=== PATIENT | male | born 1950 | race Caucasian/White ===

== ENCOUNTER 2016-06-10 21:28 | Outpatient (CLI) | payer SELFPAY | END 2016-06-10 21:29 | disposition EMS.NT | DX: R11.2 Nausea with vomiting, unspecified (principal) ==

== ENCOUNTER 2016-06-10 22:10 | Emergency (ER) | payer SELFPAY ==
[2016-06-11] MEDS ORDERED: ONDANSETRON 4 MG/2 ML VIAL IVP STA (01:03)
[2016-06-11] MEDS ORDERED: FOLIC ACID INJ 1 MG, THIAMINE INJ 100 MG, MAGNESIUM SULFATE 2 GM, MULTIVITAMIN 10 ML in... IV STA ×5 (01:03)
[2016-06-11] MEDS ORDERED: ONDANSETRON 4 MG/2 ML VIAL ONE (01:12)
[2016-06-11] MEDS ORDERED: MAGNESIUM SULFATE 2 GRAM 50 ML IV ONE (01:12)
[2016-06-11] MEDS ORDERED: THIAMINE 100 MG/1 ML 2 ML MDV ONE (01:12)
[2016-06-11] MEDS ORDERED: SODIUM CHLORIDE 0.9% 1,000 ML IV ONE (03:04)
[2016-06-11] MEDS ORDERED: ONDANSETRON ODT 4 MG TABLET TL STA (04:12)
[2016-06-11] MEDS ORDERED: ONDANSETRON ODT 4 MG TABLET ONE (04:16)
== END 2016-06-11 04:27 | disposition home or self-care (01) ==
DX: E86.0 Dehydration (principal); R11.2 Nausea with vomiting, unspecified
CPT/HCPCS: 36415; 80053; 83690; 84484; 85025; 96374; 96375; 99283; 99284; J3411; Q0162

== ENCOUNTER 2018-04-20 09:22 | Emergency (ER) | payer MEDICARE ==
[2018-04-20] MEDS ORDERED: TETANUS/DIPHTHERIA/PERTUSSIS 0.5 ML SYRINGE IM ONE (10:31)
--- NOTE | 2018-04-20 10:41 | ED Physician Documentation ---
PD HPI HEAD INJURY - Stated complaint Stated Complaint: GLF - Chief complaint Chief Complaint: Neuro - History obtained from History obtained from: Patient, Family - History of Present Illness Mechanism of head injury: Fell Where head injury occurred: Home Timing - onset: Last night Pain level max: 5 Pain level now: 3 Location of injury: Back Quality of pain: Pain, Aching, Dull Associated symptoms: LOC ("a few seconds"). No: Nausea / vomiting, Neck pain, Paresthesias, Seizures Symptoms improve with: Rest Symptoms worsen with: Palpation, Movement Contributing factors: No: Anticoagulated, Intoxicated Similar symptoms before: Has not had sx before Recently seen: Not recently seen Review of Systems Constitutional: denies: Fever, Chills Respiratory: denies: Cough GI: denies: Diarrhea Skin: denies: Rash Musculoskeletal: denies: Neck pain, Back pain Neurologic: denies: Focal weakness, Numbness PD PAST MEDICAL HISTORY - Past Medical History Past Medical History: Yes Cardiovascular: Congestive heart failure Endocrine/Autoimmune: None GI: None Psych: None Other Past Medical History: HX ONLY OF HTN - CONTROLLED W/ LISINOPRIL 5MG - Past Surgical History Past Surgical History: Yes - Present Medications Home Medications: Ambulatory Orders Medication Instructions Recorded Confirmed Cyclobenzaprine [Flexeril] 10 mg PO TID PRN #20 tablet 03/15/13 HYDROcod/ACETAM 5/325 [Vicodin 1 - 2 ea PO Q6H PRN #15 tablet 03/15/13 5/325] Ondansetron Odt [Zofran] 4 mg TL Q6H PRN #10 tablet 06/11/16 - Allergies Allergies/Adverse Reactions: Allergies Allergy/AdvReac Type Severity Reaction Status Date / Time No Known Drug Allergies Allergy Verified 03/15/13 12:04 - Social History Does the pt smoke?: No Smoking Status: Never smoker Does the pt drink ETOH?: Yes Does the pt have substance abuse?: No PD ED PE NORMAL - Vitals Vital signs reviewed: Yes - General General: Alert and oriented X 3, No acute distress - HEENT HEENT: PERRL, Moist mucous membranes, Other (Large U shaped laceration to the occiput. No palpable scalp hematomas) - Neck Neck: Supple, no meningeal sign, No bony TTP - Cardiac Cardiac: RRR - Respiratory Respiratory: No respiratory distress, Clear bilaterally - Derm Derm: Warm and dry - Neuro Neuro: Alert and oriented X 3, No motor deficit, No sensory deficit - Psych Psych: Normal mood, Normal affect Results - Vitals Vitals: Vital Signs - 24 hr 04/20/18 04/20/18 09:46 11:52 Temperature 36.8 C Heart Rate 77 74 Respiratory 16 16 Rate Blood Pressure 154/83 H 119/78 O2 Saturation 99 Oxygen O2 Source Room air - Rads (name of study) Head CT Radiology: Prelim report reviewed, EMP read contemporaneously, See rad report (No acute abnormality) Procedures - Laceration (location) Occipital Length in cm: 6 Wound type: Curved, Into subcut fat, Clean Neurovascular status: Sensory intact, Vascular intact Wound Preparation: Irrigated copiously NS Skin layer closure: Agapito Other: Patient tolerated well, No complications, Neurovascular intact, Tetanus booster given (Tdap) Complexity: Simple PD MEDICAL DECISION MAKING - ED course Complexity details: reviewed results, re-evaluated patient, considered differential, d/w patient, d/w family ED course: Patient with a closed head injury and an occipital scalp laceration. Repaired with agapito. Tolerated well. Negative head CT. Warnings of infection and instructions on wound care given at bedside. Also counseled on how to minimize scarring. Head injury instructions given at bedside patient and family counseled regarding signs and symptoms for which I believe and urgent re- evaluation would be necessary. Patient with good understanding of and agreement to plan and is comfortable going home at this time This document was made in part using voice recognition software. While efforts are made to proofread this document, sound alike and grammatical errors may occur. Departure - Departure Disposition: 01 Home, Self Care Clinical Impression: Scalp laceration Qualifiers: Encounter type: initial encounter Qualified Code(s): S01.01XA - Laceration without foreign body of scalp, initial encounter Head injury, closed Qualifiers: Encounter type: initial encounter Qualified Code(s): S09.90XA - Unspecified injury of head, initial encounter Condition: Good Instructions: ED Head Injury Closed, ED Laceration Scalp Stitch Or Stap Follow-Up: Wojciech Cevlalos DO [Primary Care Provider] - (in 10-14 days for staple removal ) Comments: Keep the wound clean. Return if you worsen. Your head CT is negative. The agapito should be removed in 10-14 days with your doctor. Return if you notice redness, swelling or drainage from the wound. Discharge Date/Time: 04/20/18 11:52
--- NOTE | 2018-04-20 11:04 | CT Report ---
Reason: fall, head injury Procedure Date: 04/20/2018 Accession Number: [id number] / [id number] Procedure: CT - HEAD WO CPT Code: FULL RESULT: EXAM: CT HEAD EXAM DATE: 04/20/2018 10:47 AM. CLINICAL HISTORY: Fall, head injury. Posterior laceration and bruising. COMPARISON: None. TECHNIQUE: Multiaxial CT images were obtained from the foramen magnum to the vertex. Reformats: Sagittal and coronal. IV contrast: None. In accordance with CT protocol optimization, one or more of the following dose reduction techniques were utilized for this exam: automated exposure control, adjustment of mA and/or KV based on patient size, or use of iterative reconstructive technique. FINDINGS: Parenchyma: No intraparenchymal hemorrhage. No evidence of mass, midline shift, or CT findings of infarction. Joe-white differentiation is distinct. Extraaxial Spaces: Normal for age. No subdural or epidural collections identified. Ventricles: Normal in size and position. Sinuses and Orbits: Imaged paranasal sinuses, orbits, and mastoids show no significant abnormality. Bones: No evidence of fracture or calvarial defect. Other: There is focal scalp soft tissue swelling and laceration at the posterior vertex. IMPRESSION: 1. No intracranial hemorrhage, mass-effect, or CT evidence of acute infarct, or other acute intracranial abnormality. 2. Focal scalp soft tissue swelling and laceration at the posterior vertex. RADIA
[2018-04-20] MEDS ORDERED: BACITRACIN OINT TOP STA (11:37)
[2018-04-20 11:54] VITALS: BP 119/78
== END 2018-04-20 11:52 | disposition home or self-care (01) ==
LOC: ED 09:22
DX: S01.01XA Laceration without foreign body of scalp, initial encounter (principal); S09.90XA Unspecified injury of head, initial encounter; W18.30XA Fall on same level, unspecified, initial encounter; Y92.009 Unspecified place in unspecified non-institutional (private) residence as the place of occurrence of the external cause; Z23 Encounter for immunization; I10 Essential (primary) hypertension
CPT/HCPCS: 12002; 70450; 90471; 90715; 99283; A9270

== ENCOUNTER 2019-01-10 07:26 | Emergency (ER) | payer MEDICARE ==
[2019-01-10] MEDS ORDERED: HYDROcod/ACETAM 5/325 MG TABLET PO STA (08:12)
--- NOTE | 2019-01-10 08:13 | ED Physician Documentation ---
History of Present Illness - Stated complaint Stated Complaint: ARM PX - Chief complaint Chief Complaint: Ext Problem - History obtained from History obtained from: Patient - History of Present Illness Timing: How many days ago (3) Pain level max: 9 Pain level now: 7 - Additonal information Additional information: This is a 68-year-old man who presents with complaints that for the Past 3 days he is been unable to lift his right arm away from his body. It started after his significant other had given him a neck rub. 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 He had the last 4-1/2 days off however. The pain is been increasing since it initially started as a 5-7 out of 10 at rest and goes up to 9 out of 10 if he tries to move it at all. He noticed a little numbness in the right hand while he was laying down but that resolved within minutes. He denies any prior neck or rotator cuff injury. He does have a history of bursitis and arthritis and uses occasional ibuprofen for the arthritis. He took 2 ibuprofen [id number] it did nothing to help the pain. Patient has felt a little bit of short of breath because of the pain but denies any chest pain or coughing. No fever. He has a history of hypertension and is not a diabetic. He is right-handed. Review of Systems Constitutional: denies: Fever Cardiac: denies: Chest pain / pressure Respiratory: denies: Dyspnea, Cough Musculoskeletal: reports: Extremity pain, Joint pain. denies: Neck pain Neurologic: reports: Numbness PD PAST MEDICAL HISTORY - Past Medical History Past Medical History: Yes Cardiovascular: Hypertension Endocrine/Autoimmune: None GI: None : None Psych: Depression, Anxiety Musculoskeletal: Osteoarthritis - Past Surgical History Past Surgical History: Yes - Present Medications Home Medications: Ambulatory Orders Medication Instructions Recorded Confirmed Hydrocodone/Acetaminophen 1 - 2 each PO Q6H PRN #14 tablet 01/10/19 [Hydrocodon-Acetaminophen 5-325] Lisinopril 5 mg PO DAILY 01/10/19 01/10/19 Naloxegol Oxalate [Movantik] 0 mg PO DAILY 01/10/19 01/10/19 - Allergies Allergies/Adverse Reactions: Allergies Allergy/AdvReac Type Severity Reaction Status Date / Time No Known Drug Allergies Allergy Verified 01/10/19 07:36 - Social History Does the pt smoke?: No Smoking Status: Never smoker Does the pt drink ETOH?: No Does the pt have substance abuse?: No Substance Use and Type: Marijuana PD ED PE NORMAL - Vitals Vital signs reviewed: Yes - General General: Alert and oriented X 3, No acute distress, Well developed/nourished - HEENT HEENT: Atraumatic, PERRL, Moist mucous membranes - Neck Neck: No bony TTP - Respiratory Respiratory: No respiratory distress - Derm Derm: Normal color, Warm and dry, No rash - Extremities Extremities: Other (The right shoulder actually looks a little swollen around the deltoid. He has pain at the greater trochanter. He is unable to lift the arm away from his body at all actively and passively can only abduct it to approximately 5 to 10 degrees. He has a 2+ radial pulse. Sensation is intact in the hand forearm and over the deltoid to light touch. He has 5 out of 5 gelatin maker utility strength and he is able to abduct the pinky and thumb.) - Neuro Neuro: Alert and oriented X 3, No motor deficit, No sensory deficit, Normal speech - Psych Psych: Normal mood, Normal affect Results - Vitals Vitals: Vital Signs - 24 hr 01/10/19 07:34 Temperature 36.4 C L Heart Rate 96 Respiratory 16 Rate Blood Pressure 151/98 H O2 Saturation 96 Oxygen O2 Source Room air PD MEDICAL DECISION MAKING - ED course Complexity details: reviewed results, d/w patient (The imaging showed calcific tendinitis and his symptoms and exam are consistent with rotator cuff tendinopathy. He received Hydrocodone 1 tablet and had slight improvement in the pain but still only able to abduct the arm about 5-10 degrees. Declined sling. Instructed on ROM eeercises. Rx for Hydrocodone provided.) Departure - Departure Disposition: 01 Home, Self Care Clinical Impression: Tendinopathy of right rotator cuff Condition: Good Instructions: ED Tendinitis Rotator Cuff Follow-Up: Wojciech Cevallos DO [Primary Care Provider] - Prescriptions: Hydrocodone/Acetaminophen [Hydrocodon-Acetaminophen 5-325] 1 - 2 each PO Q6H PRN #14 tablet PRN Reason: pain Comments: Take ibuprofen [id number] and ice the shoulder for pain. Hydrocodone if needed for pain but do not drive or operate machinery if taking the Hydrocodone. Do not take any Tylenol with the Hydrocodone. Do range of motion exercises as discussed. Follow-up with your doctor if pain not improving. Forms: Activity restrictions
--- NOTE | 2019-01-10 08:37 | XRAY Report ---
Reason: R shoulder pain Procedure Date: 01/10/2019 Accession Number: [id number] / [id number] Procedure: XR - Shoulder 3 View RT CPT Code: Final Report FULL RESULT: EXAM: RIGHT SHOULDER RADIOGRAPHY EXAM DATE: 01/10/2019 08:27 AM. CLINICAL HISTORY: R shoulder pain. COMPARISON: None. TECHNIQUE: 3 views. FINDINGS: Bones: Normal. No fracture or bone lesion. Joints: Glenohumeral osteophyte.. Mild AC joint hypertrophy. Soft tissues: Calcific tendinitis IMPRESSION: 1. Mild DJD. 2. Calcific tendinitis RADIA
[2019-01-10 09:35] VITALS: BP 137/98
== END 2019-01-10 09:37 | disposition home or self-care (01) ==
LOC: ED 07:26
DX: M75.31 Calcific tendinitis of right shoulder (principal); M19.011 Primary osteoarthritis, right shoulder; I10 Essential (primary) hypertension
CPT/HCPCS: 73030; 99283; 99284; A9270

== ENCOUNTER 2019-03-09 12:41 | Outpatient (CLI) | payer MEDICARE | END 2019-03-09 12:42 | disposition short-term general hospital (02) | LOC: EMS 12:41 | PROVIDERS: ATTEND Surgery | DX: R07.9 Chest pain, unspecified (principal) | CPT/HCPCS: A0425; A0427 ==

== ENCOUNTER 2020-01-02 19:49 | Outpatient (CLI) | payer MEDICARE | END 2020-01-02 19:50 | disposition EMS.NT | LOC: EMS 19:49 | PROVIDERS: ATTEND Surgery | DX: R29.810 Facial weakness (principal); R29.818 Other symptoms and signs involving the nervous system ==

== ENCOUNTER 2020-01-02 20:29 | Observation (INO) | payer MEDICARE ==
[2020-01-02 20:50] LABS: BASOPHILS # (AUTO) 0.1 10^3/uL (0.0-0.1); BASOPHILS % (AUTO) 0.8 %; EOSINOPHILS # (AUTO) 0.1 10^3/uL (0.0-0.7); EOSINOPHILS % (AUTO) 0.6 %; HGB - HEMOGLOBIN 15.1 g/dL (14.0-18.0); LYMPHOCYTES # (AUTO) 2.7 10^3/uL (1.5-3.5); LYMPHOCYTES % (AUTO) 34.4 %; MEAN CORPUSCULAR HEMOGLOBIN 33.7 pg (27.0-31.0); MEAN CORPUSCULAR HGB CONC 34.6 g/dL (32.0-36.0); MEAN CORPUSCULAR VOLUME 97.3 fL (80.0-94.0); MEAN PLATELET VOLUME 10.2 fL (7.4-11.4); MONOCYTES # (AUTO) 0.7 10^3/uL (0.0-1.0); MONOCYTES % (AUTO) 9.3 %; NEUTROPHILS # (AUTO) 4.3 10^3/uL (1.5-6.6); NEUTROPHILS % (AUTO) 54.5 %; PLT - PLATELET COUNT 133 10^3/uL (130-450); RED BLOOD COUNT 4.48 10^6/uL (4.70-6.10); RED CELL DISTRIBUTION WIDTH 13.4 % (12.0-15.0); WHITE BLOOD COUNT 7.9 x10^3/uL (4.8-10.8)
--- NOTE | 2020-01-02 20:52 | ED Physician Documentation ---
PD HPI FOCAL NEURO - Stated complaint Stated Complaint: DIZZY, UNABLE TO WALK, LEFT SIDED DROOPING - Chief complaint Chief Complaint: Neuro - History obtained from History obtained from: Patient - History of Present Illness Timing - onset: How many hours ago (6) Timing - duration: Hours (6) Timing - details: Abrupt onset Severity of deficit: Moderate Weakness: Face, Arm, Leg, Left Numbness: No: Face, Arm, Hand, Leg, Foot, Right, Left Associated symptoms: Fall (states fell yesterday into the bushes coming out of a store.). No: Headache, Nausea / vomiting, Seizure, Syncope Baseline status: positive: A&OX3, ambulatory, indep Similar symptoms before: Has not had sx before Recently seen: Not recently seen Review of Systems Ten Systems: 10 systems reviewed and negative Constitutional: denies: Fever, Chills Nose: denies: Rhinorrhea / runny nose, Congestion Cardiac: denies: Chest pain / pressure Respiratory: denies: Cough GI: denies: Abdominal Pain, Nausea, Vomiting, Diarrhea Skin: denies: Rash Musculoskeletal: denies: Neck pain, Back pain Neurologic: denies: Confused, Altered mental status, Headache PD PAST MEDICAL HISTORY - Past Medical History Cardiovascular: Hypertension Endocrine/Autoimmune: None GI: None : None Psych: Depression, Anxiety Musculoskeletal: Osteoarthritis - Past Surgical History Past Surgical History: Yes - Present Medications Home Medications: Ambulatory Orders Medication Instructions Recorded Confirmed lisinopriL [Lisinopril] 10 mg PO DAILY 01/10/19 01/10/19 Aspirin Chewable [[place] 1 tab PO DAILY 01/02/20 01/02/20 Aspirin] - Allergies Allergies/Adverse Reactions: Allergies Allergy/AdvReac Type Severity Reaction Status Date / Time No Known Drug Allergies Allergy Verified 01/10/19 07:36 - Social History Does the pt smoke?: No Smoking Status: Never smoker Does the pt drink ETOH?: No Does the pt have substance abuse?: No PD ED PE NORMAL - Vitals Vital signs reviewed: Yes - General General: Alert and oriented X 3, No acute distress, Well developed/nourished - HEENT HEENT: Atraumatic, PERRL, Moist mucous membranes, Pharynx benign - Neck Neck: Supple, no meningeal sign, No bony TTP - Cardiac Cardiac: RRR, Strong equal pulses - Respiratory Respiratory: No respiratory distress, Clear bilaterally - Abdomen Abdomen: Soft, Non tender, Non distended - Derm Derm: Warm and dry - Extremities Extremities: No edema, No calf tenderness / cord - Neuro Neuro: Alert and oriented X 3, stove cleaner 2-12 intact, No motor deficit, No sensory deficit, Normal speech Eye Opening: Spontaneous Motor: Obeys Commands Verbal: Oriented GCS Score: 15 - Psych Psych: Normal mood, Normal affect NIHSS - Time Time: 20:32 - Level of Consciousness Level of consciousness: (0) Alert, Keenly responsive LOC Questions: (0) Answers both Q's correct LOC Commands: (0) Performs both correctly - Gaze Best Gaze: (0) Normal - Visual Visual: (0) No loss - Facial Palsy Facial Palsy: (0) Normal, symmetrical movement - Motor Arms (both separate) Motor Arm (right): (0) No drift Motor Arm (left): (0) No drift - Motor Legs (both separate) Motor Leg (right): (0) No drift Motor Leg (left): (0) No drift - Limb Ataxia Limb Ataxia: (0) Absent - Sensory Sensory: (0) Normal - Best Language Best Language: (0) No aphasia - Dysarthria Dysarthria: (0) Normal - Extinction and Inattention (formally neg Extinction and inattention: (0) No abnormality - Total Score/Results Total Score/Result: 0 Results - Vitals Vitals: Vital Signs - 24 hr 01/02/20 01/02/20 01/02/20 20:35 21:11 21:43 Temperature 37 C Heart Rate 84 87 90 Respiratory 20 15 16 Rate Blood Pressure 167/99 H 155/92 H 147/92 H O2 Saturation 97 98 99 Oxygen O2 Source Room air - EKG (time done) 2031 Rate: Rate (enter#) (86) Rhythm: NSR [place]: Normal Intervals: Normal MO QRS: Normal Ischemia: Normal ST segments, Q waves (III) - Labs Labs: Laboratory Tests 01/02/20 01/02/20 01/02/20 20:37 20:43 20:43 WBC 7.9 RBC 4.48 L Hgb 15.1 Hct 43.6 MCV 97.3 H MCH 33.7 H MCHC 34.6 RDW 13.4 Plt Count 133 MPV 10.2 Neut # (Auto) 4.3 Lymph # (Auto) 2.7 [place] # (Auto) 0.7 Eos # (Auto) 0.1 Baso # (Auto) 0.1 Absolute Nucleated RBC 0.00 Nucleated RBC % 0.0 PT INR APTT Sodium 140 Potassium 3.6 Chloride 96 L Carbon Dioxide 26 Anion Gap 18.0 H BUN 13 Creatinine 0.7 Estimated GFR (MDRD) 111 Glucose 93 POC Whole Bld Glucose 84 Calcium 9.3 Total Bilirubin 0.6 AST 88 H ALT 85 H Alkaline Phosphatase 105 Total Protein 8.7 H Albumin 4.8 Globulin 3.9 Albumin/Globulin Ratio 1.2 Lipase 61 H 01/02/20 20:43 WBC RBC Hgb Hct MCV MCH MCHC RDW Plt Count MPV Neut # (Auto) Lymph # (Auto) [place] # (Auto) Eos # (Auto) Baso # (Auto) Absolute Nucleated RBC Nucleated RBC % PT 13.1 H INR 1.2 APTT 25.6 Sodium Potassium Chloride Carbon Dioxide Anion Gap BUN Creatinine Estimated GFR (MDRD) Glucose POC Whole Bld Glucose Calcium Total Bilirubin AST ALT Alkaline Phosphatase Total Protein Albumin Globulin Albumin/Globulin Ratio Lipase - Rads (name of study) head CT Radiology: Prelim report reviewed, EMP read contemporaneously, See rad report (no acute abnormality.) PD MEDICAL DECISION MAKING - ED course Complexity details: reviewed results, re-evaluated patient, considered differential, d/w patient ED course: Symptoms fully resolved in the emergency department. ABCD 2 score is 6. High risk. CT angiogram of the head and neck were ordered. These will be followed up by the hospitalist. Patient will be placed into observation for TIA work-up. Has never had similar symptoms and has never had a TIA work-up. Patient did take aspirin prior to arrival today. Discussed the case with Dr. Baig, hospitalist who graciously accepts This document was made in part using voice recognition software. While efforts are made to proofread this document, sound alike and grammatical errors may occur. Departure - Departure Disposition: ED Place in Observation Clinical Impression: TIA (transient ischemic attack) Condition: Stable
[2020-01-02 20:55] LABS: INR 1.2 (0.8-1.2); PT - PROTHROMBIN TIME 13.1 secs (9.9-12.6)
[2020-01-02 21:02] LABS: PARTIAL THROMBOPLASTIN TIME 25.6 secs (24.9-33.3)
[2020-01-02 21:06] LABS: ALBUMIN 4.8 g/dL (3.2-5.5); ALBUMIN/GLOBULIN RATIO 1.2 (1.0-2.2); BILIRUBIN,TOTAL 0.6 mg/dL (0.2-1.0); CALCIUM 9.3 mg/dL (8.5-10.3); CREATININE 0.7 mg/dL (0.6-1.2); TOTAL PROTEIN 8.7 g/dL (6.7-8.2)
--- NOTE | 2020-01-02 21:06 | CT Report ---
PROCEDURE: Head W/O Stroke Protocol INDICATIONS: L sided weakness TECHNIQUE: Noncontrast 4.5 mm thick angled axial sections acquired from the foramen magnum to the vertex, with c oronal reformats. For radiation dose reduction, the following was used: automated exposure control, adjustment of mA and/or kV according to patient size. COMPARISON: FINDINGS: Image quality: Excellent. CSF spaces: Basal cisterns are patent. No extra-axial fluid collections. Ventricles are normal in size and shape. Brain: No midline shift. No intracranial masses or hemorrhage. Joe-white matter interface is norm al. Skull and face: Calvarium and visualized facial bones are intact, without suspicious lesions. Sinuses: Visualized sinuses and mastoids are clear. IMPRESSION: Normal examination, no contraindication to TPA administration is found. These findings were immediately called to the emergency room physician caring for the patient, and di scussed in detail. Time of call was 9:01:00 in the evening. This study fulfills neurological imaging criteria for inclusion or exclusion of acute stroke therapie s based on available published neurological imaging guidelines. Reviewed by: Lc Rico MD on 01/02/2020 9:05 PM PST Approved by: Lc Rico MD on 01/02/2020 9:05 PM PST Station ID: [id number]
[2020-01-02] MEDS ORDERED: ONDANSETRON ODT 4 MG TABLET TL PRN (21:45)
[2020-01-02] MEDS ORDERED: ACETAMINOPHEN 325 MG TABLET PO PRN (21:45)
[2020-01-02] MEDS ORDERED: oxyCODONE 5 MG TABLET PO PRN (21:45)
[2020-01-02] MEDS ORDERED: ONDANSETRON 4 MG/2 ML VIAL IVP PRN (21:45)
[2020-01-02] MEDS ORDERED: SODIUM CHLORIDE FLUSH 0.9% 10 ML SYRINGE IVP PRN (21:45)
[2020-01-02] MEDS ORDERED: ATORVASTATIN 40 MG TABLET PO STA (21:49)
[2020-01-02] MEDS ORDERED: ASPIRIN 325 MG TABLET PO STA (21:49)
[2020-01-02] MEDS ORDERED: IOVERSOL 320 100 ML VIAL IVP ONE ×2 (21:56→22:38)
--- NOTE | 2020-01-02 21:56 | HISTORY & PHYSICAL EXAMINATION ---
Chief Complaint - Chief Complaint Chief Complaint: Left facial droop and left body weakness History of Present Illness - Admitted From Admitted From:: Home via private vehicle to ER - History Obtained From Records Reviewed: [facility] History obtained from: Dr. Ramon and patient Exam Limitations: None - History of Present Illness HPI Comment/Other: This is a 69-year-old white male whose risk for stroke is male sex, age, and hypertension. He does not smoke. He does not have diabetes. He fell yesterday into the bushes coming out of a store. Cannot say why he fell, But he felt dizzy. In the 30 feet it take to get to his girlfriend's car he just could not keep his balance and fell onto the bushes outside of [employer]. He denied loss of consciousness, palpitations, shortness of breath. No facial dysesthesias. He then hadhad an abrupt onset of left facial droop, left body weakness 6 hours prior to admission. He states that he was not weak. That he had no focal deficits. He was just hurting over his left hip and his left knee where he fell. He is not aware that he was having focal deficits according to his family. He is completely surprised when I tell him that. He said that by the time he got to the emergency room he was feeling fine and he only came here because he was worried. He felt disoriented, not right, and his left leg was not moving the way it was supposed to. He attributed the lack of movement to falling on the ground and hurting his hip. He lives with his girlfriend. Her son was visiting from [place] and drove him to the emergency room. He was evaluated by Dr. Ramon in the emergency room and blood pressure is 167/99. It is subsequently gone down to 147/92. He is afebrile, normotensive, oxygenating well on room air. His telemetry showed sinus rhythm, EKG shows sinus rhythm. His total NIH SS score is 0. He is alert, responsive, answering questions and performing commands correctly. No cranial nerve or motor deficit. As such all of his symptomatology has resolved by the time is gotten to the emergency room. CT of the head is a normal examination. CT angiogram of the head and neck are ordered and pending. History - Past Medical History Cardiovascular: reports: Hypertension, Coronary artery disease (He said that he fell flat on his face at a music festival in [place] about 3 years ago. He never got an evaluation for and did see a local doctor who told him he may have had a heart attack.) Respiratory: reports: None Neuro: reports: Other (Numerous falls at work. 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 Dad at age 67 of metastatic lung cancer and was also a smoker. 1 sister is 76 and healthy. One daughter has been smoking since the age of 14 and he worries about her getting emphysema. But no hypertension, diabetes, cancer, heart attack Living arrangement: At home Living Situation: With spouse/s.o. Social History Notes: Born and raised in the [facility]. 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 Came to [facility] approximately 10 years ago with his girlfriend. She is born and raised in [place], and came back to take care of her mom. They moved in to her mom's house, and took care of her until she . He still lives with his girlfriend. He never smoked cigarettes. 50 years ago, in the 70s he did speed a couple of times but he is never done heroin, LSD, cocaine. He does have a history of alcohol abuse. He is drinking up to half a pint of vodka a day sometimes. Started cutting back 5 years ago. Right now he is doing about a beer a day. once before. . His girlfriend is Yvonne Morgan. He regards her as his DURABLE POWER OF BALLING HEAD TENDER. I am also allowed to speak to his daughter, Saba Montelongo if need be. - Substance History Use: Uses substance without health or social issues: Alcohol Abuse: Recurrent use of substance despite neg consequences: NONE Dependence: Experiences withdrawal or developed tolerances: NONE - POLST Patient has POLST: No POLST Status: Full Code Meds/Allgy - Home Medications Home Medications: Ambulatory Orders Medication Instructions Recorded Confirmed lisinopriL [Lisinopril] 10 mg PO DAILY 01/10/19 01/10/19 Aspirin Chewable [[place] 1 tab PO DAILY 01/02/20 01/02/20 Aspirin] - Allergies Allergies/Adverse Reactions: Allergies Allergy/AdvReac Type Severity Reaction Status Date / Time No Known Drug Allergies Allergy Verified 01/10/19 07:36 Review of Systems - Constitutional Constitutional: reports: Other (All constitutional review of systems negative) - Eyes Eyes: reports: Other (Developing rapid generalized vision loss.). denies: Pain, Amaurosis, Spots in vision, Field loss - Ears, Nose & Throat Ears, Nose & Throat: reports: Hearing loss, Tinnitus, Bleeding gums, Dental decay, Dental pain. denies: Ear pain, Hearing aids, Vertigo, Nasal pain, Nasal discharge, Postnasal drainage, Sore throat, Hoarseness - Cardiovascular Cariovascular: reports: Lightheadedness. denies: Irregular heart rate, Palpitations, Chest pain, Edema, Syncope, Exertional dyspnea, Decr. exercise tolerance - Respiratory Respiratory: denies: Cough, Sputum production, Wheezing, Snoring, SOB at rest, SOB with exertion - Gastrointestinal Gastrointestinal: denies: Abdominal pain, Abdominal distention, Constipation, Diarrhea, Bloody stools, Nausea - Genitourinary Genitourinary: reports: Frequency, Urgency, Other (Decreased urinary stream) - Musculoskeletal Musculoskeletal: reports: Muscle pain, Back pain, Muscle aches, Limited range of motion, Joint pain, Other (Multiple joint deformities over the years. Right now his left hand is cut from the fall yesterday, left wrist really hurts and left hip really hurts.) - Integumentary Integumentary: denies: Rash, Pruritis, Lesions - Neurological Neurological: reports: Dizziness (Yesterday causing the fall). denies: General weakness, Focal weakness, Headache, Incoordination, Slurred speech - Psychiatric Psychiatric: reports: Depression, Anxiety. denies: Delusions, Hallucinations - Endocrine Endocrine: denies: Polyuria, Polydypsia, Polyphagia - Hematologic/Lymphatic Hematologic/Lymphatic: denies: Anemia, Bruising, Petechiae, Blood clots Prior Level of Functionality: Completely independent with activities of daily living. Drives a car. Pays his own bills. Exam - Vital Signs Reviewed Vital Signs: Yes Vital Signs: Vital Signs x48h Temp Pulse Resp BP Pulse Ox 01/02/20 21:43 90 16 147/92 H 99 01/02/20 21:11 87 15 155/92 H 98 01/02/20 20:35 37 C 84 20 167/99 H 97 - Physical Exam General Appearance: positive: No acute distress, Alert, Other (5 foot 5 inch w jony male who 61.96 kg. 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 Back of scalp covered in old scars from lacerations. Multiple teeth missing.) Eyes Bilateral: positive: PERRL, EOMI ENT: positive: Pharynx nml, No signs of dehydration Neck: positive: No JVD, Lymphadenopathy (R) (Shotty), Lymphadenopathy (L) (Shotty). negative: Stiff neck Respiratory: positive: No respiratory distress. negative: Wheezes, Rales, Rhonchi Cardiovascular: positive: Regular rate & rhythm, Systolic murmur. negative: Gallop/S4, Friction rub Peripheral Pulses: positive: 1+ Abdomen: positive: Non-tender, No organomegaly, Nml bowel sounds, No distention Skin: positive: Warm, Dry Extremities: positive: No pedal edema, Other (Multiple fingers in the DIP and PIP areas deformed. Ulnar insertion site deformed on left hand. Lacerations on fingers on left hand. Tender left wrist. Tender left hip to touch. But range of motion intact.) Neurologic/Psychiatric: positive: Oriented x3, CN's nml (2-12), Motor nml, Sensation nml Conclusion/Plan - Problem List (1) TIA (transient ischemic attack) Conclusion/Plan: Symptoms of all resolved. Exam is now negative. Plan: Observation Aspirin 325 High-dose statin Review CT angiogram of head and neck Telemetry Echocardiogram MRI head (2) Hypertension Conclusion/Plan: Patient is on lisinopril. We will hold off on giving that. Allow blood pressure to run high in the face of a TIA. I.e. permissive hypertension Qualifiers: Hypertension type: essential hypertension Qualified Code(s): I10 - Essential (primary) hypertension (3) Fall due to stumbling Conclusion/Plan: He does not give a history of syncope. There is no palpitations. Difficult to say there is any arrhythmia involved in this fall yesterday resulting in the left wrist and left hip pain. Will check left hip film and left knee film tomorrow morning. Qualifiers: Encounter type: initial encounter Qualified Code(s): W01.0XXA - Fall on same level from slipping, tripping and stumbling without subsequent striking against object, initial encounter (4) Elevated liver enzymes Conclusion/Plan: He has an alcohol abuse history. No history of withdrawal or seizures. He also denies cirrhosis. Still drinking 1 beer a day. Plan: Acute hepatitis panel Ferritin, ceruloplasmin Ultrasound of liver - Lab Results Lab results reviewed: Yes Fish Bones: 01/02/20 20:43 01/02/20 20:43 - Diagnostic Imaging Results Diagnostic Imaging Results: positive: Final report reviewed Diagnostic Imaging Results Comments: CT of head without midline shift, intracranial masses or hemorrhage. - EKG Results EKG Interpreted Independently: No EKG Comparison: No prior EKG EKG Findings: Normal sinus rhythm. 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 No acute ST-T wave changes.
[2020-01-02 23:36] LABS: C. PNEUMONIAE- RESP PCR PANEL NOT DETECTED
[2020-01-03] MEDS: SODIUM CHLORIDE FLUSH 0.9% 10 ML SYRINGE IVP SCH ×2 (01:58→09:09)
[2020-01-03 05:32] LABS: BASOPHILS # (AUTO) 0.1 10^3/uL (0.0-0.1); BASOPHILS % (AUTO) 1.1 %; EOSINOPHILS # (AUTO) 0.1 10^3/uL (0.0-0.7); EOSINOPHILS % (AUTO) 0.9 %; HGB - HEMOGLOBIN 13.8 g/dL (14.0-18.0); LYMPHOCYTES # (AUTO) 1.8 10^3/uL (1.5-3.5); LYMPHOCYTES % (AUTO) 32.2 %; MEAN CORPUSCULAR HEMOGLOBIN 33.3 pg (27.0-31.0); MEAN CORPUSCULAR VOLUME 97.8 fL (80.0-94.0); MEAN PLATELET VOLUME 10.5 fL (7.4-11.4); MONOCYTES # (AUTO) 0.6 10^3/uL (0.0-1.0); MONOCYTES % (AUTO) 11.3 %; NEUTROPHILS % (AUTO) 54.1 %; PLT - PLATELET COUNT 124 10^3/uL (130-450); RED BLOOD COUNT 4.15 10^6/uL (4.70-6.10); RED CELL DISTRIBUTION WIDTH 13.4 % (12.0-15.0); WHITE BLOOD COUNT 5.6 x10^3/uL (4.8-10.8)
[2020-01-03 05:51] LABS: CHOL/HDL RATIO 2.8 (<5.0); CHOLESTEROL 210 mg/dL; HDL CHOLESTEROL 75 mg/dL; LDL CHOLESTEROL,CALCULATED 108 mg/dL; LDL/HDL RATIO 1.4 (<3.6); VLDL CHOLESTEROL 27 mg/dL
--- NOTE | 2020-01-03 08:21 | Ultrasound Report ---
PROCEDURE: Abdomen Complete INDICATIONS: elevated LFT in alcohol abuse hx TECHNIQUE: Real-time scanning was performed of the abdominal and retroperitoneal organs, with image documentatio n. COMPARISON: None. FINDINGS: Liver: Liver is normal in size and mildly heterogeneous in echotexture, with increased echotexture c onsistent with a combination of fatty infiltration and likely cirrhosis. Gallbladder: Gallbladder appears normal Biliary ducts: Intrahepatic bile ducts are non-dilated. Extrahepatic bile duct caliber measures 3.0 mm. Normal is 6-7 mm or less in diameter, or 10 mm or less post-cholecystectomy. Pancreas: Visualized portions of the pancreas are sonographically normal. Spleen: Spleen is normal in size and homogeneous in echotexture. Kidneys: Kidneys are normal in size and echotexture. Right kidney measures 10.1 cm long; left kidne y measures 9.7 cm long. No hydronephrosis or nephrolithiasis. No solid masses. A left renal cortic al cyst is present measuring only 1.6 cm in maximal dimension. Aorta: Visualized aorta is normal in caliber at less than 3 cm. Iliacs: Proximal common iliac arteries are normal in caliber at less than 2.5 cm. IVC: Intrahepatic inferior vena cava is patent. Miscellaneous: No free abdominal fluid. Note is made of a 160 cc postvoid bladder volume. IMPRESSION: Cirrhosis and fatty infiltration within the liver is considered likely present by the appearance of t he liver and the clinical history provided. The spleen is not enlarged, ascites is not found. Inciden cindy note is made of post void residual in this patient of 160 cc. Reviewed by: Lc Rico MD on 01/03/2020 8:20 AM [facility] Approved by: Lc Rico MD on 01/03/2020 8:20 AM PST Station ID: [id number]
[2020-01-03] MEDS ORDERED: LORazepam 2 MG/ML VIAL IVP PRN (09:16)
[2020-01-03 09:44] LABS: ALBUMIN 3.9 g/dL (3.2-5.5); ALBUMIN/GLOBULIN RATIO 1.1 (1.0-2.2); BILIRUBIN,TOTAL 0.8 mg/dL (0.2-1.0); CREATININE 0.6 mg/dL (0.6-1.2); TOTAL PROTEIN 7.6 g/dL (6.7-8.2)
--- NOTE | 2020-01-03 09:46 | CT Report ---
PROCEDURE: ANGIO HEAD W/WO INDICATIONS: L sided facial droop, L sided weakness, resolved CONTRAST: IV CONTRAST: Optiray 320 ml: 80 PO CONTRAST: *NO PO CONTRAST TECHNIQUE: Precontrast 4.5 mm thick angled axial sections acquired from the foramen magnum to the vertex. Afte r the administration of intravenous contrast, 1 mm thick sections acquired through the [place] of [place] is. Postcontrast 4.5 mm thick sections then re-acquired from the foramen magnum to the vertex. 3-di mensional xyiomam-ggflsfmzk-mvwmcavleu (MIP) and/or volume rendering reformats were acquired of the c entral intracranial vasculature. For radiation dose reduction, the following was used: automated ex posure control, adjustment of mA and/or kV according to patient size. COMPARISON: 04/20/2018 FINDINGS: Image quality: Excellent. Anterior circulation: Scattered athero splenic calcifications noted within the bilateral intracrania l internal carotid arteries without occlusion or hemodynamically significant stenosis. The flow withi n the paired anterior cerebral arteries is normal and symmetric. The flow within the middle cerebral arteries is normal and symmetric. The anterior communicating artery is seen. No aneurysms are seen . Posterior circulation: Visualized portions of the vertebral arteries demonstrate normal caliber, and join to form a normal appearing basilar artery. Flow within the posterior cerebral arteries is norm al and symmetric. No aneurysms are seen. CSF spaces: Ventricles are normal in size and shape. Basal cisterns are patent. No extra-axial flu id collections. Brain: No midline shift. No intracranial bleeds or masses. Joe-white matter interface appears int act. There is diffuse cortical volume loss with associated ex vacuo dilatation of the bilateral vent ricles. No acute intracranial hemorrhage or evidence of transcortical infarction. Scattered bilater al periventricular white matter hypoattenuation likely sequela from chronic small vessel ischemic dis ease. Atherosclerotic calcifications within the intracranial segments of the bilateral internal carot id arteries are noted. Skull and face: Calvarium and facial bones appear intact, without suspicious lesions. Sinuses: Visualized sinuses and mastoids are clear. IMPRESSION: 1. CT head without acute intracranial abnormalities. 2. Negative CT angiogram the head for hemodynamically significant stenosis, occlusion, dissection, or aneurysm. 3. Age-related senescent changes and sequela of chronic small vessel ischemic disease. No significant discrepancy with initial interpretation by overnight radiologist. Reviewed by: Javi Donahue MD on 01/03/2020 9:45 AM PST Approved by: Javi Donahue MD on 01/03/2020 9:45 AM PST Station ID: [id number]
--- NOTE | 2020-01-03 09:47 | PHARMACY PROGRESS NOTE ---
- Best Possible Medication History Admit Date and Time: 01/02/20 2367 Processed by: Pharmacy Medication History completed: Yes Patient Interview: Completed Secondary Source(s): Insurance records As the person ultimately responsible for medication therapy, providers are able to order a medication from an existing home medication list in [facility] via the "Reconcile Routine" prior to Confirmation of that medication by clinical support tech. Such practice is discouraged except when the physician, in their clinical judgment, deems that a medical need exists for a medication without regard to previous use.
[2020-01-03 09:52] LABS: BILIRUBIN,URINE NEGATIVE (NEGATIVE); GLUCOSE, URINE (UA) NEGATIVE (NEGATIVE); KETONES,URINE (UA) 15 mg/dL (NEGATIVE); LEUKOCYTE ESTERASE, URINE NEGATIVE (NEGATIVE); NITRITE,URINE NEGATIVE (NEGATIVE); OCCULT BLOOD,URINE TRACE-INTA (NEGATIVE); PH,URINE 5.5 PH (5.0-7.5); PROTEIN,URINE 30 mg/dL (NEGATIVE); UROBILINOGEN,URINE 0.2 (NORMAL) E.U./dL (NORMAL)
[2020-01-03 09:56] LABS: CLARITY,URINE CLEAR (CLEAR)
--- NOTE | 2020-01-03 09:56 | CT Report ---
PROCEDURE: ANGIO NECK W INDICATIONS: L sided facial droop, L sided weakness, resolved CONTRAST: IV CONTRAST: Optiray 320 ml: 80 PO CONTRAST: *NO PO CONTRAST TECHNIQUE: After the administration of intravenous contrast, 1.5 mm axial sections acquired from the aortic arch to the [place]. Coronal 3-D maximum intensity projection (MIP) and/or volume rendering ref ormats were then performed. For radiation dose reduction, the following was used: automated exposur e control, adjustment of mA and/or kV according to patient size. COMPARISON: None. FINDINGS: Image quality: Excellent. Carotid system: The great vessels demonstrate a conventional anatomy as they arise from the aortic a rch. The origins of the common carotid arteries appear patent. The common carotid arteries demonstr ate normal calibers and courses. There is atherosclerosis at the carotid bifurcations bilaterally wi th less than 50% stenosis at the origins of the bilateral internal carotid arteries. The internal car otid arteries demonstrate normal caliber and course. Intracranial segment of the bilateral internal c arotid arteries demonstrate atherosclerosis without hemodynamically significant stenosis. Posterior circulation: The origins of the vertebral arteries appear patent. A few scattered atherosc lerotic calcifications are noted in the vertebral arteries. Left vertebral artery appears to originat e off the aortic arch. The more superior portions of the vertebral arteries demonstrate normal course and caliber. They join to form a normal appearing basilar artery. Soft tissues: Visualized neck soft tissues demonstrate no suspicious abnormalities. The thyroid gla nd is normal in size. Bones: No suspicious bony lesions. Multiple mandibular dental caries are noted. Visualized cervical spine appears normally aligned. Moderate multilevel cervical spondylosis most pronounced from C5-6 through C7-T1. No acute compression fractures of the imaged spine. Craniocervical junction is intact. IMPRESSION: 1. There is less than 50% stenosis at the origin of the bilateral internal carotid arteries. Otherwis e, negative CT angiogram of the neck. 2. CT neck without acute abnormalities. 3. Multilevel cervical spondylosis most severe from C5-6 through C7-T1. 4. Several mandibular dental caries incidentally noted. Recommend clinical correlation. The estimate of stenosis included in the report of the imaging study was calculated using the NASCET method No significant discrepancy with initial interpretation by overnight radiologist. Reviewed by: Javi Donahue MD on 01/03/2020 9:55 AM PST Approved by: Javi Donahue MD on 01/03/2020 9:55 AM PST Station ID: [id number]
[2020-01-03 10:11] LABS: BACTERIA,URINE Rare /HPF (None Seen); MUCUS,URINE Few Strands; SQUAMOUS EPITHELIAL CELL,UR RARE Squamous (<= Few)
--- NOTE | 2020-01-03 12:01 | MRI Report ---
PROCEDURE: Brain W/O INDICATIONS: tia TECHNIQUE: Noncontrast axial T1 spin echo, axial T2 fast spin echo, sagittal and axial FLAIR, coronal T2 fast sp in echo, axial gradient echo, axial diffusion and ADC through the brain. COMPARISON: CT head 04/20/2018. CT angiography head and neck 11/02/2019. FINDINGS: Image quality: Excellent. CSF Spaces: Basal cisterns are patent. No extra-axial fluid collections. Ventricles are normal in size and shape. Brain: No intracranial masses or hemorrhage. Joe/white matter interface is normal. There is mild, diffuse cerebral volume loss. There are mild periventricular and subcortical white matter chronic mehdi rovascular ischemic changes. Brainstem appears normal. Diffusion-weighted images demonstrate no acut e ischemic insult. No chronic ischemic insults. Normal intravascular flow voids are present. Skull and face: Calvarium has normal marrow signal. Orbits appear normal. Sinuses: Sinuses and mastoids are clear. IMPRESSION: 1. No acute intracranial disease process. 2. No areas of acute or chronic infarction. 3. No abnormal internal mass or mass effect. 4. Mild, diffuse cerebral volume loss. 5. Mild periventricular and subcortical white matter chronic microvascular ischemic change. Reviewed by: Shelli Bautista MD, PhD on 01/03/2020 12:00 PM PST Approved by: Shelli Bautista MD, PhD on 01/03/2020 12:00 PM PST Station ID: [id number]
--- NOTE | 2020-01-03 14:08 | Discharge Plan ---
Discharge Plan Problem Reviewed?: Yes Disposition: Home, Self Care Condition: Stable Diet: Regular Activity Restrictions: Activity as Tolerated Shower Restrictions: No (fall precaution) Instruction Topics: TIA, Atorvastatin tablets Health Concerns: your symptoms were resolved. your all image studies are unremarkable. your Cholesterol level is slight high, Lipitor is prescribed for you Plan of Treatment: as above Care Goals: stabilization and improvement of your medical conditions Assessment: discuss the test results and care plan with you, you understood Additional Instructions or Follow Up instructions: You may followup with your PCP in 1-2 weeks, should your symptoms return or worsen, you may present ER or call 911 for help. No Smoking: If you smoke, Please STOP! Call for help. Follow-up with: Wojciech Cevallos DO [Primary Care Provider] -
--- NOTE | 2020-01-03 14:15 | DISCHARGE SUMMARY ---
Discharge Summary Admit Date: 01/02/20 Discharge Date: 01/03/20 Discharging Provider: Rusty Lee Primary Care Provider: Dr. Garcia Condition at Discharge: Stable Discharge Disposition: 01 Home, Self Care Discharge Facility Name: home - DIAGNOSES Discharge Diagnoses with Status of Each Condition: (1) TIA (transient ischemic attack) All Symptoms were resolved. Exam is now negative. PT/OT Evaluated patient and released the patient as well. patient image studies including MRI of the brain, CTA of the neck and head, echo all are unremarkable. (2) Hypertension stable (3) Fall due to stumbling He does not give a history of syncope. There is no palpitations. Patient denies any injury or pain. PT/OT Evaluated patient and released the patient as well. Educated patient for fall prevention. pt has hx of alcohol abuse. (4) Elevated liver enzymes Conclusion/Plan: Slight elevated and improved. He has an alcohol abuse history. No history of withdrawal or seizures. US reveals cirrhosis but no ascites. advise pt quit alcohol. (5)elevated cholesterol pt has slight elevated cholesterol level. pt is prescribed lipitor. - [facility] History of Present Illness: refer from Dr. Baig's HPI on 01/02/2020 This is a 69-year-old white male whose risk for stroke is male sex, age, and hypertension. He does not smoke. He does not have diabetes. He fell yesterday into the bushes coming out of a store. Cannot say why he fell, But he felt dizzy. In the 30 feet it take to get to his girlfriend's car he just could not keep his balance and fell onto the bushes outside of [employer]. He denied loss of consciousness, palpitations, shortness of breath. No facial dysesthesias. He then hadhad an abrupt onset of left facial droop, left body weakness 6 hours prior to admission. He states that he was not weak. That he had no focal deficits. He was just hurting over his left hip and his left knee where he fell. He is not aware that he was having focal deficits according to his family. He is completely surprised when I tell him that. He said that by the time he got to the emergency room he was feeling fine and he only came here because he was worried. He felt disoriented, not right, and his left leg was not moving the way it was supposed to. He attributed the lack of movement to falling on the ground and hurting his hip. He lives with his girlfriend. Her son was visiting from [place] and drove him to the emergency room. He was evaluated by Dr. Ramon in the emergency room and blood pressure is 167/99. It is subsequently gone down to 147/92. He is afebrile, normotensive, oxygenating well on room air. His telemetry showed sinus rhythm, EKG shows sinus rhythm. His total NIH SS score is 0. He is alert, responsive, answering questions and performing commands correctly. No cranial nerve or motor deficit. As such all of his symptomatology has resolved by the time is gotten to the emergency room. CT of the head is a normal examination. CT angiogram of the head and neck are ordered and pending. - HOSPITAL COURSE Hospital Course: Patient was found for dizziness and facial droop, and loss of balance and fall in the home. Patient denies any injury or pain. all patient image studies including MRI of the brain, CT of the head, CTA of the head and neck, echo, EKG all are unremarkable. PT and OT evaluated for patient, and released the patient go home. Pt's symptoms were total resolved in the hospital. Patient has a history of alcohol abuse, patient still drinks alcohol daily. It is high possible when patient drink of alcohol and loss of his balance, and fall. Patient was educated to quit alcohol. - ALLERGIES Allergies/Adverse Reactions: Allergies Allergy/AdvReac Type Severity Reaction Status Date / Time No Known Drug Allergies Allergy Verified 01/10/19 07:36 - MEDICATIONS Home Medications: Ambulatory Orders Medication Instructions Recorded Confirmed Aspirin Chewable [[facility] Anderson 81 mg PO DAILY 01/02/20 01/03/20 Aspirin] Atorvastatin [Lipitor] 20 mg PO DAILY #30 tablet 01/03/20 Lisinopril [Prinivil] 10 mg PO DAILY 01/03/20 01/03/20 - PHYSICAL EXAM AT DISCHARGE General Appearance: positive: No acute distress, Alert. negative: Lethargic Eyes Bilateral: positive: Normal inspection, PERRL, No lid inflammation ENT: positive: ENT inspection nml, No signs of dehydration. negative: Purulent nasal drainage Neck: positive: Nml inspection, Thyroid nml, Trachea midline. negative: Thyromegaly, Tracheal deviation Respiratory: positive: Chest non-tender, No respiratory distress, Breath sounds nml. negative: Wheezes, Rales, Rhonchi Cardiovascular: positive: Regular rate & rhythm, No murmur. negative: Tachycardia, Bradycardia, Systolic murmur, Diastolic murmur Peripheral Pulses: positive: 2+ Abdomen: positive: Non-tender, Nml bowel sounds, No distention. negative: T enderness, Guarding, Rebound Back: positive: Nml inspection Skin: positive: Color nml, No rash, Warm, Dry. negative: Cyanosis, Diaphoresis, Pallor Extremities: positive: Non-tender, Full ROM, Nml appearance. negative: Calf tenderness Neurologic/Psychiatric: positive: Oriented x3, Motor nml, Sensation nml, Mood/affect nml. negative: Weakness, Sensory loss, Facial droop, Slurred/abnml speech, Depressed mood/affect - LABS Result Diagrams: 01/03/20 05:09 01/03/20 05:09 - FOLLOW UP Follow Up: your symptoms were resolved. your all image studies are unremarkable. your Cholesterol level is slight high, Lipitor is prescribed for you. You may followup with your PCP in 1-2 weeks, should your symptoms return or worsen, you may present ER or call 911 for help. - TIME SPENT Time Spent in Discharge (Minutes): 30
[2020-01-03 18:05] VITALS: BP 165/101
[2020-01-04 12:31] LABS: HEPATITIS A IGM NON-REACTIVE (NON-REACTIVE); HEPATITIS B SURFACE ANTIGEN NON-REACTIVE (NON-REACTIVE); HEPATITIS C ANTIBODY NON-REACTIVE (NON-REACTIVE)
== END 2020-01-03 14:55 | disposition home or self-care (01) ==
LOC: ED 20:29 → MS2 21:45
PROVIDERS: ADMIT Specialist; ATTEND Nurse Practitioner Gerontology
DX: G45.9 Transient cerebral ischemic attack, unspecified (principal); I10 Essential (primary) hypertension; S61.219A Laceration without foreign body of unspecified finger without damage to nail, initial encounter; W01.0XXA Fall on same level from slipping, tripping and stumbling without subsequent striking against object, initial encounter; Y92.512 Supermarket, store or market as the place of occurrence of the external cause; M25.552 Pain in left hip; M25.562 Pain in left knee; R53.1 Weakness; Z91.81 History of falling; M25.532 Pain in left wrist; R74.8 Abnormal levels of other serum enzymes; Z20.828 Contact with and (suspected) exposure to other viral communicable diseases
CPT/HCPCS: 36415; 70450; 70496; 70498; 70551; 76700; 80053; 80061; 80074; 81001; 82390; 82728; 83690; 85025; 85610; 85651; 85730; 86141; 87631; 93005; 93306; 96374; 97161; 99285; A9270; G0378; J2060; Q9967; 0202U; 81003; 83721; 87086

== ENCOUNTER 2020-02-01 22:02 | Emergency (ER) | payer MEDICARE ==
[2020-02-01 22:11] VITALS: BP 157/96
--- NOTE | 2020-02-01 22:21 | ED Physician Documentation ---
PD HPI FOCAL NEURO - Stated complaint Stated Complaint: FACIAL DROOPING, OFF BALLANCE - Chief complaint Chief Complaint: Neuro - History obtained from History obtained from: Patient, Friend - History of Present Illness Timing - onset: Today Timing - duration: Minutes (The patient states his girlfriend encouraged him to come as she felt he had a slight facial droop, but mostly concerned that he was walking off balance. No noted weakness of arms nor legs. He states he did fall over without LOC and struck right jewish on furniture.) Timing - details: Gradual onset (symptoms of feeling some off balance this evening variably), Waxing and waning Severity of deficit: Moderate Weakness: Face (mild left, but states he has felt that for couple weeks at times.). No: Arm, Leg Numbness: No: Face, Arm, Leg Associated symptoms: Headache (right frontal after falling), Fall, Head injury. No: Nausea / vomiting, Syncope, Chest pain, Neck pain Contributing factors: negative: Anticoagulated (on ASA daily), Atrial fibrillation Baseline status: positive: A&OX3, ambulatory, indep Similar symptoms before: Diagnosis (brief facial symptoms recently with hospital workup for TIA. No evidence for CVA.) Recently seen: Emergency Dept, Admitted Review of Systems Constitutional: denies: Fever Nose: denies: Rhinorrhea / runny nose, Congestion Throat: denies: Sore throat Cardiac: denies: Chest pain / pressure Respiratory: denies: Dyspnea, Cough GI: denies: Abdominal Pain, Nausea, Vomiting, Diarrhea Neurologic: reports: Headache (just this evening after fall). denies: Focal weakness (he says his girlfriend though he had mild facial droop at home.), Numbness, Difficulty speaking, Altered mental status, LOC PD PAST MEDICAL HISTORY - Past Medical History Cardiovascular: Hypertension, Coronary artery disease Respiratory: None Neuro: Other Endocrine/Autoimmune: None GI: None : None HEENT: None Psych: Depression, Anxiety Musculoskeletal: Osteoarthritis, Chronic back pain, Other Derm: None - Past Surgical History Past Surgical History: Yes General: Other - Present Medications Home Medications: Ambulatory Orders Medication Instructions Recorded Confirmed Aspirin Chewable [[facility] Anderson 81 mg PO DAILY 01/02/20 01/03/20 Aspirin] Atorvastatin [Lipitor] 20 mg PO DAILY #30 tablet 01/03/20 Lisinopril [Prinivil] 10 mg PO DAILY 01/03/20 01/03/20 - Allergies Allergies/Adverse Reactions: Allergies Allergy/AdvReac Type Severity Reaction Status Date / Time No Known Drug Allergies Allergy Verified 02/01/20 22:12 - Social History Does the pt smoke?: No Smoking Status: Never smoker Does the pt drink ETOH?: No Does the pt have substance abuse?: No - POLST Patient has POLST: No POLST Status: Full Code PD ED PE NORMAL - Vitals Vital signs reviewed: Yes - General General: Alert and oriented X 3, Well developed/nourished - HEENT HEENT: PERRL, EOMI, Moist mucous membranes, Pharynx benign, Other (right frontal and jewish area with mild local tenderness without deformity. 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, No motor deficit, No sensory deficit, Normal speech Eye Opening: Spontaneous Motor: Obeys Commands Verbal: Oriented GCS Score: 15 - Psych Psych: Normal mood, Normal affect NIHSS - Level of Consciousness Level of consciousness: (0) Alert, Keenly responsive LOC Questions: (0) Answers both Q's correct LOC Commands: (0) Performs both correctly - Gaze Best Gaze: (0) Normal - Visual Visual: (0) No loss - Facial Palsy Facial Palsy: (0) Normal, symmetrical movement - Motor Arms (both separate) Motor Arm (right): (0) No drift Motor Arm (left): (0) No drift - Motor Legs (both separate) Motor Leg (right): (0) No drift Motor Leg (left): (0) No drift - Limb Ataxia Limb Ataxia: (0) Absent - Sensory Sensory: (0) Normal - Best Language Best Language: (0) No aphasia - Dysarthria Dysarthria: (0) Normal - Extinction and Inattention (formally neg Extinction and inattention: (0) No abnormality - Total Score/Results Total Score/Result: 0 Results - Vitals Vitals: Vital Signs - 24 hr 02/01/20 22:07 Temperature 36.2 C L Heart Rate 86 Respiratory 16 Rate Blood Pressure 157/96 H O2 Saturation 96 Oxygen O2 Source Room air - Labs Labs: Laboratory Tests 02/01/20 02/01/20 02/01/20 22:43 22:43 22:43 WBC 5.6 RBC 4.33 L Hgb 14.5 Hct 42.0 MCV 97.0 H MCH 33.5 H MCHC 34.5 RDW 13.1 Plt Count 119 L MPV 10.2 Neut # (Auto) 2.6 Lymph # (Auto) 2.2 Sutter # (Auto) 0.7 Eos # (Auto) 0.1 Baso # (Auto) 0.1 Absolute Nucleated RBC 0.00 Nucleated RBC % 0.0 Sodium 141 Potassium 3.6 Chloride 102 Carbon Dioxide 23 Anion Gap 16.0 H BUN 12 Creatinine 0.7 Estimated GFR (MDRD) 111 Glucose 103 H Calcium 9.1 Magnesium 2.0 Total Bilirubin 0.7 AST 109 H ALT 86 H Alkaline Phosphatase 102 C-Reactive Protein < 1.0 Total Protein 7.9 Albumin 4.3 Globulin 3.6 Albumin/Globulin Ratio 1.2 Vitamin B12 739 Ethyl Alcohol 356.6 - Rads (name of study) head CT Radiology: Prelim report reviewed (no acute process; no ICH. ), See rad report PD MEDICAL DECISION MAKING - ED course Complexity details: reviewed old records (eval with CT-A head and neck, MRI brain, and ECHO on recent admission for possible TIA. I don't feel repeated testing is needed at this time. ), reviewed results (labs with elevated ETOH. Otherwise okay. Head CT shows no ICH from the fall. ), considered differential (no focal deficits here. I would think his feeling off balance could relate to elevated alcohol level. He had fallen, so CT head done to ensure no ICH. ), d/w patient Departure - Departure Disposition: 01 Home, Self Care Clinical Impression: Balance problem Fall from slip, trip, or stumble Qualifiers: Encounter type: initial encounter Qualified Code(s): W01.0XXA - Fall on same level from slipping, tripping and stumbling without subsequent striking against object, initial encounter Head contusion Qualifiers: Encounter type: initial encounter Contusion of head detail: scalp Qualified Code(s): S00.03XA - Contusion of scalp, initial encounter Alcohol intoxication Qualifiers: Complication of substance-induced condition: uncomplicated Qualified Code(s): F10.920 - Alcohol use, unspecified with intoxication, uncomplicated Condition: Stable Record reviewed to determine appropriate education?: Yes Instructions: ED Contusion Scalp, ED Alcohol Intoxication Follow-Up: Wojciech Cevallos DO [Primary Care Provider] - Comments: Your head CT does not show any signs of swelling or localized injury. Your basic blood count and electrolytes are normal. You may have had problems with your balance earlier and currently because of a very elevated alcohol level. I would suggest avoiding excess alcohol generally, and in particular if you are having problems with the balance. Continue with your current medications including the aspirin daily. Stay well- hydrated. Discharge Date/Time: 02/02/20 00:07
[2020-02-01 22:55] LABS: BASOPHILS # (AUTO) 0.1 10^3/uL (0.0-0.1); BASOPHILS % (AUTO) 1.3 %; EOSINOPHILS # (AUTO) 0.1 10^3/uL (0.0-0.7); HGB - HEMOGLOBIN 14.5 g/dL (14.0-18.0); LYMPHOCYTES # (AUTO) 2.2 10^3/uL (1.5-3.5); LYMPHOCYTES % (AUTO) 38.8 %; MEAN CORPUSCULAR HEMOGLOBIN 33.5 pg (27.0-31.0); MEAN CORPUSCULAR HGB CONC 34.5 g/dL (32.0-36.0); MEAN PLATELET VOLUME 10.2 fL (7.4-11.4); MONOCYTES # (AUTO) 0.7 10^3/uL (0.0-1.0); MONOCYTES % (AUTO) 11.7 %; NEUTROPHILS # (AUTO) 2.6 10^3/uL (1.5-6.6); PLT - PLATELET COUNT 119 10^3/uL (130-450); RED BLOOD COUNT 4.33 10^6/uL (4.70-6.10); RED CELL DISTRIBUTION WIDTH 13.1 % (12.0-15.0); WHITE BLOOD COUNT 5.6 x10^3/uL (4.8-10.8)
[2020-02-01 23:07] LABS: ALBUMIN 4.3 g/dL (3.2-5.5); ALBUMIN/GLOBULIN RATIO 1.2 (1.0-2.2); ALKALINE PHOSPHATASE 102 IU/L (42-121); ALT ALANINE AMINOTRANSFERASE 86 IU/L (10-60); AST ASPARTATE AMINOTRANSFERASE 109 IU/L (10-42); BILIRUBIN,TOTAL 0.7 mg/dL (0.2-1.0); BUN - BLOOD UREA NITROGEN 12 mg/dL (6-20); CALCIUM 9.1 mg/dL (8.5-10.3); CARBON DIOXIDE - CO2 23 mmol/L (21-32); CHLORIDE 102 mmol/L (101-111); CREATININE 0.7 mg/dL (0.6-1.2); GLUCOSE 103 mg/dL (70-100); SODIUM 141 mmol/L (135-145); TOTAL PROTEIN 7.9 g/dL (6.7-8.2)
[2020-02-01 23:08] LABS: CRP - C-REACTIVE PROTEIN < 1.0 mg/dL (0-1.0)
--- NOTE | 2020-02-02 08:07 | CT Report ---
PROCEDURE: HEAD WO INDICATIONS: fell struck head 2 hours ago TECHNIQUE: Noncontrast 4.5 mm thick angled axial sections acquired from the foramen magnum to the vertex. For r adiation dose reduction, the following was used: automated exposure control, adjustment of mA and/or kV according to patient size. COMPARISON: None. FINDINGS: Image quality: Excellent. CSF spaces: Basal cisterns are patent. No extra-axial fluid collections. Ventricles are normal in size and shape. Brain: No midline shift. No intracranial masses or hemorrhage. Joe-white matter interface is norm al. Mild global volume loss. Skull and face: Calvarium and visualized facial bones are intact, without suspicious lesions. Sinuses: Visualized sinuses and mastoids are clear. IMPRESSION: No acute intracranial abnormality Reviewed by: Vazquez Golden on 02/02/2020 8:05 AM [facility] Approved by: Vazquez Golden on 02/02/2020 8:05 AM [facility] Station ID: [id number]
== END 2020-02-02 00:07 | disposition home or self-care (01) ==
LOC: ED 22:02
DX: S00.03XA Contusion of scalp, initial encounter (principal); W01.190A Fall on same level from slipping, tripping and stumbling with subsequent striking against furniture, initial encounter; F10.920 Alcohol use, unspecified with intoxication, uncomplicated; R26.81 Unsteadiness on feet; I10 Essential (primary) hypertension; I25.10 Atherosclerotic heart disease of native coronary artery without angina pectoris; Z79.82 Long term (current) use of aspirin
CPT/HCPCS: 36415; 70450; 80053; 80320; 82607; 83735; 85025; 86140; 99284

== ENCOUNTER 2020-02-29 21:00 | Outpatient (CLI) | payer MEDICARE | END 2020-02-29 21:01 | disposition EMS.NT | LOC: EMS 21:00 | PROVIDERS: ATTEND Surgery | DX: R11.2 Nausea with vomiting, unspecified (principal) ==

== ENCOUNTER 2020-04-12 10:32 | Observation (INO) | payer MEDICARE ==
[2020-04-12] MEDS ORDERED: SODIUM CHLORIDE 0.9% 1,000 ML IV STA (10:52)
[2020-04-12] MEDS ORDERED: ONDANSETRON 4 MG/2 ML VIAL IVP STA (10:52)
[2020-04-12] MEDS ORDERED: PANTOPRAZOLE 40 MG VIAL IVP STA (11:14)
--- NOTE | 2020-04-12 11:14 | ED Physician Documentation ---
History of Present Illness - Stated complaint Stated Complaint: VOMITING/DEHYDRATED - Chief complaint Chief Complaint: Abd Pain - History obtained from History obtained from: Patient - History of Present Illness Timing: How many days ago (2) Pain level max: 0 Pain level now: 0 - Additonal information Additional information: 69 year old male states that he has been vomiting for 2 days, unable to keep anything down. States small amount of diarrhea today. states started after eating meatballs. No fevers. No chills. no antibiotic usage. no recent travel. Unsure of his home meds. Patient has a history of alcoholism, states no alcohol since Thursday. States he has been tapering off alcohol for a week or so. no blood in the emesis. Review of Systems Ten Systems: 10 systems reviewed and negative Constitutional: denies: Fever, Chills Throat: denies: Sore throat Cardiac: denies: Chest pain / pressure, Palpitations GI: reports: Nausea, Vomiting. denies: Hematemesis, Bloody / black stool Skin: denies: Rash Musculoskeletal: denies: Neck pain, Back pain Neurologic: denies: Headache PD PAST MEDICAL HISTORY - Past Medical History Cardiovascular: Hypertension, Coronary artery disease Respiratory: None Neuro: Other Endocrine/Autoimmune: None GI: None : None HEENT: None Psych: Depression, Anxiety Musculoskeletal: Osteoarthritis, Chronic back pain, Other Derm: None - Past Surgical History Past Surgical History: Yes General: Other - Present Medications Home Medications: Ambulatory Orders Medication Instructions Recorded Confirmed Aspirin Chewable [St Anderson 81 mg PO DAILY 01/02/20 04/12/20 Aspirin] Atorvastatin [Lipitor] 20 mg PO DAILY #30 tablet 01/03/20 04/12/20 Lisinopril [Prinivil] 5 mg PO DAILY 01/03/20 04/12/20 Tadalafil [Cialis] 5 mg PO DAILY 04/12/20 - Allergies Allergies/Adverse Reactions: Allergies Allergy/AdvReac Type Severity Reaction Status Date / Time No Known Drug Allergies Allergy Verified 04/12/20 10:49 - Social History Does the pt smoke?: No Smoking Status: Never smoker Does the pt drink ETOH?: No Does the pt have substance abuse?: No - Immunizations Immunizations are current?: No - POLST Patient has POLST: No POLST Status: Full Code PD ED PE NORMAL - Vitals Vital signs reviewed: Yes - General General: Alert and oriented X 3, No acute distress - HEENT HEENT: PERRL, Other (dry lips and tongue) - Neck Neck: Supple, no meningeal sign - Cardiac Cardiac: RRR, Strong equal pulses - Respiratory Respiratory: No respiratory distress, Clear bilaterally - Abdomen Abdomen: Normal bowel sounds, Soft, Non tender, Non distended - Derm Derm: Warm and dry, No rash - Extremities Extremities: No edema - Neuro Neuro: Alert and oriented X 3 - Psych Psych: Normal mood, Normal affect Results - Vitals Vitals: Vital Signs - 24 hr 04/12/20 04/12/20 04/12/20 10:47 10:49 11:55 Temperature 36.1 C L Heart Rate 121 H 107 H 103 H Respiratory 22 20 16 Rate Blood Pressure 129/78 132/92 H 137/89 H O2 Saturation 97 93 95 Oxygen O2 Source Room air - Labs Labs: Laboratory Tests 04/12/20 04/12/20 04/12/20 11:15 11:15 11:15 WBC 11.3 H RBC 4.50 L Hgb 15.0 Hct 46.2 MCV 102.7 H MCH 33.3 H MCHC 32.5 RDW 13.5 Plt Count 156 MPV 10.5 Neut # (Auto) 9.3 H Lymph # (Auto) 0.6 L Wells # (Auto) 1.3 H Eos # (Auto) 0.0 Baso # (Auto) 0.0 Absolute Nucleated RBC 0.00 Nucleated RBC % 0.0 Sodium 145 Potassium 5.8 H Chloride 96 L Carbon Dioxide 16 L Anion Gap 33.0 H BUN 42 H Creatinine 2.2 H Estimated GFR (MDRD) 30 L Glucose 202 H Calcium 10.1 Total Bilirubin 3.1 H AST 159 H ALT 117 H Alkaline Phosphatase 97 Total Protein 10.1 H Albumin 5.7 H Globulin 4.4 H Albumin/Globulin Ratio 1.3 Lipase 188 H Ethyl Alcohol < 5.0 - Rads (name of study) CT abd pelvis Radiology: Prelim report reviewed, EMP read contemporaneously, See rad report (Severe hepatic steatosis. Steatohepatitis would need clinical exclusion. ) RUQ US Radiology: Prelim report reviewed, EMP read contemporaneously, See rad report (Coarsely echogenic liver suggesting hepatic steatosis/diffuse hepatocellular disease.) PD MEDICAL DECISION MAKING - ED course Complexity details: reviewed results, re-evaluated patient, considered differential, d/w patient ED course: 69-year-old male presents to the emergency department with pain for the past 2 days. He has put himself in acute renal failure. Transaminitis.. History of alcoholism no acute findings on CT or ultrasound other than likely hepatic steatosis. Given IV fluids. He will need continued hydration in the hospital and to ensure that his electrolyte abnormalities as well as renal function improved. This might be secondary to alcohol withdrawal as well. Is not having any seizure-like activity or hallucinations. Discussed the case with Dr. Baig, hospitalist who accepts This document was made in part using voice recognition software. While efforts are made to proofread this document, sound alike and grammatical errors may occur. Departure - Departure Disposition: 66 [facility] DC/Xfer Clinical Impression: Hyperkalemia, Transaminitis, Dehydration Renal failure Qualifiers: Renal failure chronicity: acute Acute renal failure type: unspecified Qualified Code(s): N17.9 - Acute kidney failure, unspecified Vomiting Qualifiers: Vomiting type: unspecified Vomiting Intractability: non-intractable Nausea presence: with nausea Qualified Code(s): R11.2 - Nausea with vomiting, unspecified Alcohol withdrawal Qualifiers: Complication of substance-induced condition: uncomplicated Qualified Code(s): F10.230 - Alcohol dependence with withdrawal, uncomplicated Condition: Stable Discharge Date/Time: 04/12/20 13:33
[2020-04-12 11:22] LABS: BASOPHILS % (AUTO) 0.1 %; HCT - HEMATOCRIT 46.2 % (42.0-52.0); LYMPHOCYTES # (AUTO) 0.6 10^3/uL (1.5-3.5); LYMPHOCYTES % (AUTO) 5.2 %; MEAN CORPUSCULAR HEMOGLOBIN 33.3 pg (27.0-31.0); MEAN CORPUSCULAR HGB CONC 32.5 g/dL (32.0-36.0); MEAN CORPUSCULAR VOLUME 102.7 fL (80.0-94.0); MEAN PLATELET VOLUME 10.5 fL (7.4-11.4); MONOCYTES # (AUTO) 1.3 10^3/uL (0.0-1.0); MONOCYTES % (AUTO) 11.5 %; NEUTROPHILS # (AUTO) 9.3 10^3/uL (1.5-6.6); NEUTROPHILS % (AUTO) 82.5 %; PLT - PLATELET COUNT 156 10^3/uL (130-450); RED CELL DISTRIBUTION WIDTH 13.5 % (12.0-15.0); WHITE BLOOD COUNT 11.3 x10^3/uL (4.8-10.8)
[2020-04-12 11:37] LABS: ALBUMIN 5.7 g/dL (3.2-5.5); ALBUMIN/GLOBULIN RATIO 1.3 (1.0-2.2); BILIRUBIN,TOTAL 3.1 mg/dL (0.2-1.0); CALCIUM 10.1 mg/dL (8.5-10.3); CREATININE 2.2 mg/dL (0.6-1.2); POTASSIUM 5.8 mmol/L (3.5-5.0); TOTAL PROTEIN 10.1 g/dL (6.7-8.2)
--- NOTE | 2020-04-12 12:16 | CT Report ---
PROCEDURE: Abdomen/Pelvis WO INDICATIONS: Diffuse abdominal pain, nausea, vomiting TECHNIQUE: Noncontrast 5 mm thick sections acquired from the diaphragms to the symphysis. 5 mm coronal and sagi ttal reformats were then performed. For radiation dose reduction, the following was used: automated exposure control, adjustment of mA and/or kV according to patient size. COMPARISON: Abdominal ultrasound 01/03/2020 FINDINGS: Image quality: Excellent. ABDOMEN: Lung bases: Lung bases are clear. Heart size is normal. Solid organs: Severe hepatic steatosis. The liver is otherwise unremarkable. Normal size and appearan ce of the spleen. The gallbladder is normal. Unenhanced pancreas unremarkable. No adrenal nodules. K idneys are normal in size, without hydronephrosis or nephrolithiasis. Peritoneum and bowel: Small hiatal hernia. No abnormally dilated or thickened loops of bowel. No michelle e air or free fluid. No pericolonic or mesenteric inflammatory change. Nodes and vessels: No retroperitoneal or mesenteric adenopathy by size criteria. Aorta and inferior vena cava are normal in caliber. Miscellaneous: No ventral hernias. PELVIS: Genitourinary: Bladder wall thickness is normal. Mildly enlarged prostate. No threshold enlarged pe lvic or inguinal lymph nodes. Miscellaneous: No inguinal hernia or free fluid. Bones: No suspicious bony lesions. No vertebral body compression fractures. IMPRESSION: No findings to explain acute abdominal pain. Severe hepatic steatosis. Steatohepatitis would need clinical exclusion. Reviewed by: Barrington Mejía MD on 04/12/2020 12:14 PM PST Approved by: Barrington Mejía MD on 04/12/2020 12:14 PM PST Station ID: [id number]
[2020-04-12] MEDS ORDERED: ELECTROLYTE-A SOLUTION 1,000 ML IV STA (12:56)
[2020-04-12] MEDS ORDERED: ELECTROLYTE-A SOLUTION 1,000 ML IV ONE (12:56)
[2020-04-12] MEDS ORDERED: ACETAMINOPHEN 325 MG TABLET PO PRN (13:09)
[2020-04-12] MEDS ORDERED: ONDANSETRON 4 MG/2 ML VIAL IVP PRN (13:09)
[2020-04-12] MEDS ORDERED: SODIUM CHLORIDE FLUSH 0.9% 10 ML SYRINGE IVP PRN (13:09)
--- NOTE | 2020-04-12 13:14 | Ultrasound Report ---
PROCEDURE: Abdomen Limited INDICATIONS: elevated LFT TECHNIQUE: Real-time focused scanning was performed of the abdomen, with image documentation. COMPARISON: CT abdomen pelvis dated same day. FINDINGS: Liver measures 15.8 cm and is diffusely echogenic. There is nodular appearance to the patrick in of the left lobe. No cholelithiasis. No gallbladder wall thickening. No pericholecystic fluid or s onographic Glover sign. No bile duct dilatation identified. The pancreas is diffusely echogenic other goel unremarkable. Right kidney measures 10.4 cm and is unremarkable. Aorta and IVC patent. IMPRESSION: Coarsely echogenic liver suggesting hepatic steatosis/diffuse hepatocellular disease. Please correlat e with LFTs. Reviewed by: Usman Blum MD on 04/12/2020 1:13 PM PST Approved by: Usman Blum MD on 04/12/2020 1:13 PM PST Station ID: [id number]
[2020-04-12] MEDS ORDERED: LORazepam 2 MG/ML VIAL IVP PRN (13:15)
[2020-04-12 13:31] LABS: GLUCOSE, URINE (UA) NEGATIVE (NEGATIVE); KETONES,URINE (UA) >=80 mg/dL (NEGATIVE); LEUKOCYTE ESTERASE, URINE NEGATIVE (NEGATIVE); NITRITE,URINE NEGATIVE (NEGATIVE); OCCULT BLOOD,URINE LARGE (NEGATIVE); PH,URINE 5.5 PH (5.0-7.5); PROTEIN,URINE 100 mg/dL (NEGATIVE); UROBILINOGEN,URINE 0.2 (NORMAL) E.U./dL (NORMAL)
[2020-04-12] MEDS ORDERED: SODIUM POLYSTYRENE SULFONATE 15 GM/60 ML BOTTLE PO ONE (13:33)
[2020-04-12 13:38] LABS: INR 1.2 (0.8-1.2); PT - PROTHROMBIN TIME 13.6 secs (9.9-12.6)
[2020-04-12 13:40] LABS: BILIRUBIN,URINE NEGATIVE (NEGATIVE); CLARITY,URINE CLEAR (CLEAR); ICTOTEST,URINE NEGATIVE
[2020-04-12 13:55] LABS: RBC,URINE 0-5 /HPF (0-5); SQUAMOUS EPITHELIAL CELL,UR RARE Squamous (<= Few); WBC,URINE 0-3 /HPF (0-3)
[2020-04-12 13:56] LABS: BACTERIA,URINE Few /HPF (None Seen)
[2020-04-12] MEDS ORDERED: SODIUM CHLORIDE 0.9% 1,000 ML IV SCH (14:00)
--- NOTE | 2020-04-12 14:04 | HISTORY & PHYSICAL EXAMINATION ---
Chief Complaint - Chief Complaint Chief Complaint: nausea and vomiting History of Present Illness - Admitted From Admitted From:: ER - History Obtained From Records Reviewed: [facility] History obtained from: pt Exam Limitations: no - History of Present Illness HPI Comment/Other: This zenaida 69-year old male With a past medical history significant for alcoholism, chronic elevated liver enzyme, TIA, hypertension, CAD, depression anxiety, chronic back pain, osteoarthritis, Who present to ER complain nausea, vomiting, diarrhea, and unable to keep anything down since Thursday. Pt report on this week Thursday after he bought and ate meatballs, two hours later he started to have nausea, vomiting, then he had waterily-diarrhea. He report his last alcohol drinking was Thursday, he drunk two once of alcohol " I bought couple bottle of alcohol, I put into refrigerate, I still did not drinking yet, my girl friend will be very surprised, the problem is my girlfriend started to smoke cigarette." pt denies abdominal pain or cramping. He denies fever, chill, chest pain, cough, shortness of breath. Routine laboratory test show elevated potassium 5.8, anion gap 33, BUN 42, creatinine 2.2, Glucose 202, total bilirubin 3.1, AST 159, ALT 117,Lipase 188, WBC 11.3, hemoglobin 15. Ultrasound of and CT of abdomen and pelvis show Severe hepatic steatosis. Discussed the care goal with the patient, clearly patient choose DNR. History - Past Medical History Cardiovascular: reports: Hypertension, Coronary artery disease Respiratory: reports: None Neuro: reports: Other Endocrine/Autoimmune: reports: None GI: reports: None : reports: None HEENT: reports: None Psych: reports: Depression, Anxiety Musculoskeletal: reports: Osteoarthritis, Chronic back pain, Other Derm: reports: None - Past Surgical History General: reports: Other - Family & Social History Family History Comment/Other: Mom at age 73 of emphysema and was a ferocious cigarette smoker. Dad at age 67 of metastatic lung cancer and was also a smoker. 1 sister is 76 and healthy. One daughter has been smoking since the age of 14 and he worries about her getting emphysema. But no hyp ertension, diabetes, cancer, heart attack Living Situation: With spouse/s.o. Social History Notes: Born and raised in the [facility]. 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 Came to [facility] approximately 10 years ago with his girlfriend. She is born and raised in [place], and came back to take care of her mom. They moved in to her mom's house, and took care of her until she . He still lives with his girlfriend. He never smoked cigarettes. 50 years ago, in the 70s he did speed a couple of times but he is never done heroin, LSD, cocaine. He does have a history of alcohol abuse. He is drinking up to half a pint of vodka a day sometimes. Started cutting back 5 years ago. Right now he is doing about a beer a day. once before. . His girlfriend is Yvonne Morgan. He regards her as his [employer]. I am also allowed to speak to his daughter, Saba Montelongo if need be. - Substance History Use: Uses substance without health or social issues: Alcohol - POLST Patient has POLST: No POLST Status: Full Code Meds/Allgy - Home Medications Home Medications: Ambulatory Orders Medication Instructions Recorded Confirmed Aspirin Chewable [[place] Anderson 81 mg PO DAILY 01/02/20 04/12/20 Aspirin] Atorvastatin [Lipitor] 20 mg PO DAILY #30 tablet 01/03/20 04/12/20 Lisinopril [Prinivil] 5 mg PO DAILY 01/03/20 04/12/20 Tadalafil [Cialis] 5 mg PO DAILY 04/12/20 - Allergies Allergies/Adverse Reactions: Allergies Allergy/AdvReac Type Severity Reaction Status Date / Time No Known Drug Allergies Allergy Verified 04/12/20 10:49 Review of Systems - Constitutional Constitutional: denies: Fatigue, Fever, Chills, Malaise, Weakness, Poor appetite - Eyes Eyes: denies: Pain, Blurred vision, Field loss, Vision loss - Ears, Nose & Throat Ears, Nose & Throat: denies: Ear pain, Vertigo, Nosebleeds, Bleeding gums - Cardiovascular Cariovascular: denies: Irregular heart rate, Palpitations, Chest pain, Edema, Lightheadedness, Syncope, Exertional dyspnea - Respiratory Respiratory: denies: Cough, Sputum production, Wheezing, Snoring, Hemoptysis, Orthopnea, SOB at rest, SOB with exertion - Gastrointestinal Gastrointestinal: reports: Diarrhea, Nausea, Vomiting, Bile emesis. denies: Abdominal pain, Constipation, Rectal bleeding, Black stools, Bloody stools, Fl[place]io blood emesis - Genitourinary Genitourinary: denies: Dysuria, Urgency, Incontinence - Musculoskeletal Musculoskeletal: denies: Muscle pain, Muscle aches, Limited range of motion - Integumentary Integumentary: denies: Rash, Lesions, Lumps - Neurological Neurological: denies: General weakness, Focal weakness, Headache, Dizziness, Numbness, Pre-existing deficit, Abnormal gait, Seizures, Incoordination, Slurred speech - Psychiatric Psychiatric: denies: Depression, Suicidal, Delusions - Endocrine Endocrine: denies: Polyuria, Polydypsia, Polyphagia - Hematologic/Lymphatic Hematologic/Lymphatic: denies: Anemia, Petechiae, Blood clots Prior Level of Functionality: Patient is independent in the home Exam - Vital Signs Vital Signs: Vital Signs x48h Temp Pulse Resp BP Pulse Ox 04/12/20 13:12 104 H 11 L 100 04/12/20 11:55 103 H 16 137/89 H 95 04/12/20 10:49 107 H 20 132/92 H 93 04/12/20 10:47 36.1 C L 121 H 22 129/78 97 - Physical Exam General Appearance: positive: No acute distress, Alert. negative: Lethargic Eyes Bilateral: positive: Normal inspection, PERRL, No lid inflammation ENT: positive: ENT inspection nml, No signs of dehydration. negative: Purulent nasal drainage Neck: positive: Nml inspection, No JVD, Trachea midline. negative: Thyromegaly, Tracheal deviation Respiratory: positive: Chest non-tender, No respiratory distress, Breath sounds nml. negative: Wheezes, Rales, Rhonchi Cardiovascular: positive: Regular rate & rhythm, No murmur. negative: Tachycardia, Bradycardia, Systolic murmur, Diastolic murmur Peripheral Pulses: positive: 2+ Abdomen: positive: Non-tender, Nml bowel sounds, No distention. negative: Tenderness, Guarding, Rebound Back: positive: Nml inspection Skin: negative: Color nml, Warm, Dry, Cyanosis, Diaphoresis, Pallor Extremities: positive: Non-tender, Full ROM, Nml appearance. negative: Calf tenderness Neurologic/Psychiatric: positive: Oriented x3, Motor nml, Sensation nml, Mood/affect nml. negative: Weakness, Sensory loss, Facial droop, Slurred/abnml speech, Depressed mood/affect Conclusion/Plan - Problem List (1) Nausea vomiting and diarrhea Conclusion/Plan: Patient present nausea, vomiting, diarrhea. per patient report, it is likely caused by food poisoning. We will give patient antiemesis as needed, intravenous IV fluids, assistant laboratory director, check C. difficile, culture stool, ova and parasite, giardia, gastric norovirus PCR check. start clear diet, advanced as tolerated. (2) Food poisoning Conclusion/Plan: Patient reported after he ate meatballs 2 hours, he started to have nausea, vomiting and diarrhea. Now he denies abdominal pain or cramping. we check and culture stool, start IVF and clear diet for pt, Advance diet as tolerated (3) CAT (acute kidney injury) Conclusion/Plan: Patient creatinine is 2.2 now, patient has a baseline 0.7, It is likely pt's nausea, vomiting and Diarrhea, and severe dehydration. We will intravenous IV fluids for patient, and assistant laboratory director, avoid nephrotoxins. (4) Hyperkalemia Conclusion/Plan: Patient had a potassium 5.8, Is likely from patient's severe dehydration and kidney injury, We will hydration patient, recheck potassium level. Patient denies any chest pain, palpitation. (5) Alcoholism Conclusion/Plan: Patient has a long history of alcoholism. He reported his last drinking is this Thursday, Now patient has no withdrawal symptoms. We will give the patient , vitamin B1, Ativan as needed, add CIWA protocol. (6) Transaminitis Conclusion/Plan: Patient has chronically elevated liver enzyme, patient has long hx of alcoholism, We will continue lab monitor, Strongly advised the patient quitted alcohol. (7) Hypertension Conclusion/Plan: Patient had stable blood pressure, Patient take lisinopril in the home. We will hold lisinopril because hyperkalemia. Qualifiers: Hypertension type: essential hypertension Qualified Code(s): I10 - Essential (primary) hypertension - Lab Results Fish Bones: 04/12/20 11:15 04/12/20 11:15 Core Measures - Anticipated LOS I expect patient to be DC'd or transferred within 96 hours.: Yes - DVT/VTE - Prophylaxis VTE/DVT Device ordered at admit?: Yes VTE/DVT Prophylaxis med ordered at admit?: Yes
[2020-04-12] MEDS: PRENATAL VITAMIN TABLET PO SCH (14:19)
[2020-04-12] MEDS: THIAMINE 100 MG TABLET PO SCH (14:19)
[2020-04-12 14:28] LABS: B. PARAPERTUSSIS- RESP PCR PAN NOT DETECTED; B. PERTUSSIS- RESP PCR PANEL NOT DETECTED; C. PNEUMONIAE- RESP PCR PANEL NOT DETECTED; CORONAVIRUS 229E-RESP PCR NOT DETECTED; CORONAVIRUS HKU1-RESP PCR NOT DETECTED; CORONAVIRUS NL63-RESP PCR NOT DETECTED; CORONAVIRUS OC43-RESP PCR NOT DETECTED; HUMAN METAPNEUMOVIRUS NOT DETECTED; INFLUENZA A- RESP PCR PANEL NOT DETECTED; INFLUENZA B - RESP PCR PANEL NOT DETECTED; M. PNEUMONIAE- RESP PCR PANEL NOT DETECTED; PARAINFLUENZA VIRUS 1 NOT DETECTED; PARAINFLUENZA VIRUS 2 NOT DETECTED; PARAINFLUENZA VIRUS 3 NOT DETECTED; PARAINFLUENZA VIRUS 4 NOT DETECTED; RHINOVIRUS/ENTEROVIRUS NOT DETECTED; RSV- RESP PCR PANEL NOT DETECTED; SARS-CoV-2 -RESP PCR PANEL NOT DETECTED
[2020-04-12] MEDS: SODIUM CHLORIDE FLUSH 0.9% 10 ML SYRINGE IVP SCH (18:02)
[2020-04-12] MEDS: SODIUM CHLORIDE 0.9% 1,000 ML IV SCH ×2 (18:02→20:25)
[2020-04-12 20:03] LABS: ESTIMATED AVERAGE GLUCOSE 108 mg/dL (70-100); HEMOGLOBIN A1c% 5.4 % (4.27-6.07)
[2020-04-12] MEDS ORDERED: HEPARIN 5,000 UNIT/ML VIAL SUBQ SCH (21:00)
[2020-04-13] MEDS: SODIUM CHLORIDE FLUSH 0.9% 10 ML SYRINGE IVP SCH ×2 (00:13→08:48)
[2020-04-13] MEDS: SODIUM CHLORIDE 0.9% 1,000 ML IV SCH ×2 (02:41→08:58)
[2020-04-13 04:52] LABS: BASOPHILS % (AUTO) 0.1 %; EOSINOPHILS # (AUTO) 0.1 10^3/uL (0.0-0.7); EOSINOPHILS % (AUTO) 1.8 %; HCT - HEMATOCRIT 33.2 % (42.0-52.0); HGB - HEMOGLOBIN 11.1 g/dL (14.0-18.0); LYMPHOCYTES % (AUTO) 13.3 %; MEAN CORPUSCULAR HEMOGLOBIN 33.8 pg (27.0-31.0); MEAN CORPUSCULAR HGB CONC 33.4 g/dL (32.0-36.0); MEAN CORPUSCULAR VOLUME 101.2 fL (80.0-94.0); MEAN PLATELET VOLUME 10.7 fL (7.4-11.4); MONOCYTES # (AUTO) 0.7 10^3/uL (0.0-1.0); MONOCYTES % (AUTO) 9.6 %; NEUTROPHILS # (AUTO) 5.7 10^3/uL (1.5-6.6); NEUTROPHILS % (AUTO) 74.7 %; PLT - PLATELET COUNT 81 10^3/uL (130-450); RED BLOOD COUNT 3.28 10^6/uL (4.70-6.10); RED CELL DISTRIBUTION WIDTH 13.6 % (12.0-15.0); WHITE BLOOD COUNT 7.6 x10^3/uL (4.8-10.8)
[2020-04-13 05:03] LABS: ALBUMIN 3.8 g/dL (3.2-5.5); ALBUMIN/GLOBULIN RATIO 1.3 (1.0-2.2); BILIRUBIN,TOTAL 2.3 mg/dL (0.2-1.0); CALCIUM 7.5 mg/dL (8.5-10.3); PHOSPHORUS 1.9 mg/dL (2.5-4.6); POTASSIUM 3.9 mmol/L (3.5-5.0); TOTAL PROTEIN 6.7 g/dL (6.7-8.2)
[2020-04-13] MEDS ORDERED: PANTOPRAZOLE 40 MG TABLET PO SCH (07:00)
[2020-04-13] MEDS: THIAMINE 100 MG TABLET PO SCH (08:47)
[2020-04-13] MEDS: PRENATAL VITAMIN TABLET PO SCH (08:47)
[2020-04-13] MEDS ORDERED: NEUTRA-PHOS 250 MG TABLET PO SCH (10:38)
--- NOTE | 2020-04-13 10:45 | Discharge Plan ---
Discharge Plan Problem Reviewed?: Yes Disposition: Home, Self Care Condition: Stable Prescriptions: Pnv No.95/Ferrous Fum/Folic AC [ Tablet] 1 each PO DAILY #30 tablet Thiamine [Vitamin B-1] 100 mg PO DAILY #30 tablet Diet: Regular Activity Restrictions: Activity as Tolerated Shower Restrictions: No (fall precaution) Instruction Topics: Dehydration, ED Food Poison Or Gastroenteritis, Alcoholism Get Help Health Concerns: dehydration, food poisoning, alcoholism Plan of Treatment: carefully selection of your food and cooked the food well. keep you hydration. Quit your alcohol. Care Goals: stabilization and improvement/resolve of your medical conditions Assessment: discussed care plan with you, answered your questions, you understood. Additional Instructions or Follow Up instructions: you may followup with your PCP in 1-2 weeks. Should your symptoms return or worsen, you may present ER or call 911 for help. No Smoking: If you smoke, Please STOP! Call for help. Follow-up with: Wojciech Cevallos DO [Primary Care Provider] -
--- NOTE | 2020-04-13 10:54 | DISCHARGE SUMMARY ---
Discharge Summary Admit Date: 04/12/20 Discharge Date: 04/13/20 Discharging Provider: Rusty Lee Primary Care Provider: Dr. Wojciech Colin Condition at Discharge: Stable Discharge Disposition: 01 Home, Self Care Discharge Facility Name: home - DIAGNOSES Discharge Diagnoses with Status of Each Condition: (1) Nausea vomiting and diarrhea resolved. Patient tolerated diet, patient has no nausea, vomiting, diarrhe. pt want to go home as early as possible. Pt is d/c in the morning. (2) Food poisoning discussed pt for prevention of food poisoning. pt understood (3) CAT (acute kidney injury) resolved. creatinine is 1. advise pt keep hydration at home (4) Hyperkalemia resolved (5) Alcoholism strongly advise pt quit alcohol. pt state he will. , vitamin B1 are prescribed for pt (6) alcoholic Transaminitis improved. strongly advise pt quit alcohol. pt state he will. (7) Hypertension stable. - HPI History of Present Illness: This zenaida 69-year old male With a past medical history significant for alcoholism, chronic elevated liver enzyme, TIA, hypertension, CAD, depression anxiety, chronic back pain, osteoarthritis, Who present to ER complain nausea, vomiting, diarrhea, and unable to keep anything down since Thursday. Pt report on this week Thursday after he bought and ate meatballs, two hours later he started to have nausea, vomiting, then he had waterily-diarrhea. He report his last alcohol drinking was Thursday, he drunk two once of alcohol " I bought couple bottle of alcohol, I put into refrigerate, I still did not drinking yet, my girl friend will be very surprised, the problem is my girlfriend started to smoke c igarette." pt denies abdominal pain or cramping. He denies fever, chill, chest pain, cough, shortness of breath. Routine laboratory test show elevated potassium 5.8, anion gap 33, BUN 42, creatinine 2.2, Glucose 202, total bilirubin 3.1, AST 159, ALT 117,Lipase 188, WBC 11.3, hemoglobin 15. Ultrasound of and CT of abdomen and pelvis show Severe hepatic steatosis. Discussed the care goal with the patient, clearly patient choose DNR. - HOSPITAL COURSE Hospital Course: pt was admitted for complain of nausea, vomiting, diarrhea, and unable to keep anything down. pt was found to have severe dehydration with significant elevated creatinine and hyperkalemia. pt likely has foot poisoning after he ate meatballs. pt has bowel rest, IVF, pt's symptoms resolve. pt tolerate diet without nausea, vomiting or diarrhea or abdominal pain. pt's creatinine became n ormal, and hyperkalemia was resolved. - ALLERGIES Allergies/Adverse Reactions: Allergies Allergy/AdvReac Type Severity Reaction Status Date / Time No Known Drug Allergies Allergy Verified 04/12/20 10:49 - MEDICATIONS Home Medications: Ambulatory Orders Medication Instructions Recorded Confirmed Aspirin Chewable [St Anderson 81 mg PO DAILY 01/02/20 04/12/20 Aspirin] Atorvastatin [Lipitor] 20 mg PO DAILY #30 tablet 01/03/20 04/12/20 Lisinopril [Prinivil] 5 mg PO DAILY 01/03/20 04/12/20 Pnv No.95/Ferrous Fum/Folic AC 1 each PO DAILY #30 tablet 04/13/20 [ Tablet] Thiamine [Vitamin B-1] 100 mg PO DAILY #30 tablet 04/13/20 - PHYSICAL EXAM AT DISCHARGE General Appearance: positive: No acute distress, Alert. negative: Lethargic Eyes Bilateral: positive: Normal inspection, PERRL, No lid inflammation ENT: positive: ENT inspection nml, No signs of dehydration. negative: Purulent nasal drainage Neck: positive: Nml inspection, Trachea midline. negative: Thyromegaly, Stiff neck, Tracheal deviation Respiratory: positive: Chest non-tender, No respiratory distress. negative: Wheezes, Rales Cardiovascular: positive: Regular rate & rhythm, No murmur. negative: Tachycardia, Bradycardia, Systolic murmur, Diastolic murmur Peripheral Pulses: positive: 2+ Abdomen: positive: Non-tender, Nml bowel sounds, No distention. negative: Tenderness, Guarding, Rebound Back: positive: Nml inspection. negative: CVA tenderness (R), CVA tenderness (L) Skin: positive: Color nml, Warm, Dry. negative: Cyanosis, Diaphoresis, Pallor Extremities: positive: Non-tender, Full ROM, Nml appearance. negative: Calf tenderness Neurologic/Psychiatric: positive: Oriented x3, Motor nml, Sensation nml, Mood/affect nml. negative: Weakness, Sensory loss, Facial droop, Slurred/abnml speech, Depressed mood/affect - LABS Result Diagrams: 04/13/20 04:20 04/13/20 04:20 - FOLLOW UP Follow Up: you may carefully selection of your food and cooked the food well, keep you hydration, Quit your alcohol. you may followup with your PCP in 1-2 weeks. Should your symptoms return or worsen, you may present ER or call 911 for help. - TIME SPENT Time Spent in Discharge (Minutes): 30
[2020-04-13 11:20] VITALS: BP 129/86
== END 2020-04-13 11:50 | disposition home or self-care (01) ==
LOC: ED 10:32 → MS2 13:09
PROVIDERS: ADMIT Nurse Practitioner Gerontology; ATTEND Nurse Practitioner Gerontology
DX: N17.9 Acute kidney failure, unspecified (principal); E87.5 Hyperkalemia; A05.9 Bacterial foodborne intoxication, unspecified; F10.20 Alcohol dependence, uncomplicated; K76.0 Fatty (change of) liver, not elsewhere classified; R74.01 Elevation of levels of liver transaminase levels; E86.0 Dehydration; I10 Essential (primary) hypertension; I25.10 Atherosclerotic heart disease of native coronary artery without angina pectoris; F32.9 Major depressive disorder, single episode, unspecified; F41.9 Anxiety disorder, unspecified; G89.29 Other chronic pain; M54.9 Dorsalgia, unspecified; M19.90 Unspecified osteoarthritis, unspecified site; Z20.822 Contact with and (suspected) exposure to COVID-19; Z79.82 Long term (current) use of aspirin; Z79.899 Other long term (current) drug therapy; Z86.73 Personal history of transient ischemic attack (TIA), and cerebral infarction without residual deficits; Z66 Do not resuscitate
CPT/HCPCS: 36415; 74176; 76705; 80053; 81001; 83036; 83690; 83735; 84100; 84132; 85025; 85610; 87631; 93005; 96361; 96372; 96374; 96375; 99285; A9270; G0378; G0480; 0202U; 80320; 81003; 87086; 87177; 87209; 87329; 87798

== ENCOUNTER 2020-07-26 19:39 | Observation (INO) | payer MEDICAID, MEDICARE ==
[2020-07-26] MEDS ORDERED: THIAMINE INJ 100 MG in SODIUM CHLORIDE 0.9% 50 ML IV STA (19:47)
[2020-07-26] MEDS ORDERED: SODIUM CHLORIDE 0.9% 1,000 ML IV STA (19:47)
[2020-07-26] MEDS ORDERED: LORazepam 2 MG/ML VIAL IVP STA (19:47)
[2020-07-26] MEDS ORDERED: ONDANSETRON 4 MG/2 ML VIAL IVP STA (19:47)
--- NOTE | 2020-07-26 19:50 | ED Physician Documentation ---
History of Present Illness - Stated complaint Stated Complaint: VOMITING,WEAKNESS - History obtained from History obtained from: Patient - Additonal information Additional information: He quit drinking alcohol 2 days ago. He is planning to go into inpatient detox on Thursday. Since yesterday he has had profound nausea and vomiting, cannot sleep. He is very uncomfortable. Cannot keep anything down. He feels shaky. Denies hallucinations or seizure. Review of Systems Ten Systems: 10 systems reviewed and negative Constitutional: reports: Sweats. denies: Fever Nose: reports: Reviewed and negative Throat: reports: Reviewed and negative Cardiac: reports: Reviewed and negative PD PAST MEDICAL HISTORY - Past Medical History Cardiovascular: Hypertension, Coronary artery disease Respiratory: None Neuro: Other Endocrine/Autoimmune: None GI: None : None HEENT: None Psych: Depression, Anxiety Musculoskeletal: Osteoarthritis, Chronic back pain, Other Derm: None - Past Surgical History Past Surgical History: Yes General: Other - Present Medications Home Medications: Ambulatory Orders Medication Instructions Recorded Confirmed Aspirin Chewable [St Anderson 81 mg PO DAILY 01/02/20 07/26/20 Aspirin] Atorvastatin [Lipitor] 20 mg PO DAILY #30 tablet 01/03/20 07/26/20 lisinopriL [Prinivil] 5 mg PO DAILY 01/03/20 07/26/20 Pnv No.95/Ferrous Fum/Folic AC 1 each PO DAILY #30 tablet 04/13/20 07/26/20 [ Tablet] Thiamine [Vitamin B-1] 100 mg PO DAILY #30 tablet 04/13/20 07/26/20 - Allergies Allergies/Adverse Reactions: Allergies Allergy/AdvReac Type Severity Reaction Status Date / Time No Known Drug Allergies Allergy Verified 04/12/20 10:49 - Social History Does the pt smoke?: No Smoking Status: Never smoker Does the pt drink ETOH?: No Does the pt have substance abuse?: No - Immunizations Immunizations are current?: No - POLST Patient has POLST: No POLST Status: Full Code PD ED PE NORMAL - Vitals Vital signs reviewed: Yes (Tachycardic and hypertensive) - General General: Other (He is hypertensive, tachycardic and shaky alert and oriented though) - HEENT HEENT: PERRL, EOMI, Other (Tongue shakiness is present, no scleral icterus) - Neck Neck: Supple, no meningeal sign, No bony TTP - Cardiac Cardiac: Other (Tachycardic but regular without murmur) - Respiratory Respiratory: No respiratory distress, Clear bilaterally - Abdomen Abdomen: Normal bowel sounds, Soft, Non tender - Back Back: No CVA TTP, No spinal TTP - Derm Derm: Normal color, Warm and dry - Extremities Extremities: No edema, No calf tenderness / cord - Neuro Neuro: Alert and oriented X 3, Normal speech Results - Vitals Vitals: Vital Signs - 24 hr 07/26/20 07/26/20 07/26/20 19:40 20:00 20:07 Temperature 36.2 C L Heart Rate 135 H 117 H 108 H Respiratory 20 16 15 Rate Blood Pressure 200/123 H 179/113 H 168/105 H O2 Saturation 96 97 100 07/26/20 20:24 Temperature Heart Rate 116 H Respiratory 16 Rate Blood Pressure O2 Saturation 98 Oxygen O2 Source Room air - Labs Labs: Laboratory Tests 07/26/20 07/26/20 07/26/20 19:53 19:53 19:53 WBC 10.0 RBC 4.80 Hgb 15.9 Hct 48.8 MCV 101.7 H MCH 33.1 H MCHC 32.6 RDW 12.4 Plt Count 137 MPV 10.5 Neut # (Auto) 9.0 H Lymph # (Auto) 0.6 L [place] # (Auto) 0.4 Eos # (Auto) 0.0 Baso # (Auto) 0.0 Absolute Nucleated RBC 0.00 Nucleated RBC % 0.0 PT 12.6 INR 1.1 VBG pH VBG pCO2 VBG pO2 VBG HCO3 VBG Total CO2 VBG O2 Saturation VBG Base Excess Sodium 137 Potassium 4.8 Chloride 95 L Carbon Dioxide 10 L* Anion Gap 32.0 H BUN 20 Creatinine 1.4 H Estimated GFR (MDRD) 50 L Glucose 208 H Calcium 9.1 Phosphorus 6.6 H Magnesium 2.0 Total Bilirubin 3.1 H AST 113 H ALT 91 H Alkaline Phosphatase 97 Total Protein 9.4 H Albumin 5.4 Globulin 4.0 Albumin/Globulin Ratio 1.4 Lipase 58 H Ethyl Alcohol < 5.0 Serum Ketones LARGE H 07/26/20 19:53 WBC RBC Hgb Hct MCV MCH MCHC RDW Plt Count MPV Neut # (Auto) Lymph # (Auto) [place] # (Auto) Eos # (Auto) Baso # (Auto) Absolute Nucleated RBC Nucleated RBC % PT INR VBG pH 7.173 L VBG pCO2 27.8 L VBG pO2 89.5 H VBG HCO3 10.0 L VBG Total CO2 10.8 L VBG O2 Saturation 95.5 H VBG Base Excess -16.8 L Sodium Potassium Chloride Carbon Dioxide Anion Gap BUN Creatinine Estimated GFR (MDRD) Glucose Calcium Phosphorus Magnesium Total Bilirubin AST ALT Alkaline Phosphatase Total Protein Albumin Globulin Albumin/Globulin Ratio Lipase Ethyl Alcohol Serum Ketones PD MEDICAL DECISION MAKING - ED course ED course: This gentleman presents with alcohol withdrawal manifested by shakiness, tachycardia, hypertension. Also nausea. Mental status is normal, no encephalopathy. He was administered IV fluids, Zofran, Ativan, and thiamine. Work-up demonstrates evidence of alcoholic ketoacidosis with a venous pH of 7.17, bicarb of 10, and large serum ketones. He was feeling better after the above interventions but given the severity of his acidosis will be admitted for further evaluation and treatment and spoke with Dr. Lambert, our hospitalist for same at 8:30 PM. Departure - Departure Disposition: ED Place in Observation Clinical Impression: Alcoholic ketoacidosis Condition: Serious
[2020-07-26] MEDS ORDERED: THIAMINE 100 MG/1 ML 2 ML MDV ONE (19:52)
[2020-07-26 20:01] LABS: BASOPHILS % (AUTO) 0.4 %; HCT - HEMATOCRIT 48.8 % (42.0-52.0); HGB - HEMOGLOBIN 15.9 g/dL (14.0-18.0); LYMPHOCYTES # (AUTO) 0.6 10^3/uL (1.5-3.5); LYMPHOCYTES % (AUTO) 5.5 %; MEAN CORPUSCULAR HEMOGLOBIN 33.1 pg (27.0-31.0); MEAN CORPUSCULAR HGB CONC 32.6 g/dL (32.0-36.0); MEAN CORPUSCULAR VOLUME 101.7 fL (80.0-94.0); MEAN PLATELET VOLUME 10.5 fL (7.4-11.4); MONOCYTES # (AUTO) 0.4 10^3/uL (0.0-1.0); NEUTROPHILS % (AUTO) 89.8 %; PLT - PLATELET COUNT 137 10^3/uL (130-450); RED CELL DISTRIBUTION WIDTH 12.4 % (12.0-15.0)
[2020-07-26 20:07] LABS: INR 1.1 (0.8-1.2); KETONES, SERUM (ACETEST) LARGE (NEGATIVE); PT - PROTHROMBIN TIME 12.6 secs (9.9-12.6)
[2020-07-26 20:14] LABS: VBG PH 7.173 (7.31-7.41)
[2020-07-26 20:15] LABS: VBG BASE EXCESS -16.8 mmol/L (-2 - +2); VBG OXYGEN SATURATION 95.5 % (60-80); VBG PCO2 27.8 mmHg (41-51); VBG PO2 89.5 mmHg (25-47); VBG TOTAL CO2 10.8 mmol/L (24-29)
[2020-07-26 20:16] LABS: ALBUMIN 5.4 g/dL (3.2-5.5); ALBUMIN/GLOBULIN RATIO 1.4 (1.0-2.2); ALKALINE PHOSPHATASE 97 IU/L (42-121); ALT ALANINE AMINOTRANSFERASE 91 IU/L (10-60); AST ASPARTATE AMINOTRANSFERASE 113 IU/L (10-42); BILIRUBIN,TOTAL 3.1 mg/dL (0.2-1.0); BUN - BLOOD UREA NITROGEN 20 mg/dL (6-20); CALCIUM 9.1 mg/dL (8.5-10.3); CHLORIDE 95 mmol/L (101-111); CREATININE 1.4 mg/dL (0.6-1.2); ETOH - ETHANOL < 5.0 mg/dL; GFR - MDRD 50 (>89); GLUCOSE 208 mg/dL (70-100); LIPASE 58 U/L (22-51); PHOSPHORUS 6.6 mg/dL (2.5-4.6); POTASSIUM 4.8 mmol/L (3.5-5.0); SODIUM 137 mmol/L (135-145); TOTAL PROTEIN 9.4 g/dL (6.7-8.2)
[2020-07-26 20:18] LABS: CARBON DIOXIDE - CO2 10 mmol/L (21-32)
[2020-07-26] MEDS ORDERED: SODIUM CHLORIDE FLUSH 0.9% 10 ML SYRINGE IVP PRN (20:30)
[2020-07-26] MEDS ORDERED: ONDANSETRON 4 MG/2 ML VIAL IVP PRN (20:30)
[2020-07-26] MEDS ORDERED: ACETAMINOPHEN 325 MG TABLET PO PRN (20:30)
[2020-07-26] MEDS ORDERED: LORazepam 1 MG TABLET PO PRN (20:38)
--- NOTE | 2020-07-26 20:38 | HISTORY & PHYSICAL EXAMINATION ---
Chief Complaint - Chief Complaint Chief Complaint: nausea/vomiting, tremulous, tachycardia History of Present Illness - Admitted From Admitted From:: [facility] ED - History Obtained From Records Reviewed: yes History obtained from: patient - History of Present Illness HPI Comment/Other: Patient is a 69-year-old male with medical history significant for alcohol abuse, hypertension and hyperlipidemia who presented to the ED with complaint of nausea and vomiting for the past 2 days. And this time he has not eaten. He quit drinking alcohol 2 days ago and yesterday felt "horrible". He started vomiting yesterday and has been vomiting for most of this time until today when he presented to the ED. He is scheduled to go in for alcohol treatment program on 07/30/2020. He was mildly tremulous at home and upon arrival. He has since been given some IV hydration and Ativan and is currently comfortable. Work-up in the ED included a BMP which showed a bicarbonate level of 10 and very high serum ketones. He is being admitted for further hydration and treatment as needed for alcohol withdrawal. At bedside he denies chest pain, dyspnea, abdominal pain or fever. He reports chills. His nausea has improved he is able to tolerate p.o. liquids at the moment. History - Past Medical History Cardiovascular: reports: Hypertension, Coronary artery disease Respiratory: reports: None Neuro: reports: Other Endocrine/Autoimmune: reports: None GI: reports: None : reports: None HEENT: reports: None Psych: reports: Depression, Anxiety Musculoskeletal: reports: Osteoarthritis, Chronic back pain, Other Derm: reports: None MRSA Hx?: No - Past Surgical History General: reports: Other - Family & Social History Family History Comment/Other: Mom at age 73 of emphysema and was a ferocious cigarette smoker. Dad at age 67 of metastatic lung cancer and was also a smoker. 1 sister is 76 and healthy. One daughter has been smoking since the age of 14 and he worries about her getting emphysema. But no hypertension, diabetes, cancer, heart attack Living Situation: With spouse/s.o. Social History Notes: Born and raised in the [facility]. 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 Came to [facility] approximately 10 years ago with his girlfriend. She is born and raised in [place], and came back to take care of her mom. They moved in to her mom's house, and took care of her until she . He still lives with his girlfriend. He never smoked cigarettes. 50 years ago, in the 70s he did speed a couple of times but he is never done heroin, LSD, cocaine. He does have a history of alcohol abuse. He is drinking up to half a pint of vodka a day sometimes. Started cutting back 5 years ago. Right now he is doing about a beer a day. once before. . His girlfriend is Yvonne Morgan. He regards her as his DURABLE POWER OF ASSOCIATE STORE DIRECTOR. I am also allowed to speak to his daughter, Saba Montelongo if need be. - Substance History Use: Uses substance without health or social issues: Alcohol - POLST Patient has POLST: No POLST Status: Full Code Meds/Allgy - Home Medications Home Medications: Ambulatory Orders Medication Instructions Recorded Confirmed Aspirin Chewable [St Anderson 81 mg PO DAILY 01/02/20 07/26/20 Aspirin] Atorvastatin [Lipitor] 20 mg PO DAILY #30 tablet 01/03/20 07/26/20 lisinopriL [Prinivil] 5 mg PO DAILY 01/03/20 07/26/20 Pnv No.95/Ferrous Fum/Folic AC 1 each PO DAILY #30 tablet 04/13/20 07/26/20 [ Tablet] Thiamine [Vitamin B-1] 100 mg PO DAILY #30 tablet 04/13/20 07/26/20 - Allergies Allergies/Adverse Reactions: Allergies Allergy/AdvReac Type Severity Reaction Status Date / Time No Known Drug Allergies Allergy Verified 04/12/20 10:49 Review of Systems - Constitutional Constitutional: reports: Other (tremulous). denies: Fatigue, Fever, Chills - Eyes Eyes: denies: Pain, Dipolpia - Ears, Nose & Throat Ears, Nose & Throat: denies: Ear pain - Cardiovascular Cariovascular: denies: Irregular heart rate, Chest pain, Edema, Lightheadedness, Syncope, Exertional dyspnea, Decr. exercise tolerance - Respiratory Respiratory: denies: Cough, Sputum production, Wheezing, SOB at rest, SOB with exertion - Gastrointestinal Gastrointestinal: reports: Nausea, Vomiting. denies: Abdominal pain, Abdominal distention - Genitourinary Genitourinary: denies: Dysuria, Frequency, Urgency, Hematuria - Musculoskeletal Musculoskeletal: denies: Muscle pain, Back pain, Muscle aches, Stiffness - Integumentary Integumentary: denies: Rash, Pruritis, Lesions - Neurological Neurological: denies: Focal weakness, Headache, Dizziness - Psychiatric Psychiatric: denies: Depression, Anxiety - Endocrine Endocrine: denies: Polyuria, Polydypsia - Hematologic/Lymphatic Hematologic/Lymphatic: denies: Anemia, Bruising Prior Level of Functionality: Patient is independent of activities of daily living. Exam - Vital Signs Vital Signs: Vital Signs x48h Temp Pulse Resp BP Pulse Ox 07/26/20 20:24 116 H 16 98 07/26/20 20:07 108 H 15 168/105 H 100 07/26/20 20:00 117 H 16 179/113 H 97 07/26/20 19:40 36.2 C L 135 H 20 200/123 H 96 - Physical Exam General Appearance: positive: Alert, Mild distress, Other (mildly tremulous) Eyes Bilateral: positive: PERRL, EOMI ENT: positive: Dry mucous membranes Neck: positive: No JVD, Trachea midline Respiratory: positive: Chest non-tender, No respiratory distress, Breath sounds nml. negative: Wheezes, Rales, Rhonchi Cardiovascular: positive: Tachycardia Abdomen: positive: Non-tender, No organomegaly, Nml bowel sounds, No distention. negative: Guarding, Rebound Back: positive: Nml inspection Skin: positive: Color nml, No rash, Warm, Dry Extremities: positive: Non-tender, Full ROM, Nml appearance, No pedal edema Neurologic/Psychiatric: positive: Oriented x3, Mood/affect nml Conclusion/Plan - Problem List (1) Alcohol withdrawal Conclusion/Plan: Patient is schedule to go to a detox/rehab facility next week CIWA protocol initiated Librium 25mg po q8hr. Thiamine IV hydration with normal saline at 100ml/hr Qualifiers: Complication of substance-induced condition: uncomplicated Qualified Code(s): F10.230 - Alcohol dependence with withdrawal, uncomplicated (2) Alcoholic ketoacidosis Conclusion/Plan: Patient receiving IV hydration Will recheck BMP (3) Acute kidney injury Conclusion/Plan: Likely pre-renal from nausea and vomiting related to alcohol withdrawal. Patient receiving IV hydration with normal saline. Will recheck am labs (4) Hyperlipidemia Conclusion/Plan: On atorvastatin (5) Hypertension Conclusion/Plan: Currently normotensive. Will resume lisinopril in the am Qualifiers: Hypertension type: essential hypertension Qualified Code(s): I10 - Essential (primary) hypertension (6) Elevated liver enzymes Conclusion/Plan: Mild. 2/2 alcohol abuse - Lab Results Fish Bones: 07/26/20 19:53 07/26/20 19:53 Core Measures - Anticipated LOS I expect patient to be DC'd or transferred within 96 hours.: Yes - DVT/VTE - Prophylaxis VTE/DVT Device ordered at admit?: Yes
[2020-07-26] MEDS: SODIUM CHLORIDE 0.9% 1,000 ML IV SCH (21:10)
[2020-07-26] MEDS: chlordiazePOXIDE 25 MG CAPSULE PO SCH (21:10)
[2020-07-26 21:40] LABS: B. PARAPERTUSSIS- RESP PCR PAN NOT DETECTED; B. PERTUSSIS- RESP PCR PANEL NOT DETECTED; C. PNEUMONIAE- RESP PCR PANEL NOT DETECTED; CORONAVIRUS 229E-RESP PCR NOT DETECTED; CORONAVIRUS HKU1-RESP PCR NOT DETECTED; CORONAVIRUS NL63-RESP PCR NOT DETECTED; CORONAVIRUS OC43-RESP PCR NOT DETECTED; HUMAN METAPNEUMOVIRUS NOT DETECTED; INFLUENZA A- RESP PCR PANEL NOT DETECTED; INFLUENZA B - RESP PCR PANEL NOT DETECTED; M. PNEUMONIAE- RESP PCR PANEL NOT DETECTED; PARAINFLUENZA VIRUS 1 NOT DETECTED; PARAINFLUENZA VIRUS 2 NOT DETECTED; PARAINFLUENZA VIRUS 3 NOT DETECTED; PARAINFLUENZA VIRUS 4 NOT DETECTED; RHINOVIRUS/ENTEROVIRUS NOT DETECTED; RSV- RESP PCR PANEL NOT DETECTED; SARS-CoV-2 -RESP PCR PANEL NOT DETECTED
[2020-07-26] MEDS: SODIUM CHLORIDE FLUSH 0.9% 10 ML SYRINGE IVP SCH (23:19)
[2020-07-27 00:01] LABS: CALCIUM 8.4 mg/dL (8.5-10.3); CREATININE 1.2 mg/dL (0.6-1.2); POTASSIUM 5.7 mmol/L (3.5-5.0)
[2020-07-27] MEDS: chlordiazePOXIDE 25 MG CAPSULE PO SCH ×2 (05:06→14:06)
[2020-07-27 05:12] LABS: BASOPHILS % (AUTO) 0.2 %; EOSINOPHILS % (AUTO) 0.5 %; HCT - HEMATOCRIT 39.9 % (42.0-52.0); HGB - HEMOGLOBIN 13.3 g/dL (14.0-18.0); LYMPHOCYTES # (AUTO) 0.8 10^3/uL (1.5-3.5); MEAN CORPUSCULAR HEMOGLOBIN 33.7 pg (27.0-31.0); MEAN CORPUSCULAR HGB CONC 33.3 g/dL (32.0-36.0); MEAN PLATELET VOLUME 10.7 fL (7.4-11.4); MONOCYTES # (AUTO) 0.7 10^3/uL (0.0-1.0); MONOCYTES % (AUTO) 11.4 %; NEUTROPHILS # (AUTO) 4.2 10^3/uL (1.5-6.6); NEUTROPHILS % (AUTO) 73.6 %; PLT - PLATELET COUNT 99 10^3/uL (130-450); RED BLOOD COUNT 3.95 10^6/uL (4.70-6.10); RED CELL DISTRIBUTION WIDTH 12.3 % (12.0-15.0); WHITE BLOOD COUNT 5.7 x10^3/uL (4.8-10.8)
[2020-07-27 05:28] LABS: CALCIUM 8.4 mg/dL (8.5-10.3); CREATININE 1.1 mg/dL (0.6-1.2); MAGNESIUM 1.9 mg/dL (1.7-2.8); POTASSIUM 5.2 mmol/L (3.5-5.0)
[2020-07-27] MEDS: SODIUM CHLORIDE 0.9% 1,000 ML IV SCH (06:28)
[2020-07-27 08:14] LABS: VBG BASE EXCESS -6.7 mmol/L (-2 - +2); VBG HCO3 17.9 mmol/L (23-28); VBG OXYGEN SATURATION 95.4 % (60-80); VBG PCO2 33.6 mmHg (41-51); VBG PH 7.345 (7.31-7.41); VBG PO2 75.8 mmHg (25-47)
[2020-07-27] MEDS: SODIUM CHLORIDE FLUSH 0.9% 10 ML SYRINGE IVP SCH (08:30)
[2020-07-27 08:32] LABS: ALBUMIN 4.4 g/dL (3.2-5.5); BILIRUBIN,DIRECT 0.5 mg/dL (0.1-0.5); BILIRUBIN,TOTAL 2.8 mg/dL (0.2-1.0); MAGNESIUM 1.8 mg/dL (1.7-2.8); TOTAL PROTEIN 7.7 g/dL (6.7-8.2)
[2020-07-27] MEDS ORDERED: PRENATAL VITAMIN TABLET PO SCH (09:00)
[2020-07-27] MEDS ORDERED: ASPIRIN CHEW 81 MG TABLET PO SCH (09:00)
[2020-07-27] MEDS ORDERED: THIAMINE 100 MG TABLET PO SCH (09:00)
--- NOTE | 2020-07-27 11:35 | Discharge Plan ---
Discharge Plan Problem Reviewed?: Yes Disposition: Home, Self Care Condition: Fair Prescriptions: chlordiazePOXIDE [Librium] 5 mg PO TID #10 cap Ondansetron Odt [Zofran Odt] 4 mg TL Q6H PRN #5 tablet PRN Reason: Nausea / Vomiting Diet: Soft (Eat a bland, soft diet to completely get over the nausea and vomiting. Stay well-hydrated. Remain off alcohol.) Activity Restrictions: Activity as Tolerated Shower Restrictions: No Driving Restrictions: Yes (No driving while you are taking Librium) Instruction Topics: Naltrexone injection Health Concerns: You were placed in the hospital because of dehydration from nausea and vomiting and you had acidosis from vomiting and alcohol use. You went through mild alcohol withdrawal. You are being discharged to take 1-1/2 more days of Librium to get through the alcohol withdrawal. A prescription for Zofran under the tongue lozenges has also been ordered in case you get recurrence of your nausea. Eat a bland diet to get through this stage before advancing her diet as tolerated. New prescriptions were electronically sent to your [facility] pharmacy in [place] Resume all your pre-hospital medications. Remain off alcohol. Keep your Thursday appointment with your counselor and for Vivitrol treatment. Plan of Treatment: Take 2 Librium tonite (two tablets of 5mg=10 mg), then take 10 mg 3 times tomorrow, then 1 tablet twice a day until gone. Care Goals: Improvement in symptoms and stabilization are the goals. Assessment: The patient understands and is agreeable with the plan. Additional Instructions or Follow Up instructions: If you have new or worsening symptoms, call your PCP for advice or come to the ER. No Smoking: If you smoke, Please STOP! Call for help. Follow-up with: Wojciech Cevallos DO [Primary Care Provider] -
[2020-07-27 15:57] VITALS: BP 133/79
--- NOTE | 2020-07-27 16:10 | DISCHARGE SUMMARY ---
Discharge Summary Admit Date: 07/26/20 Discharge Date: 07/27/20 Discharging Provider: Dr Mariah Tafoya Primary Care Provider: Dr Wojciech Cevallos Condition at Discharge: Fair Discharge Disposition: 01 Home, Self Care - HPI History of Present Illness: From the admission H&P of Dr. Radha Lambert: Patient is a 69-year-old male with medical history significant for alcohol abuse, hypertension and hyperlipidemia who presented to the ED with complaint of nausea and vomiting for the past 2 days. And this time he has not eaten. He quit drinking alcohol 2 days ago and yesterday felt "horrible". He started vomiting yesterday and has been vomiting for most of this time until today when he presented to the ED. He is scheduled to go in for alcohol treatment program on 07/30/2020. He was mildly tremulous at home and upon arrival. He has since been given some IV hydration and Ativan and is currently comfortable. Work-up in the ED included a BMP which showed a bicarbonate level of 10 and very high serum ketones. He is being admitted for further hydration and treatment as needed for alcohol withdrawal. At bedside he denies chest pain, dyspnea, abdominal pain or fever. He reports chills. His nausea has improved he is able to tolerate p.o. liquids at the moment. - HOSPITAL COURSE Hospital Course: 1) Alcohol withdrawal He was started on a CIWA protocol with iv Ativan to be given as needed but he needed minimal treatment. He was given thiamine and multivitamins. Social work consult was requested to offer him assistance from substance abuse, which he was interested in, in fact he had quit drinking alcohol 2 days previously because he was supposed to be off alcohol for 7 days before being started on new monthly im Naltrexone, which was scheduled to begin on Thursday07/30/2020. 2) N/V Antiemetics were ordered as needed. His symptoms improved and his clear liquids were able to be advanced rapidly to a soft diet. 3) Alcoholic ketoacidosis He ws started on IV fluids in the form of saline and his BMP was followed. The electrolytes improved by the next day and he was able to be discharged. 4) Elevated LFTs From alcohol abuse his bili was 3.1>> 2.8, AST 113>> 78, ALT 97>> 74, and Lipase was 58>> 85, but no pain, tenderness, guarding or rebound were present to evaluate his pancreas with imaging. 5) CAT IV saline was started. His BUN/creatinine was followed and improved from 20/1.4 to normal (19/1.1) by the time of discharge. 6) Hypertension As per Hx. His BP meds were ordered here. 7) Hyperlipidemia As per Hx. - ALLERGIES Allergies/Adverse Reactions: Allergies Allergy/AdvReac Type Severity Reaction Status Date / Time No Known Drug Allergies Allergy Verified 04/12/20 10:49 - MEDICATIONS Home Medications: Ambulatory Orders Medication Instructions Recorded Confirmed Aspirin Chewable [St Anderson 81 mg PO DAILY 01/02/20 07/26/20 Aspirin] Atorvastatin [Lipitor] 20 mg PO DAILY #30 tablet 01/03/20 07/26/20 lisinopriL [Prinivil] 5 mg PO DAILY 01/03/20 07/26/20 Pnv No.95/Ferrous Fum/Folic AC 1 each PO DAILY #30 tablet 04/13/20 07/26/20 [ Tablet] Thiamine [Vitamin B-1] 100 mg PO DAILY #30 tablet 04/13/20 07/26/20 Ondansetron Odt [Zofran Odt] 4 mg TL Q6H PRN #5 tablet 07/27/20 chlordiazePOXIDE [Librium] 5 - 10 mg PO TID #10 cap 07/27/20 - PHYSICAL EXAM AT DISCHARGE General Appearance: positive: No acute distress, Alert, Other (Disheveld, groggy from last Ativan.) Eyes Bilateral: positive: EOMI, Other (Scleral ictrus) ENT: positive: ENT inspection nml, No signs of dehydration Neck: positive: Nml inspection, No JVD Respiratory: positive: No respiratory distress, Breath sounds nml Cardiovascular: positive: Regular rate & rhythm, No murmur Abdomen: positive: Non-tender, Nml bowel sounds, No distention Skin: positive: Warm, Dry, Other (Icteric) Extremities: positive: Non-tender, No pedal edema Neurologic/Psychiatric: positive: Oriented x3, Other (Groggy) - LABS Result Diagrams: 07/27/20 04:58 07/27/20 04:58 - DIAGNOSTIC IMAGING Diagnostic Imaging Results: Final report reviewed - FOLLOW UP Follow Up: See PCP for routine hospital follow-up. - TIME SPENT Time Spent in Discharge (Minutes): 30
== END 2020-07-27 16:45 | disposition home or self-care (01) ==
LOC: ED 19:39 → MS2 20:30
PROVIDERS: ADMIT Internal Medicine; ATTEND Internal Medicine
DX: F10.239 Alcohol dependence with withdrawal, unspecified (principal); E87.2 Acidosis; N17.9 Acute kidney failure, unspecified; I10 Essential (primary) hypertension; E78.5 Hyperlipidemia, unspecified; R74.8 Abnormal levels of other serum enzymes; Z20.822 Contact with and (suspected) exposure to COVID-19; I25.10 Atherosclerotic heart disease of native coronary artery without angina pectoris
CPT/HCPCS: 36415; 80048; 80053; 80076; 82009; 82803; 83690; 83735; 84100; 85025; 85610; 87631; 96365; 96375; 96376; 99283; 99285; A9270; G0378; G0480; J2060; J3411; J7040; J8499; 0202U; 80320

== ENCOUNTER 2020-08-18 18:16 | Observation (INO) | payer MEDICARE, MEDICAID ==
[2020-08-18] MEDS ORDERED: ONDANSETRON 4 MG/2 ML VIAL IVP STA (18:53)
[2020-08-18] MEDS ORDERED: SODIUM CHLORIDE 0.9% 1,000 ML IV STA (18:53)
[2020-08-18] MEDS ORDERED: LORazepam 2 MG/ML VIAL IVP STA (19:08)
--- NOTE | 2020-08-18 19:09 | ED Physician Documentation ---
PD HPI ABD PAIN - Stated complaint Stated Complaint: VOMITING - Chief complaint Chief Complaint: Abd Pain - History obtained from History obtained from: Patient - Additional information Additional information: 69-year-old gentleman with problems with alcoholism. He was dry for about a week but then drank yesterday. He states just one small bottle of vodka along with a hamburger. Few hours later started vomiting, that was around 8 PM last night and really has not stopped vomiting since. No significant abdominal pain "except from vomiting." No diarrhea. No blood in the vomit. Review of Systems Constitutional: reports: Sweats Eyes: denies: Loss of vision, Decreased vision Nose: denies: Rhinorrhea / runny nose, Congestion Cardiac: denies: Chest pain / pressure, Palpitations Respiratory: denies: Dyspnea, Cough PD PAST MEDICAL HISTORY - Past Medical History Cardiovascular: Hypertension, Coronary artery disease Respiratory: None Neuro: Other Endocrine/Autoimmune: None GI: None : None HEENT: None Psych: Depression, Anxiety Musculoskeletal: Osteoarthritis, Chronic back pain, Other Derm: None - Past Surgical History Past Surgical History: Yes General: Other - Present Medications Home Medications: Ambulatory Orders Medication Instructions Recorded Confirmed Aspirin Chewable [St Anderson 81 mg PO DAILY 01/02/20 07/26/20 Aspirin] Atorvastatin [Lipitor] 20 mg PO DAILY #30 tablet 01/03/20 07/26/20 lisinopriL [Prinivil] 5 mg PO DAILY 01/03/20 07/26/20 Pnv No.95/Ferrous Fum/Folic AC 1 each PO DAILY #30 tablet 04/13/20 07/26/20 [ Tablet] Thiamine [Vitamin B-1] 100 mg PO DAILY #30 tablet 04/13/20 07/26/20 Ondansetron Odt [Zofran Odt] 4 mg TL Q6H PRN #5 tablet 07/27/20 chlordiazePOXIDE [Librium] 5 - 10 mg PO TID #10 cap 07/27/20 - Allergies Allergies/Adverse Reactions: Allergies Allergy/AdvReac Type Severity Reaction Status Date / Time No Known Drug Allergies Allergy Verified 08/18/20 18:24 - Social History Does the pt smoke?: No Smoking Status: Never smoker Does the pt drink ETOH?: No Does the pt have substance abuse?: No - Immunizations Immunizations are current?: No - POLST Patient has POLST: No POLST Status: Full Code PD ED PE NORMAL - Vitals Vital signs reviewed: Yes - General General: Alert and oriented X 3 (He is tremulous, hypertensive and tachycardic) - HEENT HEENT: PERRL, EOMI - Neck Neck: Supple, no meningeal sign, No bony TTP - Cardiac Cardiac: Other (Tachycardic without murmur) - Respiratory Respiratory: No respiratory distress, Clear bilaterally - Abdomen Abdomen: Normal bowel sounds, Soft, Non tender - Derm Derm: Normal color, Warm and dry - Extremities Extremities: No edema, No calf tenderness / cord - Neuro Neuro: Alert and oriented X 3, Normal speech Results - Vitals Vitals: Vital Signs - 24 hr 08/18/20 08/18/20 18:19 19:15 Temperature 36.6 C 36.5 C Heart Rate 128 H 109 H Respiratory 20 18 Rate Blood Pressure 151/97 H 156/92 H O2 Saturation 96 98 Oxygen O2 Source Room air - Labs Labs: Laboratory Tests 08/18/20 08/18/20 08/18/20 18:52 18:52 18:52 WBC 8.9 RBC 4.67 L Hgb 15.3 Hct 48.8 MCV 104.5 H MCH 32.8 H MCHC 31.4 L RDW 13.4 Plt Count 123 L MPV 10.6 Neut # (Auto) 7.9 H Lymph # (Auto) 0.4 L Houghton # (Auto) 0.5 Eos # (Auto) 0.0 Baso # (Auto) 0.0 Absolute Nucleated RBC 0.00 Nucleated RBC % 0.0 VBG pH VBG pCO2 VBG pO2 VBG HCO3 VBG Total CO2 VBG O2 Saturation VBG Base Excess Sodium 138 Potassium 5.5 H Chloride 96 L Carbon Dioxide 10 L* Anion Gap 32.0 H BUN 19 Creatinine 1.6 H Estimated GFR (MDRD) 43 L Glucose 265 H Calcium 9.0 Magnesium 2.0 Total Bilirubin 2.9 H AST 163 H ALT 103 H Alkaline Phosphatase 110 Total Protein 9.6 H Albumin 5.6 H Globulin 4.0 Albumin/Globulin Ratio 1.4 Lipase 89 H Ethyl Alcohol < 5.0 Serum Ketones MODERATE H 08/18/20 19:10 WBC RBC Hgb Hct MCV MCH MCHC RDW Plt Count MPV Neut # (Auto) Lymph # (Auto) [place]oughton # (Auto) Eos # (Auto) Baso # (Auto) Absolute Nucleated RBC Nucleated RBC % VBG pH 7.138 L VBG pCO2 29.4 L VBG pO2 26.4 VBG HCO3 9.7 L VBG Total CO2 10.6 L VBG O2 Saturation 51.1 L VBG Base Excess -17.9 L Sodium Potassium Chloride Carbon Dioxide Anion Gap BUN Creatinine Estimated GFR (MDRD) Glucose Calcium Magnesium Total Bilirubin AST ALT Alkaline Phosphatase Total Protein Albumin Globulin Albumin/Globulin Ratio Lipase Ethyl Alcohol Serum Ketones PD MEDICAL DECISION MAKING - ED course ED course: 69-year-old gentleman presents with vomiting in the setting of alcohol use. Looking like he is withdrawing but states he only drank one vodka yesterday and had been otherwise not drinking for a week. Looking much better after some Ativan IV fluids and Zofran. Labs notable for being consistent with alcoholic ketoacidosis and as such he acquiesced to a night in the hospital for IV fluids which is necessary. Spoke with Dr. Baig for observation at 7:59 PM. Departure - Departure Disposition: ED Place in Observation Clinical Impression: Alcoholic ketoacidosis, Acute kidney injury Alcohol withdrawal Qualifiers: Complication of substance-induced condition: uncomplicated Qualified Code(s): F10.230 - Alcohol dependence with withdrawal, uncomplicated Condition: Stable Discharge Date/Time: 08/18/20 20:43
[2020-08-18 19:18] LABS: VBG HCO3 9.7 mmol/L (23-28); VBG PCO2 29.4 mmHg (41-51); VBG PH 7.138 (7.31-7.41); VBG PO2 26.4 mmHg (25-47); VBG TOTAL CO2 10.6 mmol/L (24-29)
[2020-08-18 19:19] LABS: ALBUMIN 5.6 g/dL (3.2-5.5); ALBUMIN/GLOBULIN RATIO 1.4 (1.0-2.2); ALKALINE PHOSPHATASE 110 IU/L (42-121); ALT ALANINE AMINOTRANSFERASE 103 IU/L (10-60); AST ASPARTATE AMINOTRANSFERASE 163 IU/L (10-42); BILIRUBIN,TOTAL 2.9 mg/dL (0.2-1.0); BUN - BLOOD UREA NITROGEN 19 mg/dL (6-20); CHLORIDE 96 mmol/L (101-111); CREATININE 1.6 mg/dL (0.6-1.2); ETOH - ETHANOL < 5.0 mg/dL; GFR - MDRD 43 (>89); GLUCOSE 265 mg/dL (70-100); LIPASE 89 U/L (22-51); POTASSIUM 5.5 mmol/L (3.5-5.0); SODIUM 138 mmol/L (135-145); TOTAL PROTEIN 9.6 g/dL (6.7-8.2)
[2020-08-18 19:19] LABS: VBG BASE EXCESS -17.9 mmol/L (-2 - +2); VBG OXYGEN SATURATION 51.1 % (60-80)
[2020-08-18 19:22] LABS: CARBON DIOXIDE - CO2 10 mmol/L (21-32)
[2020-08-18 19:32] LABS: BASOPHILS % (AUTO) 0.2 %; HCT - HEMATOCRIT 48.8 % (42.0-52.0); HGB - HEMOGLOBIN 15.3 g/dL (14.0-18.0); LYMPHOCYTES # (AUTO) 0.4 10^3/uL (1.5-3.5); LYMPHOCYTES % (AUTO) 3.9 %; MEAN CORPUSCULAR HEMOGLOBIN 32.8 pg (27.0-31.0); MEAN CORPUSCULAR HGB CONC 31.4 g/dL (32.0-36.0); MEAN CORPUSCULAR VOLUME 104.5 fL (80.0-94.0); MEAN PLATELET VOLUME 10.6 fL (7.4-11.4); MONOCYTES # (AUTO) 0.5 10^3/uL (0.0-1.0); MONOCYTES % (AUTO) 5.8 %; NEUTROPHILS # (AUTO) 7.9 10^3/uL (1.5-6.6); NEUTROPHILS % (AUTO) 89.3 %; PLT - PLATELET COUNT 123 10^3/uL (130-450); RED BLOOD COUNT 4.67 10^6/uL (4.70-6.10); RED CELL DISTRIBUTION WIDTH 13.4 % (12.0-15.0); WHITE BLOOD COUNT 8.9 x10^3/uL (4.8-10.8)
[2020-08-18] MEDS ORDERED: THIAMINE INJ 100 MG in SODIUM CHLORIDE 0.9% 50 ML IV STA (19:59)
[2020-08-18] MEDS ORDERED: ONDANSETRON 4 MG/2 ML VIAL IVP PRN (20:01)
[2020-08-18] MEDS ORDERED: IBUPROFEN 400 MG TABLET PO PRN (20:01)
[2020-08-18] MEDS ORDERED: PROCHLORPERAZINE 10 MG/2 ML VIAL IVP PRN (20:01)
[2020-08-18] MEDS ORDERED: oxyCODONE 5 MG TABLET PO PRN (20:01)
[2020-08-18] MEDS ORDERED: SODIUM CHLORIDE FLUSH 0.9% 10 ML SYRINGE IVP PRN (20:01)
[2020-08-18] MEDS ORDERED: MULTIVITAMIN 10 ML, THIAMINE INJ 100 MG, FOLIC ACID INJ 1 MG in SODIUM CHLORIDE 0.9% 1,... IV SCH (20:03)
--- NOTE | 2020-08-18 20:03 | HISTORY & PHYSICAL EXAMINATION ---
Chief Complaint - Chief Complaint Chief Complaint: vomitting w gen abd pain History of Present Illness - Admitted From Admitted From:: home - History Obtained From Records Reviewed: [facility] History obtained from: Dr. Menard Exam Limitations: none - History of Present Illness HPI Comment/Other: 69-year-old white male who has a history of alcohol abuse and previous history of alcoholic ketoacidosis and alcohol withdrawal. He was seen in the emergency room January 2020 with dizziness, possible worsening of an old stroke and he was found to be intoxicated. He was seen again in the ER April 12, 2020 for nausea vomiting and dehydration. She was placed in observation for dehydration and hyperkalemia. He was then admitted again July 26, 2020 with another episode of nausea, vomiting for 2 days. He had stopped drinking 2 days prior to admission and felt horrible. CIWA protocol was initiated, and he was able to be discharged the next day. He was scheduled to go into alcohol treatment program July 30. He says that he is going 3 days a week at [facility]. He is kind of depressed because his girlfriend left him. She was tired of his drinking. But he is defensive and telling me that she has her own problems such as smoking too much, doing too much marijuana so he does not understand what her complaint is about. He now returns with generalized abdominal pain, vomiting. He was dry for about a week and then drank yesterday. He states he only had 1 small bottle of vodka along with a hamburger yesterday. A few hours later he started having nausea, vomiting, generalized abdominal pain. No diarrhea, no vomiting of blood, no blood in his stool. He denies fever, chills, change in the color of his stool. In the emergency room with Dr. Menard temperature was 36.6. Heart rate 128. Respirations 20, blood pressure 151/97 and 96% on room air. He was tremulous, hypertensive, tachycardic and alert and oriented in the emergency room. Other than the tachycardia, cardiac and respiratory exam was negative. Abdominal exam was negative. Venous pH was 7.138. Alcohol level was less than 5. Moderate se rum ketones. Potassium was 5.5, BUN 19, creatinine 1.6. Random glucose 265. Total bili 2.9, AST 163, ALT 103. White cell count is 8.9 with a hemoglobin of 15.3. He is now placed in observation again for alcoholic ketoacidosis and possible alcohol withdrawal. He is already received thiamine in the emergency room. History - Past Medical History Cardiovascular: reports: Hypertension, Coronary artery disease Respiratory: reports: None Neuro: reports: Other Endocrine/Autoimmune: reports: None GI: reports: None : reports: None HEENT: reports: None Psych: reports: Depression, Anxiety Musculoskeletal: reports: Osteoarthritis, Chronic back pain, Other Derm: reports: None MRSA Hx?: No - Past Surgical History General: reports: Other - Family & Social History Family History Comment/Other: Mom at age 73 of emphysema and was a ferocious cigarette smoker. Dad at age 67 of metastatic lung cancer and was also a smoker. 1 sister is 76 and healthy. One daughter has been smoking since the age of 14 and he worries about her getting emphysema. But no hypertension, diabetes, cancer, heart attack Living arrangement: At home Living Situation: With spouse/s.o. Social History Notes: Born and raised in the [facility]. 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 Came to [facility] approximately 10 years ago with his girlfriend. She was born and raised in [place], and came back to take care of her mom. They moved in to her mom's house, and took care of her until she . He had been living with his girlfriend until recently. She got tired of his drinking, and she moved in with her sister. He never smoked cigarettes. 50 years ago, in the 70s he did speed a couple of times but he is never done heroin, LSD, cocaine. He does have a history of alcohol abuse. He is drinking up to half a pint of vodka a day sometimes. Started cutting back 5 years ago. Right now he is doing about a beer a day. once before. . His ex-girlfriend is Yvonne Morgan. He did regard her as his DURABLE POWER OF IT PROFESSIONAL. But she left him so he doesn't know who to designate. I am also allowed to speak to his daughter, Saba Montelongo if need be. - Substance History Use: Uses substance without health or social issues: Alcohol - POLST Patient has POLST: No POLST Status: Full Code Meds/Allgy - Home Medications Home Medications: Ambulatory Orders Medication Instructions Recorded Confirmed Aspirin Chewable [[place] Anderson 81 mg PO DAILY 01/02/20 07/26/20 Aspirin] Atorvastatin [Lipitor] 20 mg PO DAILY #30 tablet 01/03/20 07/26/20 lisinopriL [Prinivil] 5 mg PO DAILY 01/03/20 07/26/20 Pnv No.95/Ferrous Fum/Folic AC 1 each PO DAILY #30 tablet 04/13/20 07/26/20 [ Tablet] Thiamine [Vitamin B-1] 100 mg PO DAILY #30 tablet 04/13/20 07/26/20 Ondansetron Odt [Zofran Odt] 4 mg TL Q6H PRN #5 tablet 07/27/20 chlordiazePOXIDE [Librium] 5 - 10 mg PO TID #10 cap 07/27/20 - Allergies Allergies/Adverse Reactions: Allergies Allergy/AdvReac Type Severity Reaction Status Date / Time No Known Drug Allergies Allergy Verified 08/18/20 18:24 Review of Systems - Constitutional Constitutional: reports: Fatigue, Malaise, Weakness, Poor appetite - Eyes Eyes: denies: Pain, Irritation, Vision loss - Ears, Nose & Throat Ears, Nose & Throat: denies: Hearing loss, Postnasal drainage, Sore throat - Cardiovascular Cariovascular: reports: Lightheadedness. denies: Irregular heart rate, Palpitations, Chest pain, Edema, Exertional dyspnea, Decr. exercise tolerance - Respiratory Respiratory: denies: Cough, Sputum production, Wheezing - Gastrointestinal Gastrointestinal: reports: Abdominal pain, Abdominal distention, Diarrhea, Nausea, Vomiting, Bloating, Poor appetite - Genitourinary Genitourinary: denies: Dysuria, Frequency, Urgency, Incontinence - Musculoskeletal Musculoskeletal: reports: Muscle pain, Back pain, Muscle aches, Joint pain - Integumentary Integumentary: denies: Rash, Pruritis, Lesions - Neurological Neurological: reports: General weakness, Headache, Dizziness. denies: Focal weakness, Memory problems, Pre-existing deficit - Psychiatric Psychiatric: reports: Depression. denies: Anxiety, Delusions, Hallucinations - Endocrine Endocrine: reports: Intolerance to cold. denies: Polyuria, Polydypsia, Polyphagia - Hematologic/Lymphatic Hematologic/Lymphatic: reports: Anemia, Bruising. denies: Petechiae Prior Level of Functionality: He said he is still able to take care of himself in his apartment. He can feed himself, dress himself, bathe himself. Everything is done very slowly because of overall fatigue. He denies use of durable medical equipment. Exam - Vital Signs Reviewed Vital Signs: Yes Vital Signs: Vital Signs x48h Temp Pulse Resp BP Pulse Ox 08/18/20 19:15 36.5 C 109 H 18 156/92 H 98 08/18/20 18:19 36.6 C 128 H 20 151/97 H 96 - Physical Exam General Appearance: positive: Alert, Mild distress (He states that his retching and emesis was every 30 minutes. Since he has been on MedSurg and put in his bed, he is only had one episode.), Other (5 foot 5 inch white male with male pattern baldness, mustache, thin. 63.5 kg. No tremors, no agitation.) Eyes Bilateral: positive: PERRL, EOMI ENT: positive: No signs of dehydration Neck: positive: No JVD. negative: Stiff neck Respiratory: positive: No respiratory distress. negative: Wheezes, Rales, Rhonchi Cardiovascular: positive: Regular rate & rhythm, Tachycardia. negative: Gallop/S4, Friction rub Peripheral Pulses: positive: 1+ Abdomen: positive: Nml bowel sounds, No distention, Tenderness (Mild, centered around right upper quadrant, epigastrium and left upper quadrant. None in the lower quadrants.). negative: Guarding, Rebound Skin: positive: Warm, Dry Extremities: positive: Full ROM, No pedal edema Neurologic/Psychiatric: positive: Oriented x3, CN's nml (2-12), Motor nml. negative: Facial droop, Slurred/abnml speech Conclusion/Plan - Problem List (1) Alcoholic ketoacidosis Conclusion/Plan: This is very similar to his previous admission in July. Plan: Observation status, aggressive IV fluid hydration, hopefully control the nausea enough that he can start to eat. Avoid Tylenol at this time. (2) Alcohol withdrawal Conclusion/Plan: [facility] protocol to be ordered. Qualifiers: Complication of substance-induced condition: uncomplicated Qualified Code(s): F10.230 - Alcohol dependence with withdrawal, uncomplicated (3) Dehydration Conclusion/Plan: Dry oral mucosa, acute kidney injury. Plan: 100 cc an hour of banana bag followed by 800 cc an hour of lactated Ringer's. Recheck labs in the morning. (4) Elevated liver enzymes Conclusion/Plan: In a patient with alcohol abuse. Suspect alcoholic hepatitis if not cirrhosis. Abdominal ultrasound in December 2019 had cirrhosis and fatty liver infiltration. No ascites or splenomegaly. CT of the abdomen was done April 2020. Severe hepatic steatosis. Liver otherwise unremarkable. No ascites. Ultrasound showed again hepatic steatosis, diffuse hepatocellular disease. No ascites, no splenomegaly. Hepatitis panel was negative for hepatitis A, B, C in December 2019. Plan: Social work consult. Again offered patient rehab. (5) Hyperkalemia Conclusion/Plan: Recheck potassium in 6 hours after hydration. If still hyperkalemic will get an amp of D50 and insulin. (6) CAT (acute kidney injury) Conclusion/Plan: Due to dehydration from nausea and vomiting. Hydrate, recheck labs. (7) Hypertension Conclusion/Plan: Home medication is lisinopril. Since he has an increasing creatinine, and he is not keeping oral intake down, we will give him IV beta-issa temporarily. Qualifiers: Hypertension type: primary hypertension Qualified Code(s): I10 - Essential (primary) hypertension - Lab Results Fish Bones: 08/18/20 18:52 08/18/20 20:25 Core Measures - Anticipated LOS I expect patient to be DC'd or transferred within 96 hours.: Yes - DVT/VTE - Prophylaxis VTE/DVT Device ordered at admit?: Yes
[2020-08-18] MEDS ORDERED: MAGNESIUM SULFATE 2 GRAM 2 GM/50 ML BAG IV ONE (20:18)
[2020-08-18] MEDS ORDERED: METOPROLOL 5 MG/5 ML VIAL IVP PRN (20:18)
[2020-08-18] MEDS ORDERED: THIAMINE 100 MG/1 ML 2 ML MDV ONE (20:39)
[2020-08-18 20:46] LABS: ALBUMIN 5.1 g/dL (3.2-5.5); ALBUMIN/GLOBULIN RATIO 1.5 (1.0-2.2); BILIRUBIN,TOTAL 2.8 mg/dL (0.2-1.0); CALCIUM 8.3 mg/dL (8.5-10.3); CREATININE 1.3 mg/dL (0.6-1.2); POTASSIUM 5.4 mmol/L (3.5-5.0); TOTAL PROTEIN 8.6 g/dL (6.7-8.2)
[2020-08-18] MEDS: chlordiazePOXIDE 25 MG CAPSULE PO SCH (20:58)
[2020-08-18] MEDS ORDERED: SODIUM CHLORIDE 0.9% 1,000 ML IV ONE (21:02)
[2020-08-18 21:05] LABS: B. PARAPERTUSSIS- RESP PCR PAN NOT DETECTED; B. PERTUSSIS- RESP PCR PANEL NOT DETECTED; C. PNEUMONIAE- RESP PCR PANEL NOT DETECTED; CORONAVIRUS 229E-RESP PCR NOT DETECTED; CORONAVIRUS HKU1-RESP PCR NOT DETECTED; CORONAVIRUS NL63-RESP PCR NOT DETECTED; CORONAVIRUS OC43-RESP PCR NOT DETECTED; HUMAN METAPNEUMOVIRUS NOT DETECTED; INFLUENZA A- RESP PCR PANEL NOT DETECTED; INFLUENZA B - RESP PCR PANEL NOT DETECTED; M. PNEUMONIAE- RESP PCR PANEL NOT DETECTED; PARAINFLUENZA VIRUS 1 NOT DETECTED; PARAINFLUENZA VIRUS 2 NOT DETECTED; PARAINFLUENZA VIRUS 3 NOT DETECTED; PARAINFLUENZA VIRUS 4 NOT DETECTED; RHINOVIRUS/ENTEROVIRUS NOT DETECTED; RSV- RESP PCR PANEL NOT DETECTED; SARS-CoV-2 -RESP PCR PANEL NOT DETECTED
[2020-08-19] MEDS: SODIUM CHLORIDE FLUSH 0.9% 10 ML SYRINGE IVP SCH ×2 (01:20→07:55)
[2020-08-19 03:27] LABS: MUDS CUTOFF CONCENTRATIONS CUTOFF CONC BELOW:
[2020-08-19 03:38] LABS: AMPHETAMINE SCREEN,URINE NEGATIVE (NEGATIVE); BARBITURATE SCREEN,UR NEGATIVE (NEGATIVE); BENZODIAZEPINES SCREEN, URINE POSITIVE (NEGATIVE); COCAINE SCREEN URINE NEGATIVE (NEGATIVE); METHADONE SCREEN, URINE NEGATIVE (NEGATIVE); METHAMPHETAMINES SCREEN, URINE NEGATIVE (NEGATIVE); OPIATE SCREEN, URINE NEGATIVE (NEGATIVE); OXYCODONE SCREEN, URINE NEGATIVE (NEGATIVE); PROPOXYPHENE SCREEN, URINE NEGATIVE (NEGATIVE); THC CANNABINOID SCREEN, URINE POSITIVE (NEGATIVE); TRICYCLIC ANTIDEPRESSANT,URINE NEGATIVE (NEGATIVE)
[2020-08-19] MEDS: chlordiazePOXIDE 25 MG CAPSULE PO SCH ×2 (05:15→07:51)
[2020-08-19 06:35] LABS: HCT - HEMATOCRIT 36.7 % (42.0-52.0); HGB - HEMOGLOBIN 12.4 g/dL (14.0-18.0); LYMPHOCYTES # (AUTO) 0.6 10^3/uL (1.5-3.5); LYMPHOCYTES % (AUTO) 10.8 %; MEAN CORPUSCULAR HEMOGLOBIN 33.6 pg (27.0-31.0); MEAN CORPUSCULAR HGB CONC 33.8 g/dL (32.0-36.0); MEAN CORPUSCULAR VOLUME 99.5 fL (80.0-94.0); MEAN PLATELET VOLUME 9.9 fL (7.4-11.4); MONOCYTES # (AUTO) 0.9 10^3/uL (0.0-1.0); MONOCYTES % (AUTO) 16.7 %; NEUTROPHILS # (AUTO) 3.9 10^3/uL (1.5-6.6); NEUTROPHILS % (AUTO) 72.1 %; PLT - PLATELET COUNT 80 10^3/uL (130-450); RED BLOOD COUNT 3.69 10^6/uL (4.70-6.10); RED CELL DISTRIBUTION WIDTH 13.1 % (12.0-15.0); WHITE BLOOD COUNT 5.5 x10^3/uL (4.8-10.8)
[2020-08-19 06:53] LABS: ALBUMIN 4.3 g/dL (3.2-5.5); BILIRUBIN,DIRECT 0.4 mg/dL (0.1-0.5); BILIRUBIN,TOTAL 2.4 mg/dL (0.2-1.0); MAGNESIUM 2.4 mg/dL (1.7-2.8); PHOSPHORUS 1.4 mg/dL (2.5-4.6); TOTAL PROTEIN 7.2 g/dL (6.7-8.2)
[2020-08-19 08:37] LABS: CALCIUM 8.4 mg/dL (8.5-10.3); POTASSIUM 4.3 mmol/L (3.5-5.0)
[2020-08-19] MEDS ORDERED: NEUTRA-PHOS 250 MG TABLET PO SCH (10:00)
--- NOTE | 2020-08-19 10:17 | Discharge Plan ---
Discharge Plan Problem Reviewed?: Yes Disposition: Home, Self Care Condition: Stable Prescriptions: Ondansetron Odt [Zofran Odt] 4 mg TL Q6H PRN #5 tablet PRN Reason: Nausea / Vomiting Diet: Cardiac Activity Restrictions: Activity as Tolerated Health Concerns: You were admitted to the hospital due to nausea and vomiting which caused you to have limited food intake which affected your kidney numbers a little bit and cause acid to build up in your body. We treated you with IV fluids with improvement in your blood work. You are also now able to tolerate a diet. You are stable for discharge and so we will be sending you home. Plan of Treatment: Please continue to take your medications as previously prescribed. I have provided you with a prescription for Zofran to take as needed for nausea. Please continue to follow-up with [facility] for your history of alcohol use. Care Goals: The goal is to continue to treat your history of alcohol use and to prevent recurrent episodes of this nausea and vomiting. Assessment: The patient expressed understanding of the treatment plan. Additional Instructions or Follow Up instructions: Please continue to follow-up with the [facility]. It is also recommended that you follow-up with your primary care provider in 1 to 2-weeks. No Smoking: If you smoke, Please STOP! Call for help. Follow-up with: Wojciech Cevallos DO [Primary Care Provider] -
--- NOTE | 2020-08-19 10:20 | DISCHARGE SUMMARY ---
"Discharge Summary Admit Date: 08/18/20 Discharge Date: 08/19/20 Discharging Provider: Oscar Ahumada Primary Care Provider: Wojciech Cevallos Code Status: Attempt Resuscitation Condition at Discharge: Stable Discharge Disposition: 01 Home, Self Care - DIAGNOSES Admission Diagnoses: Alcoholic ketoacidosis Alcohol withdrawal Dehydration Elevated liver enzymes Hyperkalemia Acute kidney injury Hypertension Discharge Diagnoses with Status of Each Condition: Starvation ketoacidosis - resolved. Elevated liver enzymes - improved. Hyperkalemia - resolved. Acute kidney injury - resolved. Hypertension - stable. History of alcohol abuse - stable. Thrombocytopenia - stable - HPI History of Present Illness: H&P per Dr. Baig: 69-year-old white male who has a history of alcohol abuse and previous history of alcoholic ketoacidosis and alcohol withdrawal. He was seen in the emergency room January 2020 with dizziness, possible worsening of an old stroke and he was found to be intoxicated. He was seen again in the ER April 12, 2020 for nausea vomiting and dehydration. She was placed in observation for dehydration and hyperkalemia. He was then admitted again July 26, 2020 with another episode of nausea, vomiting for 2 days. He had stopped drinking 2 days prior to admission and felt horrible. CIWA protocol was initiated, and he was able to be discharged the next day. He was scheduled to go into alcohol treatment program July 30. He says that he is going 3 days a week at [facility]. He is kind of depressed because his girlfriend left him. She was tired of his drinking. But he is defensive and telling me that she has her own problems such as smoking too much, doing too much marijuana so he does not understand what her complaint is about. He now returns with generalized abdominal pain, vomiting. He was dry for about a week and then drank yesterday. He states he only had 1 small bottle of vodka along with a hamburger yesterday. A few hours later he started having nausea, vomiting, generalized abdominal pain. No diarrhea, no vomiting of blood, no blood in his stool. He denies fever, chills, change in the color of his stool. In the emergency room with Dr. Menard temperature was 36.6. Heart rate 128. Respirations 20, blood pressure 151/97 and 96% on room air. He was tremulous, hypertensive, tachycardic and alert and oriented in the emergency room. Other than the tachycardia, cardiac and respiratory exam was negative. Abdominal exam was negative. Venous pH was 7.138. Alcohol level was less than 5. Moderate serum ketones. Potassium was 5.5, BUN 19, creatinine 1.6. Random glucose 265. Total bili 2.9, AST 163, ALT 103. White cell count is 8.9 with a hemoglobin of 15.3. He is now placed in observation again for alcoholic ketoacidosis and possible alcohol withdrawal. He is already received thiamine in the emergency room. - CONSULTS | PROCEDURES Consultations: Social Work - HOSPITAL COURSE Hospital Course: He was admitted for nausea and vomiting which was believed secondary to alcohol ketoacidosis. He was treated with IV fluids and antiemetics with improvement in his symptoms. The following morning his anion gap has improved and is now nearly within normal limits. His bicarbonate is also significantly improved. His mild acute kidney injury has resolved with IV fluids. He is tolerating a diet without further nausea or vomiting. He states he is follows with the [facility] clinic for his alcohol use and although he did have one alcoholic beverage this past , he has limited his use significantly and he is due for monthly injection of naltrexone next week. It is likely that his alcoholic ketoacidosis was secondary to starvation ketoacidosis given he had poor oral intake over the past few days. His LFTs were mildly elevated but these improved on a daily basis. This is likely secondary to his alcohol use. He was encouraged to discontinue all alcohol products and he was prescribed Zofran to take as needed for nausea. - ALLERGIES Allergies/Adverse Reactions: Allergies Allergy/AdvReac Type Severity Reaction Status Date / Time No Known Drug Allergies Allergy Verified 08/18/20 18:24 - MEDICATIONS Home Medications: Ambulatory Orders Medication Instructions Recorded Confirmed Aspirin Chewable [St Anderson 81 mg PO DAILY 01/02/20 07/26/20 Aspirin] Atorvastatin [Lipitor] 20 mg PO DAILY #30 tablet 01/03/20 07/26/20 lisinopriL [Prinivil] 5 mg PO DAILY 01/03/20 07/26/20 Pnv No.95/Ferrous Fum/Folic AC 1 each PO DAILY #30 tablet 04/13/20 07/26/20 [ Tablet] Thiamine [Vitamin B-1] 100 mg PO DAILY #30 tablet 04/13/20 07/26/20 Ondansetron Odt [Zofran Odt] 4 mg TL Q6H PRN #5 tablet 08/19/20 - PHYSICAL EXAM AT DISCHARGE General Appearance: positive: No acute distress, Alert Eyes Bilateral: positive: Normal inspection ENT: positive: ENT inspection nml Neck: positive: Nml inspection Respiratory: positive: No respiratory distress. negative: Wheezes, Rales Cardiovascular: positive: Regular rate & rhythm, No murmur. negative: Tachycardia Abdomen: positive: Non-tender, No distention. negative: Tenderness Skin: positive: Warm, Dry Extremities: positive: No pedal edema Neurologic/Psychiatric: positive: Motor nml. negative: Disoriented to person, D isoriented to place Physical Exam Other/Comments: Vital Signs - 24 hr 08/18/20 08/18/20 08/18/20 18:19 19:15 20:51 Temperature 36.6 C 36.5 C 36.7 C Heart Rate 128 H 109 H Heart Rate [ 115 H Brachial] Respiratory 20 18 20 Rate Blood Pressure 151/97 H 156/92 H Blood Pressure 160/89 H [Right Brachial artery] O2 Saturation 96 98 98 08/18/20 08/18/20 08/18/20 22:35 22:38 22:46 Temperature Heart Rate Heart Rate [ 113 H 80 Brachial] Respiratory Rate Blood Pressure 153/89 H Blood Pressure 143/91 H [Right Brachial artery] O2 Saturation 08/18/20 08/19/20 08/19/20 22:55 00:10 05:05 Temperature 36.9 C 36.9 C Heart Rate Heart Rate [ 87 98 90 Brachial] Respiratory 16 16 Rate Blood Pressure 128/84 H Blood Pressure 128/84 H 134/82 H 132/78 H [Right Brachial artery] O2 Saturation 97 97 08/19/20 08/19/20 08/19/20 05:23 07:37 10:45 Temperature 36.7 C 37.1 C 36.8 C Heart Rate 80 Heart Rate [ 86 86 Brachial] Respiratory 20 16 16 Rate Blood Pressure Blood Pressure 116/77 116/71 [Right Brachial artery] O2 Saturation 98 98 96 Oxygen O2 Source Room air - LABS Result Diagrams: 08/19/20 06:29 08/19/20 08:21 - FOLLOW UP Follow Up: He was asked to continue to follow-up with [facility] and to follow-up with his primary care provider in 1 to 2-weeks. - TIME SPENT Time Spent in Discharge (Minutes): 31"
[2020-08-19 10:45] VITALS: BP 116/71
[2020-08-19] MEDS ORDERED: MULTIVITAMIN 10 ML, THIAMINE INJ 100 MG, FOLIC ACID INJ 1 MG in SODIUM CHLORIDE 0.9% 1,... IV SCH (17:00)
== END 2020-08-19 12:00 | disposition home or self-care (01) ==
LOC: ED 18:16 → MS2 20:01
PROVIDERS: ADMIT Specialist; ATTEND Internal Medicine
DX: E87.2 Acidosis (principal); F10.230 Alcohol dependence with withdrawal, uncomplicated; E87.5 Hyperkalemia; N17.9 Acute kidney failure, unspecified; I10 Essential (primary) hypertension; D69.6 Thrombocytopenia, unspecified; I25.10 Atherosclerotic heart disease of native coronary artery without angina pectoris; E86.0 Dehydration; K76.0 Fatty (change of) liver, not elsewhere classified; Z20.822 Contact with and (suspected) exposure to COVID-19
CPT/HCPCS: 36415; 80048; 80053; 80076; 80306; 82009; 82803; 83690; 83735; 84100; 85025; 87631; 96361; 96365; 96366; 96368; 96375; 99284; 99285; A9270; G0378; G0480; J2060; 0202U; 80320

== ENCOUNTER 2020-10-13 23:09 | Outpatient (CLI) | payer MEDICARE, MEDICAID | END 2020-10-13 23:10 | disposition critical access hospital (66) | LOC: EMS 23:09 | DX: K92.0 Hematemesis (principal); K92.1 Melena | CPT/HCPCS: A0425; A0429 ==

== ENCOUNTER 2020-10-13 23:24 | Inpatient (IN) | payer MEDICARE, MEDICAID ==
--- NOTE | 2020-10-13 23:45 | ED Physician Documentation ---
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 Patient has h/o alcoholism and was admitted to [facility] twice over past 3 months (once in July, again in August) for alcoholic ketoacidosis. 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 Since this morning, he has had nausea with increasingly frequent vomiting, with some episodes having a coffee-ground appearance. He denies any pain including abdominal pain. 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 He denies having h/o similar palpitations. EMS notes rapid atrial fibrillation with rates as high as 170s but without hypotension and no chest pain or discomfort Review of Systems Constitutional: reports: Reviewed and negative Eyes: reports: Reviewed and negative Ears: reports: Reviewed and negative Nose: reports: Reviewed and negative Throat: reports: Reviewed and negative Cardiac: reports: Palpitations. denies: Chest pain / pressure, Pedal edema, Calf pain Respiratory: reports: Dyspnea (mild dyspnea on exertion since the rapid palpitations began 2 hours ago). denies: Cough, Hemoptysis, Wheezing GI: reports: Nausea, Vomiting. denies: Abdominal Pain, Abdominal Swelling, Constipation, Diarrhea : denies: Dysuria, Frequency Skin: reports: Reviewed and negative Musculoskeletal: reports: Reviewed and negative Neurologic: reports: Reviewed and negative PD PAST MEDICAL HISTORY - Past Medical History Past Medical History: Yes Cardiovascular: Hypertension, High cholesterol, Coronary artery disease, [place] Respiratory: None Neuro: CVA, Other Endocrine/Autoimmune: None GI: None : None HEENT: None Psych: Depression, Anxiety Musculoskeletal: Osteoarthritis, Chronic back pain, Other Derm: None - Past Surgical History Past Surgical History: Yes General: Other - Present Medications Home Medications: Ambulatory Orders Medication Instructions Recorded Confirmed Aspirin Chewable [St Anderson 81 mg PO DAILY 01/02/20 10/13/20 Aspirin] Atorvastatin [Lipitor] 20 mg PO DAILY #30 tablet 01/03/20 10/13/20 lisinopriL [Prinivil] 10 mg PO DAILY 01/03/20 10/13/20 Pnv No.95/Ferrous Fum/Folic AC 1 each PO DAILY #30 tablet 04/13/20 10/13/20 [ Tablet] Thiamine [Vitamin B-1] 100 mg PO DAILY #30 tablet 04/13/20 10/13/20 - Allergies Allergies/Adverse Reactions: Allergies Allergy/AdvReac Type Severity Reaction Status Date / Time No Known Drug Allergies Allergy Verified 10/13/20 23:28 - Social History Does the pt smoke?: No Smoking Status: Never smoker Does the pt drink ETOH?: Yes ETOH Use: Liquor Does the pt have substance abuse?: No - Immunizations Immunizations are current?: Yes - POLST Patient has POLST: No POLST Status: Full Code PD ED PE NORMAL - Vitals Vital signs reviewed: Yes - General General: Alert and oriented X 3, No acute distress, Well developed/nourished - HEENT HEENT: Other (tacky/pasty mucous membranes) - Neck Neck: Supple, no meningeal sign - Respiratory Respiratory: No respiratory distress, Clear bilaterally - Abdomen Abdomen: Soft, Non tender, Non distended - Derm Derm: Normal color, Warm and dry - Extremities Extremities: No edema - Neuro Neuro: Alert and oriented X 3 PD ED PE EXPANDED - Cardiac Cardiac: Tachy, Irregularly irregular Results - Vitals Vitals: Vital Signs - 24 hr 10/13/20 10/13/20 10/13/20 23:28 23:48 23:52 Temperature 36.5 C Heart Rate 180 H 176 H 174 H Respiratory 20 20 22 Rate Blood Pressure 150/91 H 149/89 H 149/89 H O2 Saturation 97 97 98 10/14/20 10/14/20 10/14/20 00:02 00:06 00:22 Temperature 36.0 C L Heart Rate 165 H 125 H 188 H Respiratory 15 13 22 Rate Blood Pressure 163/94 H 109/70 125/73 O2 Saturation 98 97 99 10/14/20 10/14/20 10/14/20 00:27 00:32 00:48 Temperature 35.7 C L Heart Rate 122 H 124 H 126 H Respiratory 19 20 19 Rate Blood Pressure 127/70 132/71 H 132/71 H O2 Saturation 100 99 100 10/14/20 10/14/20 10/14/20 00:55 01:11 01:32 Temperature Heart Rate 126 H 126 H 120 H Respiratory 20 21 18 Rate Blood Pressure 132/71 H 138/74 H 140/82 H O2 Saturation 100 99 100 Oxygen O2 Source Room air - EKG (time done) #1 Rate: Rate (enter#) (184) Rhythm: Atrial fibrillation Ischemia: Q waves (V1-V3) #2 Rate: Rate (enter#) (128) Rhythm: Sinus tachycardia Cass: Other (borderline LAD) Ischemia: Q waves (V1-V3) Compare to prior EKG: Unchanged from prior EKG (similar morphology to 04/12/20 including Q waves (rate was normal on the previous EKG, but otherwise no significant changes noted)) Computer interpretation: Disagree with computer (no convincing ST elevations) - Labs Labs: Laboratory Tests 10/13/20 10/13/20 10/13/20 23:55 23:55 23:55 WBC 17.8 H RBC 4.60 L Hgb 15.0 Hct 48.6 MCV 105.7 H MCH 32.6 H MCHC 30.9 L RDW 14.2 Plt Count 184 MPV 9.8 Neut # (Auto) 16.1 H Lymph # (Auto) 0.6 L [place] # (Auto) 0.8 Eos # (Auto) 0.1 Baso # (Auto) 0.1 Absolute Nucleated RBC 0.00 Nucleated RBC % 0.0 VBG pH VBG pCO2 VBG pO2 VBG HCO3 VBG Total CO2 VBG O2 Saturation VBG Base Excess Sodium 145 Potassium 5.4 H Chloride 101 Carbon Dioxide < 6 L* Anion Gap 39.0 H BUN 18 Creatinine 1.5 H Estimated GFR (MDRD) 46 L Glucose 121 H Calcium 8.9 Total Bilirubin 1.6 H AST 71 H ALT 47 Alkaline Phosphatase 109 Troponin I High Sens 13.3 Total Protein 9.1 H Albumin 5.1 Globulin 4.0 Albumin/Globulin Ratio 1.3 Lipase 49 Urine Color Urine Clarity Urine pH Ur Specific [place] Urine Protein Urine Glucose (UA) Urine Ketones Urine Occult Blood Urine Nitrite Urine Bilirubin Urine Urobilinogen Ur Leukocyte Esterase Urine RBC Urine WBC Ur Squamous Epith Cells Urine Bacteria Urine Casts Urine Mucus Ur Microscopic Review Urine Culture Comments Nasal Adenovirus (PCR) Nasal B. parapertussis DNA (PCR) Nasal Coronavir 229E PCR Nasal Coronavir HKU1 PCR Nasal Coronavir NL63 PCR Nasal Coronavir OC43 PCR Nasal Enterovir/Rhinovir PCR Nasal Influenza B PCR Nasal Influenza A PCR Nasal Parainfluen 1 PCR Nasal Parainfluen 2 PCR Nasal Parainfluen 3 PCR Nasal Parainfluen 4 PCR Nasal RSV (PCR) Nasal B.pertussis DNA PCR Nasal C.pneumoniae (PCR) Brett Human Metapneumo PCR Nasal M.pneumoniae (PCR) Nasal SARS-CoV-2 (PCR) Serum Ketones 10/13/20 10/14/20 10/14/20 23:55 00:24 01:27 WBC RBC Hgb Hct MCV MCH MCHC RDW Plt Count MPV Neut # (Auto) Lymph # (Auto) [place] # (Auto) Eos # (Auto) Baso # (Auto) Absolute Nucleated RBC Nucleated RBC % VBG pH 7.025 L VBG pCO2 26.4 L VBG pO2 52.8 H VBG HCO3 6.7 L VBG Total CO2 7.6 L VBG O2 Saturation 79.8 VBG Base Excess -22.9 L Sodium Potassium Chloride Carbon Dioxide Anion Gap BUN Creatinine Estimated GFR (MDRD) Glucose Calcium Total Bilirubin AST ALT Alkaline Phosphatase Troponin I High Sens Total Protein Albumin Globulin Albumin/Globulin Ratio Lipase Urine Color Urine Clarity Urine pH Ur Specific [place] Urine Protein Urine Glucose (UA) Urine Ketones Urine Occult Blood Urine Nitrite Urine Bilirubin Urine Urobilinogen Ur Leukocyte Esterase Urine RBC Urine WBC Ur Squamous Epith Cells Urine Bacteria Urine Casts Urine Mucus Ur Microscopic Review Urine Culture Comments Nasal Adenovirus (PCR) NOT DETECTED Nasal B. parapertussis DNA (PCR) NOT DETECTED Nasal Coronavir 229E PCR NOT DETECTED Nasal Coronavir HKU1 PCR NOT DETECTED Nasal Coronavir NL63 PCR NOT DETECTED Nasal Coronavir OC43 PCR NOT DETECTED Nasal Enterovir/Rhinovir PCR NOT DETECTED Nasal Influenza B PCR NOT DETECTED Nasal Influenza A PCR NOT DETECTED Nasal Parainfluen 1 PCR NOT DETECTED Nasal Parainfluen 2 PCR NOT DETECTED Nasal Parainfluen 3 PCR NOT DETECTED Nasal Parainfluen 4 PCR NOT DETECTED Nasal RSV (PCR) NOT DETECTED Nasal B.pertussis DNA PCR NOT DETECTED Nasal C.pneumoniae (PCR) NOT DETECTED Brett Human Metapneumo PCR NOT DETECTED Nasal M.pneumoniae (PCR) NOT DETECTED Nasal SARS-CoV-2 (PCR) NOT DETECTED Serum Ketones SMALL H 10/14/20 01:47 WBC RBC Hgb Hct MCV MCH MCHC RDW Plt Count MPV Neut # (Auto) Lymph # (Auto) [place] # (Auto) Eos # (Auto) Baso # (Auto) Absolute Nucleated RBC Nucleated RBC % VBG pH VBG pCO2 VBG pO2 VBG HCO3 VBG Total CO2 VBG O2 Saturation VBG Base Excess Sodium Potassium Chloride Carbon Dioxide Anion Gap BUN Creatinine Estimated GFR (MDRD) Glucose Calcium Total Bilirubin AST ALT Alkaline Phosphatase Troponin I High Sens Total Protein Albumin Globulin Albumin/Globulin Ratio Lipase Urine Color YELLOW Urine Clarity CLEAR Urine pH 5.5 Ur Specific [place] >=1.030 H Urine Protein 100 H Urine Glucose (UA) NEGATIVE Urine Ketones >=80 H Urine Occult Blood MODERATE H Urine Nitrite NEGATIVE Urine Bilirubin NEGATIVE Urine Urobilinogen 0.2 (NORMAL) Ur Leukocyte Esterase NEGATIVE Urine RBC 6-10 H Urine WBC 0-3 Ur Squamous Epith Cells NONE SEEN Urine Bacteria Rare Urine Casts 11-25 Hyaline Casts Urine Mucus Moderate Strands Ur Microscopic Review INDICATED Urine Culture Comments NOT INDICATED Nasal Adenovirus (PCR) Nasal B. parapertussis DNA (PCR) Nasal Coronavir 229E PCR Nasal Coronavir HKU1 PCR Nasal Coronavir NL63 PCR Nasal Coronavir OC43 PCR Nasal Enterovir/Rhinovir PCR Nasal Influenza B PCR Nasal Influenza A PCR Nasal Parainfluen 1 PCR Nasal Parainfluen 2 PCR Nasal Parainfluen 3 PCR Nasal Parainfluen 4 PCR Nasal RSV (PCR) Nasal B.pertussis DNA PCR Nasal C.pneumoniae (PCR) Brett Human Metapneumo PCR Nasal M.pneumoniae (PCR) Nasal SARS-CoV-2 (PCR) Serum Ketones - Rads (name of study) chest xray Radiology: Prelim report reviewed, See rad report PD MEDICAL DECISION MAKING - ED course Complexity details: reviewed old records, reviewed results, re-evaluated patient, considered differential, d/w patient ED course: presents with new onset atrial fibrillation with markedly rapid ventricular response, as high as 180s in ED. despite this, he has blood pressures that are mildly elevated initially, improve to normotensive with converstion to ST which is achieved after two doses of 15mg IV cardizem. His other emergent problem is reoccurence of alcoholic ketoacidosis with CO2 <6, ph (on VBG) 7.02, potassium 5.4, small serum ketones, and anion gap of 39, blood sugar 121. He is given 2 liters NS IV in ED and admitted to hospitalist service (Dr. Baig) for management of his alcoholic ketoacidosis and further monitoring of ongoing ST (heart rate 120s despite IV fluids) after having converted from MARIE Departure - Departure Disposition: ED Place in Observation Clinical Impression: Alcoholic ketoacidosis, Rapid atrial fibrillation Condition: Stable Discharge Date/Time: 10/14/20 02:30
[2020-10-13] MEDS ORDERED: SODIUM CHLORIDE 0.9% 1,000 ML IV STA (23:55)
[2020-10-13] MEDS ORDERED: diltiaZEM INJ 5 MG/ML VIAL IVP STA (23:56)
[2020-10-13 23:59] LABS: BASOPHILS # (AUTO) 0.1 10^3/uL (0.0-0.1); BASOPHILS % (AUTO) 0.3 %; EOSINOPHILS # (AUTO) 0.1 10^3/uL (0.0-0.7); EOSINOPHILS % (AUTO) 0.4 %; HCT - HEMATOCRIT 48.6 % (42.0-52.0); LYMPHOCYTES # (AUTO) 0.6 10^3/uL (1.5-3.5); LYMPHOCYTES % (AUTO) 3.5 %; MEAN CORPUSCULAR HEMOGLOBIN 32.6 pg (27.0-31.0); MEAN CORPUSCULAR HGB CONC 30.9 g/dL (32.0-36.0); MEAN CORPUSCULAR VOLUME 105.7 fL (80.0-94.0); MEAN PLATELET VOLUME 9.8 fL (7.4-11.4); MONOCYTES # (AUTO) 0.8 10^3/uL (0.0-1.0); MONOCYTES % (AUTO) 4.5 %; NEUTROPHILS # (AUTO) 16.1 10^3/uL (1.5-6.6); NEUTROPHILS % (AUTO) 90.6 %; PLT - PLATELET COUNT 184 10^3/uL (130-450); RED CELL DISTRIBUTION WIDTH 14.2 % (12.0-15.0); WHITE BLOOD COUNT 17.8 x10^3/uL (4.8-10.8)
[2020-10-14 00:14] LABS: ALBUMIN 5.1 g/dL (3.2-5.5); ALBUMIN/GLOBULIN RATIO 1.3 (1.0-2.2); ALKALINE PHOSPHATASE 109 IU/L (42-121); ALT ALANINE AMINOTRANSFERASE 47 IU/L (10-60); AST ASPARTATE AMINOTRANSFERASE 71 IU/L (10-42); BILIRUBIN,TOTAL 1.6 mg/dL (0.2-1.0); BUN - BLOOD UREA NITROGEN 18 mg/dL (6-20); CALCIUM 8.9 mg/dL (8.5-10.3); CHLORIDE 101 mmol/L (101-111); CREATININE 1.5 mg/dL (0.6-1.2); GFR - MDRD 46 (>89); GLUCOSE 121 mg/dL (70-100); LIPASE 49 U/L (22-51); POTASSIUM 5.4 mmol/L (3.5-5.0); SODIUM 145 mmol/L (135-145); TOTAL PROTEIN 9.1 g/dL (6.7-8.2)
[2020-10-14 00:15] LABS: CARBON DIOXIDE - CO2 < 6 mmol/L (21-32)
[2020-10-14] MEDS ORDERED: diltiaZEM INJ 5 MG/ML VIAL IVP STA (00:17)
[2020-10-14] MEDS ORDERED: SODIUM CHLORIDE 0.9% 1,000 ML IV STA (00:18)
[2020-10-14 00:30] LABS: VBG BASE EXCESS -22.9 mmol/L (-2 - +2); VBG HCO3 6.7 mmol/L (23-28); VBG OXYGEN SATURATION 79.8 % (60-80); VBG PCO2 26.4 mmHg (41-51); VBG PH 7.025 (7.31-7.41); VBG PO2 52.8 mmHg (25-47); VBG TOTAL CO2 7.6 mmol/L (24-29)
[2020-10-14] MEDS ORDERED: ONDANSETRON 4 MG/2 ML VIAL IVP STA (00:34)
[2020-10-14] MEDS ORDERED: ONDANSETRON 4 MG/2 ML VIAL ONE (00:39)
[2020-10-14] MEDS ORDERED: PROCHLORPERAZINE 10 MG/2 ML VIAL IVP PRN (01:48)
[2020-10-14] MEDS ORDERED: ONDANSETRON ODT 4 MG TABLET TL PRN (01:48)
[2020-10-14] MEDS ORDERED: SODIUM CHLORIDE FLUSH 0.9% 10 ML SYRINGE IVP PRN (01:48)
[2020-10-14] MEDS ORDERED: ACETAMINOPHEN 325 MG TABLET PO PRN (01:48)
[2020-10-14] MEDS ORDERED: ONDANSETRON 4 MG/2 ML VIAL IVP PRN (01:48)
[2020-10-14] MEDS ORDERED: oxyCODONE 5 MG TABLET PO PRN (01:48)
[2020-10-14] MEDS ORDERED: METOPROLOL 5 MG/5 ML VIAL IVP PRN (01:50)
[2020-10-14 01:52] LABS: BILIRUBIN,URINE NEGATIVE (NEGATIVE); GLUCOSE, URINE (UA) NEGATIVE (NEGATIVE); KETONES,URINE (UA) >=80 mg/dL (NEGATIVE); LEUKOCYTE ESTERASE, URINE NEGATIVE (NEGATIVE); NITRITE,URINE NEGATIVE (NEGATIVE); OCCULT BLOOD,URINE MODERATE (NEGATIVE); PH,URINE 5.5 PH (5.0-7.5); PROTEIN,URINE 100 mg/dL (NEGATIVE); UROBILINOGEN,URINE 0.2 (NORMAL) E.U./dL (NORMAL)
[2020-10-14 01:53] LABS: CLARITY,URINE CLEAR (CLEAR)
[2020-10-14 01:58] LABS: BACTERIA,URINE Rare /HPF (None Seen); CASTS, URINE 11-25 Hyaline Casts /LPF; MUCUS,URINE Moderate Strands; SQUAMOUS EPITHELIAL CELL,UR NONE SEEN (<= Few); WBC,URINE 0-3 /HPF (0-3)
[2020-10-14] MEDS ORDERED: SODIUM CHLORIDE 0.9% 1,000 ML IV SCH (02:00)
[2020-10-14 02:23] LABS: B. PARAPERTUSSIS- RESP PCR PAN NOT DETECTED; B. PERTUSSIS- RESP PCR PANEL NOT DETECTED; C. PNEUMONIAE- RESP PCR PANEL NOT DETECTED; CORONAVIRUS 229E-RESP PCR NOT DETECTED; CORONAVIRUS HKU1-RESP PCR NOT DETECTED; CORONAVIRUS NL63-RESP PCR NOT DETECTED; CORONAVIRUS OC43-RESP PCR NOT DETECTED; HUMAN METAPNEUMOVIRUS NOT DETECTED; INFLUENZA A- RESP PCR PANEL NOT DETECTED; INFLUENZA B - RESP PCR PANEL NOT DETECTED; M. PNEUMONIAE- RESP PCR PANEL NOT DETECTED; PARAINFLUENZA VIRUS 1 NOT DETECTED; PARAINFLUENZA VIRUS 2 NOT DETECTED; PARAINFLUENZA VIRUS 3 NOT DETECTED; PARAINFLUENZA VIRUS 4 NOT DETECTED; RHINOVIRUS/ENTEROVIRUS NOT DETECTED; RSV- RESP PCR PANEL NOT DETECTED; SARS-CoV-2 -RESP PCR PANEL NOT DETECTED
--- NOTE | 2020-10-14 02:55 | HISTORY & PHYSICAL EXAMINATION ---
Chief Complaint - Chief Complaint Chief Complaint: abd pain w N/V History of Present Illness - Admitted From Admitted From:: home - History Obtained From Records Reviewed: [facility] History obtained from: patient and Dr. Terrazas Exam Limitations: none. - History of Present Illness HPI Comment/Other: Mr. Sylvester is a 70-year-old white male who has a history of chronic alcohol abuse and has been admitted in the past with alcoholic ketoacidosis, alcohol withdrawal associated with vomiting, generalized abdominal pain. His last admission for this was August 18. He says that was the last time he went through alcohol withdrawal. Previous ultrasound and CT abd imaging in April of this year do not show anything but alcoholic liver disease. He does not have varices nor does he have ascites. He was seen by Dr. Cevallos in follow-up. He was put on oral iron supplementation because of iron deficiency anemia. He is drinking abou t 3 small airline bottles of alcohol a day. He is seeing Carmelo Crowell for alcohol rehab counseling. His last drink was late in the evening of October 12. He now presents again with abdominal pain, nausea and vomiting. He is not sure but one of his episodes of emesis was associated with possible coffee grounds. He states that his stool is dark. He can't keep any food down. Eating makes the abd pain and nausea worse. Nonradiating and present over the epigastrium. Moving around doesn't make the pain worse. Last BM on Thursday and was dark but not liquid. Does have flatus. When he is admitted, starting hemoglobin is usually 15 or so. It then subsequently drops with IV hydration. With this e valuation in the emergency room hemoglobin is 15. He is with tachycardia that was found to be atrial fibrillation. Given diltiazem 15 mg IV push x2 doses and is converted to sinus rhythm but his pulse remains sinus tachycardia. Blood pressure has remained stable. Since he has been on MedSurg, he has had one episode of emesis. Abdominal pain has resolved. But he is shaky, tremulous. History - Past Medical History Cardiovascular: reports: Hypertension, High cholesterol, Coronary artery disease, [place] Respiratory: reports: None Neuro: reports: CVA, Other Endocrine/Autoimmune: reports: None GI: reports: None : reports: None HEENT: reports: None Psych: reports: Depression, Anxiety Musculoskeletal: reports: Osteoarthritis, Chronic back pain, Other Derm: reports: None MRSA Hx?: No - Past Surgical History General: reports: Other - Family & Social History Family History Comment/Other: Mom at age 73 of emphysema and was a ferocious cigarette smoker. Dad at age 67 of metastatic lung cancer and was also a smoker. 1 sister is 76 and healthy. One daughter has been smoking since the age of 14 and he worries about her getting emphysema. But no hypertension, diabetes, cancer, heart attack Living Situation: With spouse/s.o. Social History Notes: Born and raised in the [facility]. 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 Came to [facility] approximately 10 years ago with his girlfriend. She was born and raised in [place], and came back to take care of her mom. They moved in to her mom's house, and took care of her until she . He had been living with his girlfriend until recently. She got tired of his drinking, and she moved in with her sister. He never smoked cigarettes. 50 years ago, in the 70s he did speed a couple of times but he is never done heroin, LSD, cocaine. He does have a history of alcohol abuse. He is drinking up to half a pint of vodka a day sometimes. Started cutting back 5 years ago. Right now he is doing about a beer a day. once before. . His ex-girlfriend is Yvonne Morgan. He did regard her as his DURABLE POWER OF SPONSORSHIP COORDINATOR. But she left him so he doesn't know who to designate. I am also allowed to speak to his daughter, Saba Montelongo if need be. - Substance History Use: Uses substance without health or social issues: Alcohol - POLST Patient has POLST: No POLST Status: Full Code Meds/Allgy - Home Medications Home Medications: Ambulatory Orders Medication Instructions Recorded Confirmed Aspirin Chewable [St Anderson 81 mg PO DAILY 01/02/20 10/13/20 Aspirin] Atorvastatin [Lipitor] 20 mg PO DAILY #30 tablet 01/03/20 10/13/20 lisinopriL [Prinivil] 10 mg PO DAILY 01/03/20 10/13/20 Pnv No.95/Ferrous Fum/Folic AC 1 each PO DAILY #30 tablet 04/13/20 10/13/20 [ Tablet] Thiamine [Vitamin B-1] 100 mg PO DAILY #30 tablet 04/13/20 10/13/20 - Allergies Allergies/Adverse Reactions: Allergies Allergy/AdvReac Type Severity Reaction Status Date / Time No Known Drug Allergies Allergy Verified 10/13/20 23:28 Review of Systems - Constitutional Constitutional: reports: Fatigue, Malaise, Poor appetite - Eyes Eyes: reports: Vision loss. denies: Pain, Irritation, Amaurosis, Blurred vision - Ears, Nose & Throat Ears, Nose & Throat: reports: Bleeding gums, Dental decay. denies: Sore throat, Hoarseness - Cardiovascular Cariovascular: reports: Palpitations, Exertional dyspnea, Decr. exercise tolerance. denies: Edema, Lightheadedness, Syncope - Respiratory Respiratory: reports: Cough (All the time. Not new. Not changed.), Wheezing (Sometimes), SOB with exertion. denies: Sputum production - Gastrointestinal Gastrointestinal: reports: Abdominal pain, Abdominal distention, Black stools, Nausea, Vomiting, Coffee grounds emesis, Reflux/heartburn, Bloating - Genitourinary Genitourinary: denies: Dysuria, Frequency, Urgency, Hematuria, Incontinence, Flank pain - Musculoskeletal Musculoskeletal: reports: Muscle aches, Joint pain - Integumentary Integumentary: denies: Rash, Pruritis, Lesions, Dryness - Neurological Neurological: reports: General weakness, Memory problems. denies: Focal weakness, Pre-existing deficit, Abnormal gait - Psychiatric Psychiatric: reports: Depression, Anxiety. denies: Suicidal, Delusions, Hallucinations - Endocrine Endocrine: reports: Intolerance to cold. denies: Polyuria, Polydypsia, Polyphagia - Hematologic/Lymphatic Hematologic/Lymphatic: reports: Anemia, Bruising. denies: Petechiae, Blood clots, Lymphadenopathy, Bleeding tendencies Prior Level of Functionality: Able to dress himself, feed himself, and does light meat smoker. Does not use durable medical equipment. Exam - Vital Signs Reviewed Vital Signs: Yes Vital Signs: Vital Signs x48h Temp Pulse Resp BP Pulse Ox 10/14/20 02:14 36.8 C 119 H 22 142/78 H 98 10/14/20 01:32 120 H 18 140/82 H 100 10/14/20 01:11 126 H 21 138/74 H 99 10/14/20 00:55 126 H 20 132/71 H 100 10/14/20 00:48 35.7 C L 126 H 19 132/71 H 100 10/14/20 00:32 124 H 20 132/71 H 99 10/14/20 00:27 122 H 19 127/70 100 10/14/20 00:22 188 H 22 125/73 99 10/14/20 00:06 36.0 C L 125 H 13 109/70 97 10/14/20 00:02 165 H 15 163/94 H 98 10/13/20 23:52 174 H 22 149/89 H 98 10/13/20 23:48 176 H 20 149/89 H 97 10/13/20 23:28 36.5 C 180 H 20 150/91 H 97 - Physical Exam General Appearance: positive: Alert, Mild distress (Tremulous, with a large amount of liquid emesis that was black right before I examined him) Eyes Bilateral: positive: PERRL, EOMI ENT: positive: No signs of dehydration, Other (Very poor dentition.) Neck: positive: No JVD, Lymphadenopathy (R), Lymphadenopathy (L). negative: Stiff neck Respiratory: positive: No respiratory distress. negative: Wheezes, Rales, Rhonchi Cardiovascular: positive: Regular rate & rhythm, Tachycardia, Systolic murmur. negative: Gallop/S4, Friction rub Peripheral Pulses: positive: 1+ Abdomen: positive: Nml bowel sounds, Tenderness (Mild and diffuse. Seems to be a little bit worse in the right upper quadrant and epigastrium.), Other (Liver edge palpable). negative: Guarding, Rebound Skin: positive: Warm, Dry Extremities: positive: Full ROM, No pedal edema Neurologic/Psychiatric: positive: Oriented x3, CN's nml (2-12). negative: Motor nml (Resting tremor, tremulous, lip tremor) Conclusion/Plan - Problem List (1) Alcoholic ketoacidosis Conclusion/Plan: This is very similar to his previous presentations. With nausea, vomiting, abdominal pain. Some of those presentations resulted in evaluation and treatment in the emergency room and he can go home. He will be kept in the hospital because of the severity of acidosis.At this time not felt to have pancreatitis. Plan: Control of nausea and vomiting IV hydration Banana bag to start in the morning (2) Alcoholism Conclusion/Plan: He is tremulous. Has a previous history of withdrawal. Last withdrawal was in August. Plan: [facility] protocol Banana bag (3) New onset atrial fibrillation Conclusion/Plan: Atrial fibrillation is not new for him. He had an echocardiogram done in December 2019 which showed ejection fraction of 55%. The left atrium was not well visualized. Pulmonary pressure could not be measured. Right ventricle was normal in size and function. Initial troponin is been negative. I suspect the atrial fibrillation is due to electrolyte disturbance and his history of alcoholism. Plan: TSH in the morning with morning labs Repeat echocardiogram No need for anticoagulation Lopressor as needed for rate control (4) Hypertension Conclusion/Plan: At home on lisinopril 10 mg daily. While in the emergency room and upon transfer to [facility] he is 1 38-1 42 systolic. Resume lisinopril in the morning. Qualifiers: Hypertension type: primary hypertension Qualified Code(s): I10 - Essential (primary) hypertension (5) Hematemesis with nausea Conclusion/Plan: Visualization of the fluid that he is vomiting definitely confirms that it is black. But there is no solid constituents at all. There is no blood in it. This may be his oral supplementation iron as the cause of the change in coloration. Nevertheless treat as a GI bleed in a patient who has known alcoholism and takes a nonsteroidal therapy. Plan: Follow-up hemograms every 8 hours Proton pump inhibitor I am not concerned that he has esophageal varices because relatively recent imaging confirms he does not have a history of varices Surgery consult if hemoglobin does drop significantly (6) Elevated white blood cell count Conclusion/Plan: Preliminary chest x-ray report shows no acute cardiopulmonary findings. We will continue to monitor for signs and symptoms of infection. Although he has mild generalized abdominal pain in the emergency room, that has resolved while on [facility]. This may just be leukemoid reaction. Qualifiers: Leukocytosis type: unspecified Qualified Code(s): D72.829 - Elevated white blood cell count, unspecified - Lab Results Lab results reviewed: Yes Fish Bones: 10/13/20 23:55 10/13/20 23:55 - Diagnostic Imaging Results Diagnostic Imaging Results: positive: Prelim report reviewed (Chest x-ray without acute cardiopulmonary process) Core Measures - Anticipated LOS I expect patient to be DC'd or transferred within 96 hours.: Yes - DVT/VTE - Prophylaxis VTE/DVT Device ordered at admit?: Yes
[2020-10-14] MEDS ORDERED: LORazepam 1 MG TABLET PO PRN (04:18)
[2020-10-14 05:42] LABS: BASOPHILS % (AUTO) 0.2 %; HGB - HEMOGLOBIN 13.2 g/dL (14.0-18.0); LYMPHOCYTES # (AUTO) 0.5 10^3/uL (1.5-3.5); LYMPHOCYTES % (AUTO) 4.1 %; MEAN CORPUSCULAR HEMOGLOBIN 32.5 pg (27.0-31.0); MEAN CORPUSCULAR HGB CONC 32.2 g/dL (32.0-36.0); MEAN PLATELET VOLUME 9.9 fL (7.4-11.4); MONOCYTES # (AUTO) 0.6 10^3/uL (0.0-1.0); MONOCYTES % (AUTO) 4.4 %; NEUTROPHILS # (AUTO) 11.6 10^3/uL (1.5-6.6); NEUTROPHILS % (AUTO) 90.6 %; PLT - PLATELET COUNT 124 10^3/uL (130-450); RED BLOOD COUNT 4.06 10^6/uL (4.70-6.10); RED CELL DISTRIBUTION WIDTH 14.1 % (12.0-15.0); WHITE BLOOD COUNT 12.8 x10^3/uL (4.8-10.8)
[2020-10-14 05:46] LABS: INR 1.1 (0.8-1.2); PT - PROTHROMBIN TIME 11.9 secs (9.9-12.6)
[2020-10-14 05:55] LABS: ALBUMIN 4.4 g/dL (3.2-5.5); ALBUMIN/GLOBULIN RATIO 1.3 (1.0-2.2); BILIRUBIN,TOTAL 2.5 mg/dL (0.2-1.0); CALCIUM 7.9 mg/dL (8.5-10.3); CREATININE 1.3 mg/dL (0.6-1.2); TOTAL PROTEIN 7.9 g/dL (6.7-8.2)
[2020-10-14] MEDS: PANTOPRAZOLE 40 MG VIAL IVP SCH (06:32)
[2020-10-14 06:36] LABS: MUDS CUTOFF CONCENTRATIONS CUTOFF CONC BELOW:
[2020-10-14 06:47] LABS: AMPHETAMINE SCREEN,URINE NEGATIVE (NEGATIVE); BARBITURATE SCREEN,UR NEGATIVE (NEGATIVE); BENZODIAZEPINES SCREEN, URINE NEGATIVE (NEGATIVE); COCAINE SCREEN URINE NEGATIVE (NEGATIVE); METHADONE SCREEN, URINE NEGATIVE (NEGATIVE); METHAMPHETAMINES SCREEN, URINE NEGATIVE (NEGATIVE); OPIATE SCREEN, URINE NEGATIVE (NEGATIVE); OXYCODONE SCREEN, URINE NEGATIVE (NEGATIVE); PROPOXYPHENE SCREEN, URINE NEGATIVE (NEGATIVE); THC CANNABINOID SCREEN, URINE POSITIVE (NEGATIVE); TRICYCLIC ANTIDEPRESSANT,URINE NEGATIVE (NEGATIVE)
--- NOTE | 2020-10-14 07:05 | PHARMACY PROGRESS NOTE ---
- Best Possible Medication History Admit Date and Time: 10/14/20 0203 Processed by: Nursing Medication History completed: Yes Patient Interview: Completed Secondary Source(s): Pharmacy records, Insurance records As the person ultimately responsible for medication therapy, providers are able to order a medication from an existing home medication list in [facility] via the "Reconcile Routine" prior to Confirmation of that medication by marketing support coordinator. Such practice is discouraged except when the physician, in their clinical judgment, deems that a medical need exists for a medication without regard to previous use.
[2020-10-14] MEDS ORDERED: INSULIN REGULAR HUMAN 300 UNIT/3 ML VIAL IVP ONE (07:34)
[2020-10-14] MEDS ORDERED: DEXTROSE 50% ABBOJECT 25 GM/50 ML SYRINGE IVP ONE (07:36)
--- NOTE | 2020-10-14 07:59 | XRAY Report ---
PROCEDURE: Chest 1 View X-Ray INDICATIONS: Chest Pain TECHNIQUE: One view of the chest was acquired. COMPARISON: None FINDINGS: Surgical changes and devices: None. Lungs and pleura: No pleural effusions or pneumothorax. Lungs are clear. Mediastinum: Mediastinal contours appear normal. Heart size is normal. Bones and chest wall: No suspicious bony lesions. Overlying soft tissues appear unremarkable. IMPRESSION: Portable chest within normal limits for age. Note: No significant discrepancy from the preliminary report. Reviewed by: Piter Reaves MD on 10/14/2020 6:57 AM SOIFYA Approved by: Piter Reaves MD on 10/14/2020 6:57 AM SOFIYA Station ID: [id number]
[2020-10-14] MEDS ORDERED: MULTIVITAMIN 10 ML, FOLIC ACID INJ 1 MG, THIAMINE INJ 100 MG, MAGNESIUM SULFATE 2 GM in... IV SCH ×5 (09:00)
[2020-10-14] MEDS ORDERED: ENOXAPARIN 40 MG/0.4 ML SYRINGE SUBQ SCH (09:00)
[2020-10-14] MEDS: lisinopriL 5 MG TABLET PO SCH (09:21)
[2020-10-14] MEDS: DEXTROSE 5%-0.45% NACL 1,000 ML IV SCH (09:22)
[2020-10-14 10:24] LABS: CALCIUM 7.8 mg/dL (8.5-10.3); CREATININE 1.1 mg/dL (0.6-1.2); POTASSIUM 5.1 mmol/L (3.5-5.0)
[2020-10-14] MEDS: SODIUM CHLORIDE FLUSH 0.9% 10 ML SYRINGE IVP SCH ×2 (10:57→15:50)
[2020-10-14 13:16] LABS: HCT - HEMATOCRIT 35.7 % (42.0-52.0); HGB - HEMOGLOBIN 11.8 g/dL (14.0-18.0); MEAN CORPUSCULAR HEMOGLOBIN 32.9 pg (27.0-31.0); MEAN CORPUSCULAR HGB CONC 33.1 g/dL (32.0-36.0); MEAN CORPUSCULAR VOLUME 99.4 fL (80.0-94.0); MEAN PLATELET VOLUME 9.9 fL (7.4-11.4); RED BLOOD COUNT 3.59 10^6/uL (4.70-6.10); RED CELL DISTRIBUTION WIDTH 13.9 % (12.0-15.0); WHITE BLOOD COUNT 8.3 x10^3/uL (4.8-10.8)
[2020-10-14 13:46] LABS: ESTIMATED AVERAGE GLUCOSE 111 mg/dL (70-100); HEMOGLOBIN A1c% 5.5 % (4.27-6.07)
--- NOTE | 2020-10-14 14:32 | PROVIDER PROGRESS NOTE ---
Hospitalist Cross-cover Note - Cross-Cover Note Cross-Cover Note: Pt found to have K of 6 this morning. Given 10units IV insulin and an amp of D50. Also started on D51/2NS @ 125ml/hr. Banana bag also given. Repeat K of 5.1. WBC trending down and normal this afternoon. He has been hyperglycemic, likely due to the fluids and ketoacidosis given his A1C is 5.5% today. Has been tremulous and disoriented to the date but feels that he is improving overall. RNs have been monitoring his CIWA scores and he has declined his PRN ativan. Has not had any complaints this afternoon. Will continue to monitor.
[2020-10-15] MEDS: SODIUM CHLORIDE FLUSH 0.9% 10 ML SYRINGE IVP SCH ×2 (00:23→08:21)
[2020-10-15] MEDS: DEXTROSE 5%-0.45% NACL 1,000 ML IV SCH ×3 (03:23→08:47)
[2020-10-15 05:38] LABS: BASOPHILS % (AUTO) 0.1 %; EOSINOPHILS % (AUTO) 0.1 %; HCT - HEMATOCRIT 36.2 % (42.0-52.0); HGB - HEMOGLOBIN 12.3 g/dL (14.0-18.0); LYMPHOCYTES # (AUTO) 1.2 10^3/uL (1.5-3.5); LYMPHOCYTES % (AUTO) 17.5 %; MEAN CORPUSCULAR HEMOGLOBIN 32.9 pg (27.0-31.0); MEAN CORPUSCULAR VOLUME 96.8 fL (80.0-94.0); MEAN PLATELET VOLUME 9.9 fL (7.4-11.4); MONOCYTES # (AUTO) 0.5 10^3/uL (0.0-1.0); MONOCYTES % (AUTO) 6.7 %; NEUTROPHILS # (AUTO) 5.3 10^3/uL (1.5-6.6); NEUTROPHILS % (AUTO) 75.3 %; PLT - PLATELET COUNT 82 10^3/uL (130-450); RED BLOOD COUNT 3.74 10^6/uL (4.70-6.10); RED CELL DISTRIBUTION WIDTH 13.5 % (12.0-15.0)
[2020-10-15 05:51] LABS: ALBUMIN 3.6 g/dL (3.2-5.5); BILIRUBIN,DIRECT 0.6 mg/dL (0.1-0.5); CALCIUM 8.2 mg/dL (8.5-10.3); CREATININE 0.7 mg/dL (0.6-1.2); POTASSIUM 3.4 mmol/L (3.5-5.0); TOTAL PROTEIN 6.3 g/dL (6.7-8.2)
[2020-10-15] MEDS: PANTOPRAZOLE 40 MG VIAL IVP SCH (06:43)
[2020-10-15] MEDS ORDERED: POTASSIUM CHLORIDE 20 MEQ TABLET PO ONE (07:58)
--- NOTE | 2020-10-15 08:11 | Discharge Plan ---
Discharge Plan Problem Reviewed?: Yes Disposition: Home, Self Care Condition: Stable Prescriptions: Metoprolol Tartrate [Lopressor] 25 mg PO BID #60 tablet Diet: Regular Activity Restrictions: Activity as Tolerated Shower Restrictions: No Driving Restrictions: No Instruction Topics: Metoprolol tablets, Atrial Fibrillation Health Concerns: You were admitted with abdominal pain, nausea, vomiting and changes in your electrolytes due to your alcohol use. Your abdominal pain resolved without intervention and after receiving nausea medication your nausea and vomiting resolved. Your blood counts remained stable and there was no concern for a BI bleed. You also were found to have a new rapid irregular heart rhythm called atrial fibrillation that changed back to normal after 2 doses of a medication called Diltiazem. I have started you on a new heart medication for your atrial fibrillation called metoprolol. You received insulin and IV fluids to correct a high potassium, and a vitamin bag called a banana bag to replete other electrolytes. You did not require any ativan for alcohol withdrawal. Over your 24 hour admission your white blood cells corrected to normal. Your potassium was low this morning and you took a supplement to increase it to normal. Return to the ER if you feel like your heart is fluttering or palpitating in your chest or if you have chest pain. Also return if you have a return of nausea, vomiting, abdominal pain and feel as if you are going back into alcohol withdrawal. Plan of Treatment: Take your Lisinopril and Metoprolol as prescribed. Continue with your vitamins as well. Continue meeting with your counselor from [facility] and try to cut down on your alcohol intake if you can. Assessment: Pt understands the treatment plan. Additional Instructions or Follow Up instructions: You should follow up with your PCP in 1-2 weeks now that you have started on a new heart medication. Follow up with your [facility] counselor regarding your drinking. Return to the ER if you feel new chest pain, palpitations or fluttering in your chest and have a rapid heart beat. Also return if you feel dizzy, light-headed or faint. If you feel as if you are withdrawing from alcohol and having abdominal pain, nausea, and vomiting dark or bloody emesis return to the ED. No Smoking: If you smoke, Please STOP! Call for help. Follow-up with: Wojciech Cevallos DO [Primary Care Provider] -
--- NOTE | 2020-10-15 08:14 | DISCHARGE SUMMARY ---
Discharge Summary Admit Date: 10/14/20 Discharge Date: 10/15/20 Discharging Provider: TERRY Mcdonough Primary Care Provider: Wojciech Cevallos DO Code Status: Attempt Resuscitation Condition at Discharge: Stable Discharge Disposition: 01 Home, Self Care - DIAGNOSES Admission Diagnoses: (1) Alcoholic ketoacidosis (2) Alcoholism (3) New onset atrial fibrillation (4) Hypertension (5) Hematemesis with nausea (6) Elevated white blood cell count Discharge Diagnoses with Status of Each Condition: (1) Alcoholic ketoacidosis Conclusion/Plan: Resolved. CIWA 0-2 overnight, no tremors, abdominal pain, nausea or vomiting this morning. His electrolytes have returned to normal with exception of potassium which is only slightly low. (2) Alcoholism Stable. CIWA 0-2 overnight, no tremors or confusions. Feels safe to return home. (3) New onset atrial fibrillation Stable/resolved. Atrial fibrillation appears to be new for him. Has remained in sinus rhythm since receiving 2 doses of Diltiazem on admission. Heart rates have been 80s-90s. Since he did not convert back to afib we will not send him out with anticoagulation as this may have been due to his electrolyte disturbances and alcoholic ketoacidosis. I have started him on low dose Metoprolol 25mg po BID and he should follow up with his PCP. He had an echocardiogram done in December 2019 which showed ejection fraction of 55%. The left atrium was not well visualized. Pulmonary pressure could not be measured. Right ventricle was normal in size and function. (4) Hypertension Stable. His home dose of Lisinopril was restarted yesterday. SBP has ranged 108-134mmHg. The Lisinopril was continued. (5) Hematemesis with nausea Resolved. No emesis or nausea since yesterday morning. Has been tolerating a regular diet. No abdominal pain. Hemoglobins have remained stable. (6) Elevated white blood cell count Resolved. WBC is no longer elevated, there are no concerns for infection. - HPI History of Present Illness: From Dr. Baig's H&P 10/14: Mr. Sylvester is a 70-year-old white male who has a history of chronic alcohol abuse and has been admitted in the past with alcoholic ketoacidosis, alcohol withdrawal associated with vomiting, generalized abdominal pain. His last admission for this was August 18. He says that was the last time he went through alcohol withdrawal. Previous ultrasound and CT abd imaging in April of this year do not show anything but alcoholic liver disease. He does not have varices nor does he have ascites. He was seen by Dr. Cevallos in follow-up. He was put on oral iron supplementation because of iron deficiency anemia. He is drinking about 3 small airline bottles of alcohol a day. He is seeing Carmelo Crowell for alcohol rehab counseling. His last drink was late in the evening of October 12. He now presents again with abdominal pain, nausea and vomiting. He is not sure but one of his episodes of emesis was associated with possible coffee grounds. He states that his stool is dark. He can't keep any food down. Eating makes the abd pain and nausea worse. Nonradiating and present over the epigastrium. Moving around doesn't make the pain worse. Last BM on Thursday and was dark but not liquid. Does have flatus. When he is admitted, starting hemoglobin is usually 15 or so. It then subsequently drops with IV hydration. With this evaluation in the emergency room hemoglobin is 15. He is with tachycardia that was found to be atrial fibrillation. Given diltiazem 15 mg IV push x2 doses and is converted to sinus rhythm but his pulse remains sinus tachycardia. Blood pressure has remained stable. Since he has been on MedSurg, he has had one episode of emesis. Abdominal pain has resolved. But he is shaky, tremulous. - HOSPITAL COURSE Hospital Course: Pt admitted from the ER with abdominal pain, nausea and vomiting. He was found to have new onset atrial fibrillation thought possibly related to his electrolyte imbalances and converted with 2 doses of Diltiazem. He has remained in sinus rhythm since. He had an elevated WBC, anion gap, and potassium which recovered with IV fluids and insulin. He was hyperglycemic for a period of time but this resolved on its own- his A1C was 5.5%. A banana bag was given on HD 1. His CIWA scores were initially elevated and he was tremulous and confused but he refused PRN ativan and by evening his scores were 0-2. No seizures. His abdominal pain and nausea resolved and he had no further emesis after his initial admission. Hemoglobin remained stable and there was no concern for a GI bleed at discharge. On the morning of discharge his potassium was 3.4. It was replaced and he was also started on Metoprolol 25mg po bid for his atrial fibrillation and hypertension (his Lisinopril was also continued for his hypertension). He reports following at [facility] for his alcohol dependence and was seen by Social Work. He denies further needs and is calm and appropriate this morning. His WBC has resolved and he is tolerating a regular diet. He discharged home with instructions to follow up with his PCP in a week and to continue counseling with his [facility] provider. - ALLERGIES Allergies/Adverse Reactions: Allergies Allergy/AdvReac Type Severity Reaction Status Date / Time No Known Drug Allergies Allergy Verified 10/13/20 23:28 - MEDICATIONS Home Medications: Ambulatory Orders Medication Instructions Recorded Confirmed Aspirin Chewable [[place] 81 mg PO DAILY 01/02/20 10/13/20 Aspirin] Atorvastatin [Lipitor] 20 mg PO DAILY #30 tablet 01/03/20 10/13/20 lisinopriL [Prinivil] 10 mg PO DAILY 01/03/20 10/13/20 Pnv No.95/Ferrous Fum/Folic AC 1 each PO DAILY #30 tablet 04/13/20 10/13/20 [ Tablet] Thiamine [Vitamin B-1] 100 mg PO DAILY #30 tablet 04/13/20 10/13/20 Metoprolol Tartrate [Lopressor] 25 mg PO BID #60 tablet 10/15/20 - PHYSICAL EXAM AT DISCHARGE General Appearance: positive: No acute distress, Alert, Other (Sitting up in chair eating breakfast, in no acute distress. Alert, non-tremulous. ) Eyes Bilateral: positive: Normal inspection, PERRL ENT: positive: ENT inspection nml, No signs of dehydration Neck: positive: Nml inspection Respiratory: positive: Chest non-tender, No respiratory distress, Breath sounds nml Cardiovascular: positive: Regular rate & rhythm, No murmur Abdomen: positive: Non-tender, No organomegaly, Nml bowel sounds, No distention Skin: positive: Color nml Extremities: positive: Non-tender, Full ROM, Nml appearance Neurologic/Psychiatric: positive: Oriented x3, CN's nml (2-12) Physical Exam Other/Comments: Vital Signs - 24 hr 10/14/20 10/14/20 10/14/20 11:24 12:00 15:36 Temperature 36.9 C 37.2 C 37.1 C Heart Rate 90 Heart Rate [ 95 86 Brachial] Respiratory 20 14 20 Rate Blood Pressure 134/64 H 110/61 [Left Brachial artery] O2 Saturation 99 100 98 10/14/20 10/14/20 19:45 23:19 Temperature 37.2 C 37.3 C Heart Rate Heart Rate [ 91 83 Brachial] Respiratory 18 20 Rate Blood Pressure 113/52 L 108/65 [Left Brachial artery] O2 Saturation 99 98 - LABS Result Diagrams: 10/15/20 05:30 10/15/20 05:30 Other Lab Results: Laboratory Results - last 24 hr 10/14/20 10/14/20 10/14/20 05:31 10:10 13:10 WBC 8.3 RBC 3.59 L Hgb 11.8 L Hct 35.7 L MCV 99.4 H MCH 32.9 H MCHC 33.1 RDW 13.9 Plt Count 96 L MPV 9.9 Neut # (Auto) Lymph # (Auto) Woods # (Auto) Eos # (Auto) Baso # (Auto) Absolute Nucleated RBC Nucleated RBC % Sodium 134 L Potassium 5.1 H Chloride 102 Carbon Dioxide 16 L Anion Gap 16.0 H BUN 17 Creatinine 1.1 Estimated GFR (MDRD) 66 L Glucose 324 H Estimat Average Glucose 111 H Hemoglobin A1c % 5.5 Calcium 7.8 L Total Bilirubin Direct Bilirubin AST ALT Alkaline Phosphatase Total Protein Albumin Globulin 10/15/20 10/15/20 05:30 05:30 WBC 7.0 RBC 3.74 L Hgb 12.3 L Hct 36.2 L MCV 96.8 H MCH 32.9 H MCHC 34.0 RDW 13.5 Plt Count 82 L MPV 9.9 Neut # (Auto) 5.3 Lymph # (Auto) 1.2 L Woods # (Auto) 0.5 Eos # (Auto) 0.0 Baso # (Auto) 0.0 Absolute Nucleated RBC 0.00 Nucleated RBC % 0.0 Sodium 137 Potassium 3.4 L Chloride 103 Carbon Dioxide 24 Anion Gap 10.0 BUN 8 Creatinine 0.7 Estimated GFR (MDRD) 111 Glucose 139 H Estimat Average Glucose Hemoglobin A1c % Calcium 8.2 L Total Bilirubin 2.0 H Direct Bilirubin 0.6 H AST 43 H ALT 30 Alkaline Phosphatase 70 Total Protein 6.3 L Albumin 3.6 Globulin 2.7 - SEPSIS Current Stage of Sepsis: Ruled out - FOLLOW UP Follow Up: Follow up with PCP Dr. Cevallos in 1 week. - TIME SPENT Time Spent in Discharge (Minutes): 32
[2020-10-15] MEDS: lisinopriL 5 MG TABLET PO SCH (08:21)
[2020-10-15 08:55] VITALS: BP 118/74
[2020-10-15] MEDS ORDERED: METOPROLOL TARTRATE 25 MG TABLET PO SCH (09:00)
[2020-10-15] MEDS ORDERED: PRENATAL VITAMIN TABLET PO SCH (09:00)
[2020-10-15] MEDS ORDERED: THIAMINE 100 MG TABLET PO SCH (09:00)
[2020-10-16] MEDS ORDERED: PANTOPRAZOLE 40 MG TABLET PO SCH (07:00)
== END 2020-10-15 10:25 | disposition home or self-care (01) | DRG 897 ==
LOC: EDUNIT# → ED 23:24 → SUPCPDRO 23:24 → MS2 10-14 02:03 → OBSVTOIN 10-14 10:10
PROVIDERS: ADMIT Specialist; ATTEND Registered Nurse
DX: F10.288 Alcohol dependence with other alcohol-induced disorder (principal); E87.2 Acidosis; K92.0 Hematemesis; I48.91 Unspecified atrial fibrillation; I10 Essential (primary) hypertension; D72.829 Elevated white blood cell count, unspecified; R00.0 Tachycardia, unspecified; R73.9 Hyperglycemia, unspecified; F41.9 Anxiety disorder, unspecified; F32.9 Major depressive disorder, single episode, unspecified; I25.10 Atherosclerotic heart disease of native coronary artery without angina pectoris; I25.2 Old myocardial infarction; Z20.822 Contact with and (suspected) exposure to COVID-19; E78.00 Pure hypercholesterolemia, unspecified; Z86.73 Personal history of transient ischemic attack (TIA), and cerebral infarction without residual deficits
CPT/HCPCS: 36415; 71045; 80048; 80053; 80076; 80306; 81001; 82009; 82803; 83036; 83690; 84484; 85025; 85027; 85610; 87631; 93005; 96361; 96365; 96375; 96376; 99284; 99285; A9270; G0378; J1815; J3411; 0202U; 81003; 87086

== ENCOUNTER 2020-11-27 14:15 | Outpatient (CLI) | payer MEDICARE, MEDICAID | END 2020-11-27 14:16 | disposition critical access hospital (66) | LOC: EMS 14:15 | DX: R25.1 Tremor, unspecified (principal); R25.2 Cramp and spasm | CPT/HCPCS: A0425; A0429 ==

== ENCOUNTER 2020-11-27 14:31 | Emergency (ER) | payer MEDICARE, MEDICAID ==
[2020-11-27] MEDS ORDERED: THIAMINE INJ 100 MG, MAGNESIUM SULFATE 2 GM, MULTIVITAMIN 10 ML in SODIUM CHLORIDE 0.9%... IM ONE (14:42)
--- NOTE | 2020-11-27 14:43 | ED Physician Documentation ---
History of Present Illness - Stated complaint Stated Complaint: TREMORS - History obtained from History obtained from: Patient - Additonal information Additional information: This is a 70-year-old male with past medical history of alcoholism who presented initially with a left upper arm tremor. He states that the tremor started suddenly today. He has generalized weakness but no focal weakness with the tremor. He states that he does not feel he is withdrawing from alcohol, states that he has been drinking about a half a bottle of vodka a day down from a bottle in previous months and his last drink was last night which was 2 shots. He states that he has not had any hallucinations, no confusion, no seizure activity, no abdominal pain, no hematemesis or blood per rectum, no diarrhea, no urinary cramping. He denies any trauma to left upper extremity, no muscle spasms, no excess use of the extremity. Patient was initially seen as above and had essentially had all his symptoms resolved after a banana bag therefore he was preparing for discharge when he had a general tonic-clonic seizure. The nurse was not in the room at the time but had just given the patient discharge instructions and then he heard the patient fall to the ground. The fall was unwitnessed. He was found by me and the nurse on the ground with a laceration to the back of the head and an active tonic- clonic type seizure. The seizure lasted approximately 1 minute and resolved before Ativan was given. Review of Systems Constitutional: reports: Reviewed and negative Eyes: reports: Reviewed and negative Ears: reports: Reviewed and negative Nose: reports: Reviewed and negative Throat: reports: Reviewed and negative Cardiac: reports: Reviewed and negative Respiratory: reports: Reviewed and negative GI: reports: Reviewed and negative : reports: Reviewed and negative Skin: reports: Reviewed and negative Musculoskeletal: reports: Other (Left upper arm tremor) Neurologic: reports: Seizure, Other (Seizure occurred after patient arrived in ER) Psychiatric: reports: Reviewed and negative Endocrine: reports: Reviewed and negative Immunocompromised: reports: Reviewed and negative PD PAST MEDICAL HISTORY - Past Medical History Cardiovascular: Hypertension, High cholesterol, Coronary artery disease, [place] Respiratory: None Neuro: CVA, Other Endocrine/Autoimmune: None GI: None : None HEENT: None Psych: Depression, Anxiety Musculoskeletal: Osteoarthritis, Chronic back pain, Other Derm: None - Past Surgical History Past Surgical History: Yes General: Other - Present Medications Home Medications: Ambulatory Orders Medication Instructions Recorded Confirmed Aspirin Chewable [[facility] [place] 81 mg PO DAILY 01/02/20 11/27/20 Aspirin] Atorvastatin [Lipitor] 20 mg PO DAILY #30 tablet 01/03/20 11/27/20 lisinopriL [Prinivil] 10 mg PO DAILY 01/03/20 11/27/20 Pnv No.95/Ferrous Fum/Folic AC 1 each PO DAILY #30 tablet 04/13/20 11/27/20 [ Tablet] Thiamine [Vitamin B-1] 100 mg PO DAILY #30 tablet 04/13/20 11/27/20 Metoprolol Tartrate [Lopressor] 25 mg PO BID #60 tablet 10/15/20 11/27/20 Potassium Chloride [Klor-Con] 20 meq PO DAILY 11/27/20 11/27/20 chlordiazePOXIDE [Librium] 25 mg PO Q6H #12 cap 11/27/20 - Allergies Allergies/Adverse Reactions: Allergies Allergy/AdvReac Type Severity Reaction Status Date / Time No Known Drug Allergies Allergy Verified 11/27/20 14:39 - Social History Does the pt smoke?: No Smoking Status: Never smoker Does the pt drink ETOH?: Yes Does the pt have substance abuse?: No - Immunizations Immunizations are current?: Yes - POLST Patient has POLST: No POLST Status: Full Code PD ED PE NORMAL - Vitals Vital signs reviewed: Yes - General General: Alert and oriented X 3, No acute distress - HEENT HEENT: Atraumatic, PERRL, Moist mucous membranes, Pharynx benign - Neck Neck: Supple, no meningeal sign, No JVD - Cardiac Cardiac: RRR, No murmur - Respiratory Respiratory: No respiratory distress, Clear bilaterally - Abdomen Abdomen: Normal bowel sounds, Soft, Non tender, Non distended - Derm Derm: Normal color, Warm and dry, No rash - Extremities Extremities: No deformity, No tenderness to palpate, Normal ROM s pain, No edema, No calf tenderness / cord, Other (Left upper arm continuous tremor, no weakness, moves all extremities with 5 out of 5 strength) - Neuro Neuro: Alert and oriented X 3, [employer] 2-12 intact, No motor deficit, No sensory deficit, Normal speech Eye Opening: Spontaneous Motor: Obeys Commands Verbal: Oriented GCS Score: 15 - Psych Psych: Normal mood, Normal affect Results - Vitals Vitals: Vital Signs - 24 hr 11/27/20 11/27/20 11/27/20 14:40 15:00 15:34 Temperature 36.6 C 36.8 C Heart Rate 71 70 68 Respiratory 18 18 18 Rate Blood Pressure 187/104 H 171/111 H 170/108 H O2 Saturation 97 96 97 11/27/20 11/27/20 11/27/20 16:06 17:15 17:43 Temperature 37.3 C Heart Rate 64 75 79 Respiratory 18 18 18 Rate Blood Pressure 173/94 H 162/105 H O2 Saturation 97 999 H 92 11/27/20 11/27/20 17:45 18:16 Temperature Heart Rate 72 Respiratory 14 Rate Blood Pressure 172/100 H 124/90 H O2 Saturation 99 Oxygen O2 Source Room air - Labs Labs: Laboratory Tests 11/27/20 11/27/20 14:49 14:49 WBC 3.3 L RBC 4.20 L Hgb 14.0 Hct 41.5 L MCV 98.8 H MCH 33.3 H MCHC 33.7 RDW 14.7 Plt Count 98 L MPV 9.9 Neut # (Auto) 2.0 Lymph # (Auto) 0.6 L [place] # (Auto) 0.6 Eos # (Auto) 0.0 Baso # (Auto) 0.0 Absolute Nucleated RBC 0.00 Nucleated RBC % 0.0 Sodium 138 Potassium 4.0 Chloride 96 L Carbon Dioxide 31 Anion Gap 11.0 BUN 7 Creatinine 0.7 Estimated GFR (MDRD) 111 Glucose 118 H Calcium 9.5 Magnesium 1.6 L Total Bilirubin 1.2 H AST 51 H ALT 33 Alkaline Phosphatase 90 Total Protein 8.0 Albumin 4.6 Globulin 3.4 Albumin/Globulin Ratio 1.4 Lipase 60 H Ethyl Alcohol < 5.0 PD MEDICAL DECISION MAKING - ED course Complexity details: reviewed results, re-evaluated patient, considered differential, d/w patient, other (d/w ED attending. ) ED course: This is a 70-year-old male with past medical history of alcoholism who presented initially with a left upper arm tremor. He had no other focal exam findings and did not feel he was in a cholesterol. He received a banana bag and labs were obtained which were largely reassuring. He felt substantially better with position of his tremor with a banana bag and was preparing for discharge when he had a tonic-clonic seizure which was witnessed by me. He did fall to the ground during the seizure which lasted less than 1 minute. It resolved before any medication was given the brief postictal period but has since recovered. He has not had any further symptoms. CT head and neck was obtained and were reassuring. He had a small superficial laceration on the back of his head which did not require suture repair and was cleaned and dressed by nursing staff. Patient was monitored without any additional seizure activity. He was given 1 mg of Ativan for mild tremor. I discussed potential admission for alcohol withdrawal symptoms however patient would like to go home. I d/w ED attending and we feel this could likely be managed as outpatient. Pt was given 25mg of Librium PO prior to discharge and home w/ prescription for Librium w strict return precautions. He has a friend who will stay with him tonight and return if recurrent seizure activity or signs of worsening alcohol withdrawal. Departure - Departure Disposition: 01 Home, Self Care Clinical Impression: Seizure Alcohol withdrawal seizure Qualifiers: Complication of substance-induced condition: uncomplicated Qualified Code(s): F10.230 - Alcohol dependence with withdrawal, uncomplicated Condition: Good Prescriptions: chlordiazePOXIDE [Librium] 25 mg PO Q6H #12 cap Comments: You presented with a upper arm tremor primarily in the left side, that resolved with IV fluids including thiamine and magnesium. You are feeling better when you suddenly had a brief seizure and fell to the ground hitting the back of your head. You had a small laceration on the back of her head that did not require repair. We did a CT scan of her head and neck and these were reassuring without any acute findings. The seizure is likely due to alcohol withdrawal. You continue to have some minor tremor so we gave you A medication called Ativan which improved your symptoms. I am going to discharge you with a medication called Librium, this should help Alleviate some of the alcohol withdrawal symptoms. It is important that you do not drink while you are on this medication. If you choose to drink then you should not take this medication. Please follow-up with your primary care provider within the next 1 week for follow-up. Return to the ER if you have recurrent seizures or increasing alcohol withdrawal.
[2020-11-27 14:56] LABS: BASOPHILS % (AUTO) 0.9 %; EOSINOPHILS % (AUTO) 0.3 %; HCT - HEMATOCRIT 41.5 % (42.0-52.0); LYMPHOCYTES # (AUTO) 0.6 10^3/uL (1.5-3.5); LYMPHOCYTES % (AUTO) 19.3 %; MEAN CORPUSCULAR HEMOGLOBIN 33.3 pg (27.0-31.0); MEAN CORPUSCULAR HGB CONC 33.7 g/dL (32.0-36.0); MEAN CORPUSCULAR VOLUME 98.8 fL (80.0-94.0); MEAN PLATELET VOLUME 9.9 fL (7.4-11.4); MONOCYTES # (AUTO) 0.6 10^3/uL (0.0-1.0); MONOCYTES % (AUTO) 18.4 %; NEUTROPHILS % (AUTO) 60.8 %; PLT - PLATELET COUNT 98 10^3/uL (130-450); RED CELL DISTRIBUTION WIDTH 14.7 % (12.0-15.0); WHITE BLOOD COUNT 3.3 x10^3/uL (4.8-10.8)
[2020-11-27 15:05] LABS: ALBUMIN 4.6 g/dL (3.2-5.5); ALBUMIN/GLOBULIN RATIO 1.4 (1.0-2.2); ALKALINE PHOSPHATASE 90 IU/L (42-121); ALT ALANINE AMINOTRANSFERASE 33 IU/L (10-60); AST ASPARTATE AMINOTRANSFERASE 51 IU/L (10-42); BILIRUBIN,TOTAL 1.2 mg/dL (0.2-1.0); BUN - BLOOD UREA NITROGEN 7 mg/dL (6-20); CALCIUM 9.5 mg/dL (8.5-10.3); CARBON DIOXIDE - CO2 31 mmol/L (21-32); CHLORIDE 96 mmol/L (101-111); CREATININE 0.7 mg/dL (0.6-1.2); ETOH - ETHANOL < 5.0 mg/dL; GFR - MDRD 111 (>89); GLUCOSE 118 mg/dL (70-100); LIPASE 60 U/L (22-51); MAGNESIUM 1.6 mg/dL (1.7-2.8); SODIUM 138 mmol/L (135-145)
[2020-11-27] MEDS ORDERED: THIAMINE INJ 100 MG, MAGNESIUM SULFATE 2 GM, MULTIVITAMIN 10 ML in SODIUM CHLORIDE 0.9%... IV ONE (15:12)
[2020-11-27] MEDS ORDERED: LORazepam 2 MG/ML VIAL ONE (16:38)
--- NOTE | 2020-11-27 17:14 | CT Report ---
PROCEDURE: HEAD WO INDICATIONS: Fall and seizure in the ER TECHNIQUE: Noncontrast 4.5 mm thick angled axial sections acquired from the foramen magnum to the vertex. For r adiation dose reduction, the following was used: automated exposure control, adjustment of mA and/or kV according to patient size. COMPARISON: 02/01/2020. FINDINGS: Image quality: There is beam hardening artifact. CSF spaces: There is mild cerebral volume loss with prominence of the ventricles and sulci. Basal ci sterns are patent. No extra-axial fluid collections. Brain: No intracranial hemorrhage, mass, or mass effect. There are periventricular and subcortical w jony matter hypodensities consistent with mild chronic small vessel skin changes. Joe-white matter i nterface is normal. Skull and face: Calvarium and visualized facial bones are intact, without suspicious lesions. Sinuses: Visualized sinuses and mastoids are clear. IMPRESSION: 1. No acute intracranial abnormality. 2. Mild cerebral volume loss and chronic white matter small vessel ischemic changes. Reviewed by: Peter Badillo MD on 11/27/2020 5:12 PM PDT Approved by: Peter Badillo MD on 11/27/2020 5:12 PM PDT Station ID: [id number]
--- NOTE | 2020-11-27 17:16 | CT Report ---
PROCEDURE: CERVICAL SPINE WO INDICATIONS: fall and seizure in ER TECHNIQUE: Noncontrast 3 mm thick sections acquired from the skull base to the T4 level. Sagittal and coronal r eformats were then constructed. For radiation dose reduction, the following was used: automated exp osure control, adjustment of mA and/or kV according to patient size. COMPARISON: None. FINDINGS: Image quality: Excellent. Bones: No fractures or subluxation. There is multilevel degenerative disc disease including moderat e to severe degeneration at C6-C7 with endplate sclerosis. Bridging anterior osteophytes are also dem onstrated at C4-C7. There is moderate to severe multilevel facet arthropathy throughout the cervical spine. Visualized superior ribs are intact. Soft tissues: Prevertebral soft tissues are normal in thickness. No paravertebral hematomas. No ap ical pneumothoraces. IMPRESSION: 1. No acute fracture or subluxation. 2. Multilevel degenerative changes in the cervical spine as described. Reviewed by: Peter Badillo MD on 11/27/2020 5:14 PM PDT Approved by: Peter Badillo MD on 11/27/2020 5:14 PM PDT Station ID: [id number]
[2020-11-27] MEDS ORDERED: LORazepam 2 MG/ML VIAL IVP STA (18:00)
[2020-11-27 18:17] VITALS: BP 124/90
[2020-11-27] MEDS ORDERED: chlordiazePOXIDE 25 MG CAPSULE PO STA (19:25)
== END 2020-11-27 20:02 | disposition home or self-care (01) ==
LOC: EDUNIT# → SUPCPDRO 14:31 → ED 14:31
DX: F10.239 Alcohol dependence with withdrawal, unspecified (principal); G40.509 Epileptic seizures related to external causes, not intractable, without status epilepticus; R25.1 Tremor, unspecified; S01.01XA Laceration without foreign body of scalp, initial encounter; W19.XXXA Unspecified fall, initial encounter; Y93.89 Activity, other specified; Y92.538 Other ambulatory health services establishments as the place of occurrence of the external cause
CPT/HCPCS: 36415; 70450; 72125; 80053; 83690; 83735; 85025; 96365; 96375; 99284; A9270; G0480; J2060; J3411; 80320

== ENCOUNTER 2021-01-25 07:07 | Outpatient (CLI) | payer MEDICARE | END 2021-01-25 07:08 | disposition critical access hospital (66) | LOC: EMS 07:07 | DX: R44.3 Hallucinations, unspecified (principal) | CPT/HCPCS: A0425; A0429 ==

== ENCOUNTER 2021-01-25 07:22 | Emergency (ER) | payer MEDICAID, MEDICARE ==
[2021-01-25] MEDS ORDERED: SODIUM CHLORIDE 0.9% 1,000 ML IV STA (07:35)
[2021-01-25] MEDS ORDERED: LORazepam 2 MG/ML VIAL IVP STA (07:35)
--- NOTE | 2021-01-25 07:35 | ED Physician Documentation ---
PD HPI ALTERED MENTAL STATUS - Stated complaint Stated Complaint: ETOH/HALLUCINATIONS - History obtained from History obtained from: Patient, EMS - History of Present Illness Timing - onset: Today, Last night Timing - duration: Hours Timing - details: Gradual onset, Now resolved (he denies current hallucinations. Able to talk clearly. Aware of surroundings and events. Has some shakiness, wh ich he says is fairly common.) Quality / character: Hallucinating (visual seeing things that seem to not be there. Denies auditory hallucinations.) Associated symptoms: General weakness. No: Fever, Headache, Cough, NVD, Seizure activity Contributing factors: No: Recent illness, Intoxicated (he states had not had drink since last evening. History of alcoholism and had been sober for a month and then started again 3 weeks ago. Regular intake through the day.), Known dementia Basline status: Alert and oriented X 3, Ambulatory Similar symptoms before: No diagnosis Recently seen: Not recently seen Review of Systems Constitutional: denies: Fever, Chills Nose: denies: Rhinorrhea / runny nose, Congestion Throat: denies: Sore throat Respiratory: denies: Cough GI: reports: Diarrhea. denies: Abdominal Pain, Nausea, Vomiting, Constipation Skin: denies: Abrasion (s), Laceration (s) Neurologic: reports: Generalized weakness, Head injury (he states he fell couple of times past week but not sure if hit head.). denies: Focal weakness, Numbness, Near syncope, Headache Psychiatric: reports: Hallucinations (visual last night and earlier this morning.). denies: Depressed, Insomnia PD PAST MEDICAL HISTORY - Past Medical History Cardiovascular: Hypertension, High cholesterol, Coronary artery disease, [place] Respiratory: None Neuro: CVA, Other Endocrine/Autoimmune: None GI: None : None HEENT: None Psych: Depression, Anxiety Musculoskeletal: Osteoarthritis, Chronic back pain, Other Derm: None - Past Surgical History Past Surgical History: Yes General: Other - Present Medications Home Medications: Ambulatory Orders Medication Instructions Recorded Confirmed Aspirin Chewable [[place] 81 mg PO DAILY 01/02/20 11/27/20 Aspirin] Atorvastatin [Lipitor] 20 mg PO DAILY #30 tablet 01/03/20 11/27/20 lisinopriL [Prinivil] 10 mg PO DAILY 01/03/20 11/27/20 Pnv No.95/Ferrous Fum/Folic AC 1 each PO DAILY #30 tablet 03/05/21 10/19/21 [ Tablet] Metoprolol Tartrate [Lopressor] 25 mg PO BID #60 tablet 10/15/20 11/27/20 Potassium Chloride [Klor-Con] 20 meq PO DAILY 11/27/20 11/27/20 chlordiazePOXIDE [Librium] 25 mg PO Q6H #12 cap 11/27/20 LORazepam [Ativan] 1 mg PO Q6H PRN #20 tablet 01/25/21 Thiamine [Vitamin B-1] 100 mg PO DAILY #30 tablet 01/25/21 - Allergies Allergies/Adverse Reactions: Allergies Allergy/AdvReac Type Severity Reaction Status Date / Time No Known Drug Allergies Allergy Verified 01/25/21 07:44 - Living Situation Living Situation: reports: With friend(s) Living Arrangement: reports: At home - Social History Does the pt smoke?: No Smoking Status: Never smoker Does the pt drink ETOH?: Yes ETOH Use: Other (regular heavy use) Does the pt have substance abuse?: No - Immunizations Immunizations are current?: Yes - POLST Patient has POLST: No POLST Status: Full Code PD ED PE NORMAL - Vitals Vital signs reviewed: Yes - General General: Alert and oriented X 3, Well developed/nourished - HEENT HEENT: Atraumatic, Moist mucous membranes - Neck Neck: Supple, no meningeal sign, No adenopathy - Cardiac Cardiac: RRR, No murmur - Respiratory Respiratory: Clear bilaterally - Abdomen Abdomen: Normal bowel sounds, Soft, Non tender, Non distended, No organomegaly - Derm Derm: Normal color, Warm and dry - Extremities Extremities: Other (some general tremoring with arm use both sides. ) - Neuro Neuro: Alert and oriented X 3, No motor deficit, No sensory deficit, Normal speech Results - Vitals Vitals: Oxygen O2 Source Room air - Labs Labs: Laboratory Tests 01/25/21 01/25/21 01/25/21 07:46 07:46 07:46 WBC 6.8 RBC 3.82 L Hgb 12.7 L Hct 37.3 L MCV 97.6 H MCH 33.2 H MCHC 34.0 RDW 13.2 Plt Count 119 L MPV 10.3 Neut # (Auto) 4.9 Lymph # (Auto) 1.[address] [place] # (Auto) 0.8 Eos # (Auto) 0.0 Baso # (Auto) 0.1 Absolute Nucleated RBC 0.00 Nucleated RBC % 0.0 Sodium 136 Potassium 3.1 L Chloride 98 L Carbon Dioxide 20 L Anion Gap 18.0 H BUN 23 H Creatinine 0.8 Estimated GFR (MDRD) 95 Glucose 77 Calcium 8.9 Magnesium 2.0 Total Bilirubin 1.3 H AST 107 H ALT 58 Alkaline Phosphatase 82 Total Protein 7.9 Albumin 4.3 Globulin 3.6 Albumin/Globulin Ratio 1.2 Lipase 44 TSH 0.52 Salicylates < 6.0 Acetaminophen < 10 L Ethyl Alcohol 7.9 - Rads (name of study) head CT Radiology: Prelim report reviewed (no acuter fractures. ), See rad report PD MEDICAL DECISION MAKING - ED course Complexity details: considered differential (visual hallucinations most likely alcohol related; much less likely concussive. Can check head CT. Check labs. ), d/w patient Departure - Departure Disposition: 01 Home, Self Care Clinical Impression: Visual hallucinations, History of recent fall, Alcoholism, Alcohol withdrawal hallucinosis Condition: Stable Record reviewed to determine appropriate education?: Yes Instructions: ED Withdrawal Alcohol Prescriptions: LORazepam [Ativan] 1 mg PO Q6H PRN #20 tablet PRN Reason: Alcohol Withdrawal Thiamine [Vitamin B-1] 100 mg PO DAILY #30 tablet Comments: Your basic blood tests and blood sugar and head CT scan are normal. No signs of metabolic causes for your hallucination. Presume it is related to alcohol and alcohol withdrawal. Avoid alcohol. Seek help for support for not drinking. Consider detox programs if you need further help. Stay well hydrated and eat regularly for good nutrition. Thiamine vitamin supplement daily. Use lorazepam every 6 hours if needed for withdrawal type symptoms and taper the dosing over 3 to 5 days as able to ease the withdrawal type symptoms. Return to the ER as needed. I transmitted your prescriptions to [facility] in [place]. Discharge Date/Time: 01/25/21 09:21
[2021-01-25 07:53] LABS: BASOPHILS # (AUTO) 0.1 10^3/uL (0.0-0.1); BASOPHILS % (AUTO) 0.7 %; EOSINOPHILS % (AUTO) 0.6 %; HCT - HEMATOCRIT 37.3 % (42.0-52.0); HGB - HEMOGLOBIN 12.7 g/dL (14.0-18.0); LYMPHOCYTES % (AUTO) 14.7 %; MEAN CORPUSCULAR HEMOGLOBIN 33.2 pg (27.0-31.0); MEAN CORPUSCULAR VOLUME 97.6 fL (80.0-94.0); MEAN PLATELET VOLUME 10.3 fL (7.4-11.4); MONOCYTES # (AUTO) 0.8 10^3/uL (0.0-1.0); MONOCYTES % (AUTO) 11.8 %; NEUTROPHILS # (AUTO) 4.9 10^3/uL (1.5-6.6); NEUTROPHILS % (AUTO) 71.6 %; PLT - PLATELET COUNT 119 10^3/uL (130-450); RED BLOOD COUNT 3.82 10^6/uL (4.70-6.10); RED CELL DISTRIBUTION WIDTH 13.2 % (12.0-15.0); WHITE BLOOD COUNT 6.8 x10^3/uL (4.8-10.8)
--- NOTE | 2021-01-25 08:10 | CT Report ---
PROCEDURE: HEAD WO INDICATIONS: confused, visual hallucinations; recent fall TECHNIQUE: Noncontrast 4.5 mm thick angled axial sections acquired from the foramen magnum to the vertex. For r adiation dose reduction, the following was used: automated exposure control, adjustment of mA and/or kV according to patient size. COMPARISON: 11/27/2020 FINDINGS: Image quality: Excellent. CSF spaces: Basal cisterns are patent. No extra-axial fluid collections. Ventricles are normal in size and shape. Brain: No midline shift. No intracranial masses or hemorrhage. Joe-white matter interface is norm al. Skull and face: Calvarium and visualized facial bones are intact, without suspicious lesions. Sinuses: Visualized sinuses and mastoids are clear. IMPRESSION: No acute intracranial finding. Reviewed by: Barrington Mejía MD on 01/25/2021 8:08 AM PST Approved by: Barrington Mejía MD on 01/25/2021 8:08 AM [facility] Station ID: [id number]
[2021-01-25 08:13] LABS: ACETAMINOPHEN < 10 ug/mL (10-30); ALBUMIN 4.3 g/dL (3.2-5.5); ALBUMIN/GLOBULIN RATIO 1.2 (1.0-2.2); ALKALINE PHOSPHATASE 82 IU/L (42-121); ALT ALANINE AMINOTRANSFERASE 58 IU/L (10-60); AST ASPARTATE AMINOTRANSFERASE 107 IU/L (10-42); BILIRUBIN,TOTAL 1.3 mg/dL (0.2-1.0); BUN - BLOOD UREA NITROGEN 23 mg/dL (6-20); CREATININE 0.8 mg/dL (0.6-1.2); ETOH - ETHANOL 7.9 mg/dL; GFR - MDRD 95 (>89); LIPASE 44 U/L (22-51); SALICYLATE < 6.0 mg/dL; TOTAL PROTEIN 7.9 g/dL (6.7-8.2)
[2021-01-25 08:17] LABS: CALCIUM 8.9 mg/dL (8.5-10.3); CARBON DIOXIDE - CO2 20 mmol/L (21-32); CHLORIDE 98 mmol/L (101-111); GLUCOSE 77 mg/dL (70-100); POTASSIUM 3.1 mmol/L (3.5-5.0); SODIUM 136 mmol/L (135-145)
[2021-01-25 08:42] VITALS: BP 163/90
== END 2021-01-25 09:21 | disposition home or self-care (01) ==
LOC: EDUNIT# → ED 07:22
DX: F10.239 Alcohol dependence with withdrawal, unspecified (principal); F10.251 Alcohol dependence with alcohol-induced psychotic disorder with hallucinations; Z91.81 History of falling; F03.90 Unspecified dementia, unspecified severity, without behavioral disturbance, psychotic disturbance, mood disturbance, and anxiety; I10 Essential (primary) hypertension; Z79.82 Long term (current) use of aspirin
CPT/HCPCS: 36415; 70450; 80053; 80307; 83690; 83735; 84443; 85025; 96374; 99284; G0480; J2060; 80320; 80329